=== PATIENT | male | born 1940 | race African-American/Black ===

== ENCOUNTER 2016-04-09 05:09 | Inpatient (IN) | payer MEDICARE ==
[2016-04-09] MEDS ORDERED: NS 0.9% 1000 ML* 1,000 ML IV ONE (05:26)
[2016-04-09 05:55] LABS: Albumin 3.3 g/dL (3.2-5.2); BUN/Creatinine Ratio 11.1 (8-20); Calcium 8.2 mg/dL (8.6-10.3); EGFR African American 95.3 (>60); EGFR Non-African American 74.1 (>60); Globulin 3.1 g/dL (2-4); Potassium 3.7 mmol/L (3.5-5.0); Total Bilirubin 1.3 mg/dL (0.2-1.0); Total Protein 6.4 g/dL (6.4-8.9)
[2016-04-09 05:56] LABS: Troponin I 0.01 ng/mL (<0.04)
[2016-04-09 06:10] LABS: Hematocrit 35 % (42-52); Hemoglobin 11.5 g/dl (14.0-18.0); Mean Corpuscular HGB Conc 33 g/dl (31-36); Mean Corpuscular Hemoglobin 27 pg (27-31); Mean Corpuscular Volume 81 fL (80-94); Mean Platelet Volume 7 um3 (7.4-10.4); Red Cell Distribution Width 20 % (10.5-15); White Blood Count 8.4 10^3/ul (3.5-10.8)
[2016-04-09 06:12] LABS: Add Diff/Slide Review? Slide Review Added; Comments Flag Yes
[2016-04-09] MEDS ORDERED: Iohexol 350* (CONTRAST) 500 ML MDV IV ONE ×2 (06:14→08:01)
--- NOTE | 2016-04-09 06:43 | ED ---
Ac Glynn Erika, scribed for Ari Roblero MD on 04/09/16 at 0532 . Shortness of Breath - HPI Summary HPI Summary: Patient is a 75-year-old male BIBA to the ED with c/o SOB. Per EMS, pt has a Hx COPD, lung cancer. They state he has been increasingly SOB for a month, worse today. Pt has had a productive cough with yellow sputum the past few days. Around 04:00 today, pt got up to walk to the bathroom, and had a syncopal episode due to being SOB. EMS treated pt with a duoneb, and he significantly improved. Pt lives alone. - History of Current Complaint Time Seen by Provider: 04/09/16 05:20 Hx Obtained From: Patient, EMS Onset/Duration: Gradual Onset, Lasting Weeks, Worse Since - today Timing: Constant Current Severity: Moderate Dyspnea At: Rest Aggrevating Factors: Deep Breaths Alleviating Factors: EMS Tx Associated Signs & Symptoms: Cough (Productive) - Allergy/Home Medications Allergies/Adverse Reactions: Allergies Allergy/AdvReac Type Severity Reaction Status Date / Time Penicillins Allergy Intermediate Hives Verified 02/09/16 11:29 Home Medications: Home Medications Albuterol Sulfate [Proair Respiclick] 1 - 2 puff INH Q4HR PRN 04/09/16 [History Confirmed 04/09/16] Escitalopram (NF) [Lexapro (NF)] 10 mg PO DAILY 04/09/16 [History Confirmed 06/21] Ipratropium 0.5MG/2.5ML NEB* [Atrovent 0.5 MG NEB.ROZINA*] 0.5 mg INH Q4H PRN 04/09 [History Confirmed 04/09/16] Tamsulosin CAP* [Flomax CAP*] 0.4 mg PO DAILY 04/09/16 [History Confirmed ] PMH/Surg Hx/FS Hx/Imm Hx Endocrine/Hematology History: Denies: Hx Diabetes, Hx Thyroid Disease, Hx Anemia, Hx Unexplained Bleeding Cardiovascular History: Reports: Hx Hypertension - meds used Denies: Hx Aneurysm, Hx Angina, Hx Angioplasty, Hx Auto Implanted Cardiovert Defib, Hx Cardiac Arrest, Hx Cardiomegaly, Hx Congenital Heart Disease, Hx Congestive Heart Failure, Hx Coronary Artery Disease, Hx Deep Vein Thrombosis, Hx Embolism, Hx Hypercholesterolemia, Hx Hypotension, Hx Pacemaker/ICD, Hx Peripheral Vascular Disease, Hx Rheumatic Fever, Hx Syncope, Hx Valvular Heart Disease, Other Cardiovascular Problems/Disorders Respiratory History: Reports: Hx Asthma, Hx Chronic Obstructive Pulmonary Disease (COPD) Denies: Hx Chronic Bronchitis, Hx Cystic Fibrosis, Hx Lung Cancer, Hx Pleural Effusion, Hx Pneumonia, Hx Pulmonary Edema, Hx Pulmonary Embolism, Hx Seasonal Allergies, Hx Sleep Apnea, Other Respiratory Problems/Disorders GI History: Denies: Hx Cirrhosis, Hx Gall Bladder Disease, Hx Obstructive Bowel, Hx Ileostomy, Hx Ulcer History: Denies: Hx Dialysis, Hx Kidney Stones, Hx Renal Disease Musculoskeletal History: Denies: Hx Arthritis, Hx Osteoporosis Sensory History: Reports: Hx Cataracts - surgery 2012, Hx Contacts or Glasses, Hx Vision Problem Denies: Hx Hearing Aid, Hx Hearing Problem Opthamlomology History: Reports: Hx Cataracts - surgery 2012, Hx Contacts or Glasses, Hx Vision Problem Neurological History: Denies: Hx Dementia, Hx Developmental Delay, Hx Headaches, Hx Migraine, Hx Nerve Disease, Hx Seizures, Hx Transient Ischemic Attacks (TIA) Psychiatric History: Reports: Hx Anxiety, Hx Depression, Hx Panic Disorder - ANXIETY, Hx Substance Abuse - PREVIOUS DRINKER - Cancer History Cancer Type, Location and Year: lung CA Hx Chemotherapy: No - Surgical History Surgery Procedure, Year, and Place: hernia x3, lung bx 2014 Hx Anesthesia Reactions: No Infectious Disease History: Reports: Hx Hepatitis Denies: Hx Human Immunodeficiency Virus (HIV), Hx of Known/Suspected MRSA, Hx Tuberculosis, History Other Infectious Disease, Traveled Outside the [place] in Last 30 Days - Family History Known Family History: Positive: Other - Cancer - Social History Lives: Alone Alcohol Use: None Alcohol Amount: 2 beers, used to be an alcoholic Substance Use Type: Reports: None Substance Use Comment - Amount & Last Used: Pt unable to recall last use, but stated it was a few months ago. Hx Tobacco Use: Yes Smoking Status (MU): Former Smoker Type: Cigarettes Have You Smoked in the Last Year: Yes - quit almost a year ago as of 07/03/15 Review of Systems Positive: Shortness Of Breath, Cough Positive: Syncope All Other Systems Reviewed And Are Negative: Yes Physical Exam Triage Information Reviewed: Yes Vital Signs On Initial Exam: Temp Pulse Resp BP Pulse Ox 98.5 F 142 22 125/73 97 04/09/16 05:15 04/09/16 05:15 04/09/16 05:15 04/09/16 05:15 04/09/16 05:15 Vital Signs Reviewed: Yes Appearance: Positive: No Pain Distress, Ill-Appearing Skin: Positive: Warm Head/Face: Positive: Normal Head/Face Inspection Eyes: Positive: MIRTHA ENT: Positive: Hearing grossly normal Neck: Positive: Supple Respiratory/Lung Sounds: Positive: Decreased Breath Sounds, Rhonchi - rt side Cardiovascular: Positive: Tachycardia Abdomen Description: Positive: Nontender, Soft Bowel Sounds: Positive: Present Musculoskeletal: Positive: Strength/ROM Intact Neurological: Positive: Sensory/Motor Intact Diagnostics - Vital Signs Vital Signs Temp Pulse Resp BP Pulse Ox 04/09/16 05:17 24 125/73 04/09/16 05:15 98.5 F 142 22 125/73 97 - Laboratory Lab Results: Lab Results 04/09/16 04/09/16 04/09/16 Range/Units 05:20 05:20 05:20 WBC (3.5-10.8) 10^3/ul RBC (4.0-5.4) 10^6/ul Hgb (14.0-18.0) g/dl Hct (42-52) % MCV (80-94) fL MCH (27-31) pg MCHC (31-36) g/dl RDW (10.5-15) % Plt Count (150-450) 10^3/ul MPV (7.4-10.4) um3 Neut % (Auto) (38-83) % Lymph % (Auto) (25-47) % [place] % (Auto) (1-9) % Eos % (Auto) (0-6) % Baso % (Auto) (0-2) % Absolute Neuts (auto) (1.5-7.7) 10^3/ul Absolute Lymphs (auto) (1.0-4.8) 10^3/ul Absolute Monos (auto) (0-0.8) 10^3/ul Absolute Eos (auto) (0-0.6) 10^3/ul Absolute Basos (auto) (0-0.2) 10^3/ul Absolute Nucleated RBC 10^3/ul Nucleated RBC % D-Dimer, Quantitative 508 H (Less Than 230) ng/mL Sodium 123 L (133-145) mmol/L Potassium 3.7 (3.5-5.0) mmol/L Chloride 91 L (101-111) mmol/L Carbon Dioxide 23 (22-32) mmol/L Anion Gap 9 (2-11) mmol/L BUN 11 (6-24) mg/dL Creatinine 0.99 (0.67-1.17) mg/dL Est GFR ( Amer) 95.3 (>60) Est GFR (Non-Af Amer) 74.1 (>60) BUN/Creatinine Ratio 11.1 (8-20) Glucose 136 H (70-100) mg/dL Lactic Acid 2.2 H* (0.5-2.0) mmol/L Calcium 8.2 L (8.6-10.3) mg/dL Total Bilirubin 1.30 H (0.2-1.0) mg/dL AST 27 (13-39) U/L ALT 29 (7-52) U/L Alkaline Phosphatase 45 (34-104) U/L Troponin I 0.01 (<0.04) ng/mL B-Natriuretic Peptide ( - 100) pg/mL Total Protein 6.4 (6.4-8.9) g/dL Albumin 3.3 (3.2-5.2) g/dL Globulin 3.1 (2-4) g/dL Albumin/Globulin Ratio 1.1 (1-3) 04/09/16 04/09/16 Range/Units 05:20 05:20 WBC 8.4 (3.5-10.8) 10^3/ul RBC 4.30 (4.0-5.4) 10^6/ul Hgb 11.5 L (14.0-18.0) g/dl Hct 35 L (42-52) % MCV 81 (80-94) fL MCH 27 (27-31) pg MCHC 33 (31-36) g/dl RDW 20 H (10.5-15) % Plt Count 242 (150-450) 10^3/ul MPV 7 L (7.4-10.4) um3 Neut % (Auto) 74.1 (38-83) % Lymph % (Auto) 9.5 L (25-47) % [place] % (Auto) 12.5 H (1-9) % Eos % (Auto) 2.6 (0-6) % Baso % (Auto) 1.3 (0-2) % Absolute Neuts (auto) 6.2 (1.5-7.7) 10^3/ul Absolute Lymphs (auto) 0.8 L (1.0-4.8) 10^3/ul Absolute Monos (auto) 1.0 H (0-0.8) 10^3/ul Absolute Eos (auto) 0.2 (0-0.6) 10^3/ul Absolute Basos (auto) 0.1 (0-0.2) 10^3/ul Absolute Nucleated RBC 0 10^3/ul Nucleated RBC % 0 D-Dimer, Quantitative (Less Than 230) ng/mL Sodium (133-145) mmol/L Potassium (3.5-5.0) mmol/L Chloride (101-111) mmol/L Carbon Dioxide (22-32) mmol/L Anion Gap (2-11) mmol/L BUN (6-24) mg/dL Creatinine (0.67-1.17) mg/dL Est GFR ( Amer) (>60) Est GFR (Non-Af Amer) (>60) BUN/Creatinine Ratio (8-20) Glucose (70-100) mg/dL Lactic Acid (0.5-2.0) mmol/L Calcium (8.6-10.3) mg/dL Total Bilirubin (0.2-1.0) mg/dL AST (13-39) U/L ALT (7-52) U/L Alkaline Phosphatase (34-104) U/L Troponin I (<0.04) ng/mL B-Natriuretic Peptide 11 ( - 100) pg/mL Total Protein (6.4-8.9) g/dL Albumin (3.2-5.2) g/dL Globulin (2-4) g/dL Albumin/Globulin Ratio (1-3) Result Diagrams: 04/09/16 05:20 04/09/16 05:20 Lab Statement: Any lab studies that have been ordered have been reviewed, and results considered in the medical decision making process. - Radiology CXR Xray Interpretation: Positive (See Comments) - Right upper lobe infiltrate/mass Radiology Interpretation Completed By: ED Physician - EKG 05:15 Cardiac Rate: Tachycardia - at 134 bpm EKG Interpretation: Atrial tachycardia Course/Dx - Diagnoses Provider Diagnoses: Syncope, Community acquired pneumonia, Lung cancer, Pleural effusion - Physician Notifications Instructed by Provider To: Admit As Inpatient - Critical Care Time Critical Care Time: 30-74 min Discharge - Discharge Plan Condition: Fair Disposition: ADMITTED TO [facility] The documentation as recorded by the Ac parikh Erika accurately reflects the service I personally performed and the decisions made by , Ari Roblero MD.
--- NOTE | 2016-04-09 08:12 | RAD ---
INDICATION: History of lung carcinoma at the RIGHT upper lobe. Shortness of breath. Recent pneumothorax. History of COPD. COMPARISON: February 22, 2016 CT. August 24, 2015 chest radiograph. TECHNIQUE: Dual energy PA and routine lateral views of the chest were obtained. REPORT: Alveolar consolidation involving the RIGHT upper lobe grossly new compared with the February 22, 2016 exam is most suspicious for pneumonia. Region of residual tumor/scarring at the RIGHT upper lobe superior laterally is partially obscured by the superimposed alveolar consolidation. Diffuse mild prominence of interstitial markings. Grossly clear pleural spaces. Negative for pneumothorax.. LEFT chest port tip at level of superior vena cava directed central. Negative for cardiomegaly. Unremarkable central pulmonary vasculature and mediastinal contours. IMPRESSION: The constellation of findings is most consistent with RIGHT upper with obscuration of the known residual RIGHT upper lobe tumor/scarring.
--- NOTE | 2016-04-09 08:24 | RAD ---
INDICATION: Lung carcinoma. COPD. History of pneumothorax. New consolidation in the RIGHT upper lobe on chest radiograph of the same date. COMPARISON: April 09, 2016 chest radiograph and February 22, 2016 CT. TECHNIQUE: Multidetector CT images were obtained from the lung apices to the upper abdomen with 77 mL Omnipaque 350 IV contrast. Pulmonary angiogram protocol. Multiplanar reformation including with maximum intensity projection. REPORT: Diffuse RIGHT side airway wall thickening from the distal RIGHT mainstem bronchus extending peripheral. Severe narrowing of the RIGHT upper lobe airways with progression. RIGHT upper lobe suprahilar mass measures up to 4.1 x 4.3 cm significantly increased from 1.7 x 2.2 cm previously. Patchy alveolar and interstitial opacities in the RIGHT upper lobe corresponding with the radiographic finding. Diffuse mild prominence of interstitial markings as well as patchy rarefaction consistent with emphysema. 1.6 x 6.3 cm posterior RIGHT apical bulla. Small dependent RIGHT pleural effusion. The LEFT lung is remarkable for minimal basilar atelectasis. Negative for LEFT pleural effusion. Negative for pneumothorax. Mediastinal and RIGHT hilar lymphadenopathy. 1.3 cm short axis precarinal lymph node decreased from 1.6 cm previously. 1.5 cm short axis subcarinal node increased from 0.9 cm previously. 1.9 cm short axis RIGHT suprahilar lymph node increased from 1.2 cm previously. 1.5 cm short axis anterior RIGHT hilar lymph node increased from 1.2 cm previously. Negative for cardiomegaly. Physiologic small volume of pericardial fluid without significant interval change. Prominent central pulmonary arteries with peripheral attenuation most consistent with pulmonary arterial hypertension. Mildly limited CT pulmonary angiogram at the LEFT lower lung zone due to motion artifact. No compelling filling defects evident from the main to the segmental and subsegmental pulmonary arteries to indicate pulmonary embolism. Limited images through the upper abdomen are remarkable for a dominant 6.2 cm sharply circumscribed simple appearing cyst at the dome of the LEFT hepatic lobe. Negative for suspicious thoracic osseous lesions. IMPRESSION: 1. No evidence for pulmonary embolism. 2. The constellation of findings is consistent with significant interval progression of RIGHT upper lobe lung carcinoma with associated worsening of mediastinal and RIGHT hilar lymphadenopathy. Alveolar interstitial opacity within the RIGHT upper lobe peripheral to the tumor may represent postobstructive pneumonitis/pneumonia or less likely lymphangitic spread of carcinoma. 3. Small RIGHT pleural effusion. 4. Negative for pneumothorax.
[2016-04-09] MEDS ORDERED: Cefepime(*) 2 GM in NS 0.9% 50 ML* 50 ML IVPB ONE (08:45)
[2016-04-09] MEDS ORDERED: Ciprofloxacin 400MG IVPREMIX(* 400 MG/200 ML BAG IVPB ONE (08:45)
[2016-04-09] MEDS ORDERED: Albuterol/Ipratropium NEB.SOL* Albuterol 2.5 MG/Ipratropium 0.5 MG 3 ML INH PRN (12:06)
[2016-04-09] MEDS ORDERED: Mometasone/Formoter 100/5 MDI INH PRN (12:06)
--- NOTE | 2016-04-09 14:00 | ED ---
Juan Glynn Soohyun, scribed for Villa Loco MD on 04/09/16 at 0934 . Progress - Progress Note Progress Note: Signed out from Dr. Roblero at the shift change. Course/Dx - Diagnoses Provider Diagnoses: Syncope, Community acquired pneumonia, Lung cancer, Pleural effusion - Provider Notifications Discussed Care Of Patient With: Both Oncologist and Hospitalist paged at [address] Mckinnon (Oncologist) at 0930 AM Time Discussed With Above Provider: 09:30 Instructed by Provider To: Admit As Inpatient The documentation as recorded by the scribeJuan Soohyun accurately reflects the service I personally performed and the decisions made by Claudy ramsey Jerry, MD.
[2016-04-09] MEDS: Acetaminophen TAB* 325 MG PO PRN (19:54)
[2016-04-09] MEDS ORDERED: Levalbuterol 1.25MG/0.5ML NEB INH ONE (20:00)
[2016-04-09] MEDS ORDERED: Cefepime(*) 2 GM in NS 0.9% 50 ML* 50 ML IVPB SCH (20:00)
[2016-04-09] MEDS: Ipratropium 0.5MG/2.5ML NEB* 0.5 MG/2.5 ML NEB.SOLN INH PRN (20:02)
[2016-04-09] MEDS: Levalbuterol 1.25MG/0.5ML NEB INH SCH (20:03)
[2016-04-09] MEDS: Ipratropium 0.5MG/2.5ML NEB* 0.5 MG/2.5 ML NEB.SOLN INH SCH (20:04)
--- NOTE | 2016-04-09 20:07 | PN ---
Hospitalist Progress Note CTSP for SOB/wheezing. On arrival patient appeared to be lying comfortably in bed but was audibly wheezing and SOB while speaking, stated he was SOB even at rest. Denies chest pain. On exam, he has diffuse wheezing throughout all lung armas, tachycardic, irregular at times, no LE edema On tele patient has been persistently tachycardic since admission with HR ranging from low 100s to 130s-140s. Appears to be sinus with APCs. Dr. Escobedo ordered one time Xopenex. Will continue q4h scheduled Xopenex and Ipratropium. Will order IV Solumedrol 40 mg q8h, patient will receive 2 doses overnight and primary team can decide on further therapy in the morning. Continue to monitor on tele, hopefully discontinuation of albuterol will aid in resolution of tachycardia. Would opt to hold on any BZDs at this point as patient does not appear acutely anxious.
[2016-04-09] MEDS: Ciprofloxacin 400MG IVPREMIX(* 400 MG/200 ML BAG IVPB SCH (21:25)
[2016-04-09] MEDS: methylPREDNISolone SOD 40 MG* 1 ML VIAL IV SCH (21:25)
[2016-04-09] MEDS: Montelukast Sodium TAB* 10 MG PO SCH (21:25)
[2016-04-09] MEDS: Heparin VIAL(*) 5000 UNITS/ML VIAL (FIVE THOUSAND) SUBCUT SCH (22:52)
[2016-04-09] MEDS: Cefepime(*) 2 GM in NS 0.9% 50 ML* 50 ML IVPB SCH (22:52)
--- NOTE | 2016-04-09 23:17 | CONS ---
PULMONARY CONSULTATION REPORT: DATE OF CONSULTATION: 04/09/16 CONSULTATION REQUESTED BY: MATT Brown. REASON FOR CONSULTATION: Evaluation of shortness of breath and cough. HISTORY OF PRESENT ILLNESS: The patient is a 75-year-old male known to me from outpatient evaluation with history of emphysema, T3N2 [id number] lung cancer involving right upper lobe status post chemotherapy and radiation. The patient was brought into the emergency room for evaluation of worsening shortness of breath. The patient was last seen by me in February 2016, at which time he presented with acute COPD exacerbation. The patient improved with prednisone and outpatient antibiotics. The patient started having worsening shortness of breath over the [place] time. The patient reports subjective fevers. The patient also reports worsening shortness of breath and productive cough. The patient denies hemoptysis, loss of weight. He has gained significant weight recently. The patient lives in [place] [facility] and reports sick contacts recently. The patient denies recent travel. Further evaluation in the emergency room, the patient was noted to be in significant respiratory distress with wheezing. The patient was started on broad- spectrum antibiotics and was admitted for further evaluation. The patient had CT of chest performed in the ED. I have personally reviewed CT scan of the chest - no evidence of pulmonary embolism. The patient was noted to have significant interval progression of right upper lobe lesion along with worsening mediastinal and hilar lymphadenopathy. The patient also noted to have airspace opacities involving the right upper lobe. There was evidence of small right pleural effusion. The patient did not have white counts on CBC. His lactic acid was slightly elevated at 2.2. His troponins were within normal limits. PAST MEDICAL HISTORY: 1. COPD. 2. T3N2 [id number] lung cancer involving right upper lobe status post chemo and radiation. 3. Depression. 4. Hypertension. 5. Right-sided inguinal hernia. 6. Accelerated junctional rhythm. 7. Diverticulitis. PAST SURGICAL HISTORY: 1. Hernia repair. 2. Tonsillectomy and adenoidectomy. 3. Right eye surgery. 4. Cataract. 5. Colonoscopy. ALLERGIES: PENICILLIN. FAMILY HISTORY: Reviewed and noncontributory to current complaint. 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 Smoked 1 pack per day, quit recently, occasional alcohol intake. No drug abuse. REVIEW OF SYSTEMS: All 14 systems were reviewed and as per HPI, review of systems negative other than stated in HPI. PHYSICAL EXAMINATION: General: The patient is in bed, in no significant distress. Vital Signs: Temperature 100.1, pulse 112 beats per minute, respiratory rate 18 per minute, O2 sat 98% on 2 L, blood pressure 129/71. HEENT : Pupils are equal and reactive to light. Mucous membranes moist. Neck: Supple. No accessory muscles of respiration. Respiratory: Good air entry bilaterally, scattered wheeze present bilaterally, prolonged expiratory phase. Cardiovascular: S1, S2 present. Tachycardic. Abdomen: Soft, nontender, nondistended. Bowel sounds present. Extremities: Normal range of motion. No fractures. Skin: No rashes or bruises. Neurological: No focal deficits. LABORATORY DATA: WBC count 8.4, hemoglobin 11.5, hematocrit 35, platelet count 242. D-dimer elevated at 508. Sodium 123, potassium 3.7, chloride 91, bicarb 23, BUN 9, creatinine 0.99, lactate 2.2, troponins within normal limits. CT of the chest as described above in HPI. IMPRESSION AND RECOMMENDATION: 75-year-old old male with [id number] lung cancer of right upper lobe status post chemotherapy and radiation with worsening shortness of breath, with recent chronic obstructive pulmonary disease exacerbation. Acute chronic obstructive pulmonary disease exacerbation. Postobstructive pneumonia versus Recurrence of lung cancer. Continue with broad-spectrum antibiotics for management of postobstructive pneumonia. Continue with bronchodilators. Given evidence of acute chronic obstructive pulmonary disease exacerbation, would also recommend IV Solu-Medrol. Continue with O2 supplementation. Lactic acid is elevated with no white count or acute signs of sepsis. The patient might need bronchoscopy with transbronchial biopsy once respiratory status improves slightly to evaluate for postobstructive pneumonia versus recurrence of malignancy. Thank you for allowing me to participate in the care of your patient. Will follow up with you. [id number]/[facility] #: [id number] ELEUTERIO
[2016-04-10] MEDS: Levalbuterol 1.25MG/0.5ML NEB INH SCH ×7 (00:03→23:39)
[2016-04-10] MEDS: Ipratropium 0.5MG/2.5ML NEB* 0.5 MG/2.5 ML NEB.SOLN INH SCH ×7 (00:03→23:40)
[2016-04-10] MEDS: methylPREDNISolone SOD 40 MG* 1 ML VIAL IV SCH ×3 (05:44→21:03)
[2016-04-10] MEDS: Heparin VIAL(*) 5000 UNITS/ML VIAL (FIVE THOUSAND) SUBCUT SCH ×3 (05:44→21:02)
[2016-04-10] MEDS: CMC:Escitalopram (NF) 10 MG TAB PO SCH (09:14)
[2016-04-10] MEDS: Ciprofloxacin 400MG IVPREMIX(* 400 MG/200 ML BAG IVPB SCH (09:14)
[2016-04-10] MEDS: Tamsulosin CAP* 0.4 MG PO SCH (09:14)
[2016-04-10] MEDS: Cefepime(*) 2 GM in NS 0.9% 50 ML* 50 ML IVPB SCH ×2 (10:31→21:49)
--- NOTE | 2016-04-10 10:37 | PN ---
Progress Note - Progress Note SOAP: Subjective: significant SOB over night, treated with nebs and increased steroids. currently feels better this am. still coughing up thick sputum. Objective: Vital Signs Temp Pulse Resp BP Pulse Ox 98.7 F 89 16 123/68 92 04/10/16 07:28 04/10/16 07:48 04/10/16 08:00 04/10/16 07:28 04/10/16 07:48 sitting flat in bed in NAD perr eomi op dry adentulous diffuse exp wheeze and rhonchi s1 s2 nl soft obese NT + bs no LE edema A+O x 3, nonfocal neurological exam Laboratory Results - last 24 hr 04/09/16 04/09/16 15:09 21:25 Lactic Acid 1.4 Troponin I 0.01 Acetaminophen (Tylenol Tab*) 650 mg PO Q4H PRN PRN Reason: FEVER Last Admin: 04/09/16 19:54 Dose: 650 mg Escitalopram Oxalate (Lexapro (Nf)) 10 mg PO DAILY [facility] Last Admin: 04/10/16 09:14 Dose: 10 mg Heparin Sodium (Porcine) (Heparin Vial(*)) 5,000 units SUBCUT Q8HR [facility] Last Admin: 04/10/16 05:44 Dose: 5,000 units Ciprofloxacin/Dextrose (Cipro 400 Mg Ivpremix(*)) 400 mg in 200 mls @ 200 mls/ hr IVPB Q12HR [facility] Last Admin: 04/10/16 09:14 Dose: 200 mls/hr Cefepime HCl 2 gm/ Sodium (Chloride) 50 mls @ 100 mls/hr IVPB 1000,2200 [facility] Last Admin: 04/09/16 22:52 Dose: 100 mls/hr Ipratropium Sheldon (Atrovent 0.5 Mg Neb.Sameera*) 0.5 mg INH Q4H PRN PRN Reason: SOB/WHEEZING Last Admin: 04/09/16 20:02 Dose: 0.5 mg Ipratropium Sheldon (Atrovent 0.5 Mg Neb.Sameera*) 0.5 mg INH [id number] AWAKE [facility] Last Admin: 04/10/16 07:46 Dose: 0.5 mg Levalbuterol HCl (Xopenex 1.25 Mg/0.5 Ml Neb.Sameera*) 1.25 mg INH [id number] AWAKE [facility] Last Admin: 04/10/16 07:47 Dose: 1.25 mg Methylprednisolone Sodium Succinate (Solu-Medrol*) 40 mg IV Q8H [facility] Last Admin: 04/10/16 05:44 Dose: 40 mg Mometasone Furoate/Formoterol Fumar (Dulera 100/5 Mdi*) 2 puff INH BID PRN PRN Reason: SHORTNESS OF BREATH Montelukast Sodium (Singulair Tab*) 10 mg PO BEDTIME [facility] Last Admin: 04/09/16 21:25 Dose: 10 mg Tamsulosin HCl (Flomax Cap*) 0.4 mg PO DAILY [facility] Last Admin: 04/10/16 09:14 Dose: 0.4 mg Assessment: 75 yo M w T3N2 lung CA sp chemoRT currently in surveillance presenting with fevers, cough and worsening SOB. His CT shows evidence of a 4 cm right upper lobe mass that is either PNA (there are air bronchograms) or recurrent/ progressive disease. I completely agree with Dr. Bahena that we will likely need bronchoscopy to sort this out. For now we will continue with steroids, antibiotics and nebulizers. He seems better than last night, though his lungs still sound rhonchorous and wheezy. Plan: -fu sputum culture -labs today pending -influenza swab, though less likely -cont solumedrol 40 mg IV q8 hrs -cont nebs -stop cipro, change to clinda -heparin sc DVT prophylaxis DNR
[2016-04-10 10:55] LABS: Hematocrit 32 % (42-52); Hemoglobin 10.6 g/dl (14.0-18.0); Mean Corpuscular HGB Conc 33 g/dl (31-36); Mean Corpuscular Hemoglobin 27 pg (27-31); Mean Corpuscular Volume 80 fL (80-94); Mean Platelet Volume 7 um3 (7.4-10.4); Red Blood Count 3.95 10^6/ul (4.0-5.4); Red Cell Distribution Width 20 % (10.5-15); White Blood Count 6.4 10^3/ul (3.5-10.8)
[2016-04-10 11:15] LABS: BUN/Creatinine Ratio 12.6 (8-20); Calcium 8.2 mg/dL (8.6-10.3); EGFR African American 110.6 (>60); Potassium 4.2 mmol/L (3.5-5.0); Total Bilirubin 0.8 mg/dL (0.2-1.0)
[2016-04-10] MEDS: Clindamycin 600 MG IVPREMIX(* 600 MG/50 ML SDV IV SCH ×2 (11:41→18:56)
--- NOTE | 2016-04-10 18:42 | PN ---
Progress Note - Progress Note Note: Pulm consult f/u note 04/10/16. Pt seen and examined at bedside. Pt reported improvement in breathing. Had significant SOB yesterday that responded to bronchodilators and solumedrol Active Medications Generic Name Dose Route Start Last Admin Trade Name Freq PRN Reason Stop Dose Admin Acetaminophen 650 mg 04/09/16 18:58 04/09/16 19:54 Tylenol Tab* PO 650 mg Q4H PRN Administration FEVER Escitalopram Oxalate 10 mg 04/10/16 09:00 04/10/16 09:14 Lexapro (Nf) PO 10 mg DAILY [facility] Administration Heparin Sodium (Porcine) 5,000 units 04/09/16 22:00 04/10/16 14:48 Heparin Vial(*) SUBCUT 5,000 units Q8HR [facility] Administration Cefepime HCl 2 gm/ Sodium 50 mls @ 100 mls/hr 04/09/16 22:00 04/10/16 10:31 Chloride IVPB 100 mls/hr 1000,2200 [facility] Administration Clindamycin HCl/Dextrose 600 mg in 50 mls @ 100 mls/hr 04/10/16 11:00 11:41 Cleocin 600 Mg Ivpremix(*) Sdv IV 100 mls/hr Q8H [facility] Administration Sodium Chloride 500 mls @ 0 mls/hr 04/10/16 19:00 04/10/16 18:25 Ns 0.9% 500 Ml Bag* IV 04/10/16 19:01 999 mls/hr ONCE ONE Administration As Directed Ipratropium [place] 0.5 mg 04/09/16 12:06 04/09/16 20:02 Atrovent 0.5 Mg Neb.Sameera* INH 0.5 mg Q4H PRN Administration SOB/WHEEZING Ipratropium [place] 0.5 mg 04/09/16 20:00 04/10/16 16:09 Atrovent 0.5 Mg Neb.Sameera* INH 0.5 mg [id number] AWAKE [facility] Administration Levalbuterol HCl 1.25 mg 04/09/16 20:00 04/10/16 16:09 Xopenex 1.25 Mg/0.5 Ml Neb.Sameera* INH 1.25 mg [id number] AWAKE [facility] Administration Methylprednisolone Sodium Succinate 40 mg 04/09/16 21:00 04/10/16 14:48 Solu-Medrol* IV 40 mg Q8H [facility] Administration Mometasone Furoate/Formoterol Fumar 2 puff 04/09/16 12:06 Dulera 100/5 Mdi* INH BID PRN SHORTNESS OF BREATH Montelukast Sodium 10 mg 04/09/16 21:00 04/09/16 21:25 Singulair Tab* PO 10 mg BEDTIME [facility] Administration Tamsulosin HCl 0.4 mg 04/10/16 09:00 04/10/16 09:14 Flomax Cap* PO 0.4 mg DAILY [facility] Administration Vital Signs Temp Pulse Resp BP Pulse Ox 98.0 F 122 14 142/82 92 04/10/16 15:23 04/10/16 16:11 04/10/16 16:11 04/10/16 15:23 04/10/16 16:11 Gen:sitting in chair, in NAD HEENT: PANCHO, no JVD, mucus membranes dry Resp: diffuse exp wheeze and rhonchi b/l CVS; s1 s2 nl Abd: soft obese NT + bs Ext: no LE edema Neuro: A+O x 3, nonfocal neurological exam Laboratory Results - last 24 hr 04/09/16 04/09/16 15:09 21:25 Lactic Acid 1.4 Troponin I 0.01 I/R: 75 yo M w T3N2 lung CA sp chemoRT currently in surveillance presenting with fevers, cough and worsening SOB. His CT shows progression and change in right upper lobe mass with increase in size and surrounding air space opacities that is either PNA (there are air bronchograms) or recurrent/progressive disease. Pt with acute COPD exacerbation currently improving with bronchodilators and solumedrol He will need bronchoscopy when resp status is improved for transbronchial bx to evaluate for recurrence of malignancy Radiation pneumonitis is also possibility which should respond to steroids -cont solumedrol 40 mg IV q8 hrs -cont nebs -cont clinda -heparin sc DVT prophylaxis DNR
[2016-04-10] MEDS ORDERED: NS 0.9% 500 ML* 500 ML IV ONE (19:00)
[2016-04-10] MEDS: Montelukast Sodium TAB* 10 MG PO SCH (21:02)
[2016-04-10] MEDS: Acetaminophen TAB* 325 MG PO PRN (23:47)
[2016-04-11] MEDS: Levalbuterol 1.25MG/0.5ML NEB INH SCH ×6 (03:36→23:36)
[2016-04-11] MEDS: Ipratropium 0.5MG/2.5ML NEB* 0.5 MG/2.5 ML NEB.SOLN INH SCH ×6 (03:36→23:36)
[2016-04-11] MEDS: Clindamycin 600 MG IVPREMIX(* 600 MG/50 ML SDV IV SCH ×3 (04:16→19:29)
[2016-04-11] MEDS: methylPREDNISolone SOD 40 MG* 1 ML VIAL IV SCH ×3 (05:17→21:49)
[2016-04-11] MEDS: Heparin VIAL(*) 5000 UNITS/ML VIAL (FIVE THOUSAND) SUBCUT SCH ×3 (05:17→21:50)
[2016-04-11 05:21] LABS: Hematocrit 32 % (42-52); Hemoglobin 10.4 g/dl (14.0-18.0); Mean Corpuscular HGB Conc 33 g/dl (31-36); Mean Corpuscular Hemoglobin 27 pg (27-31); Mean Corpuscular Volume 81 fL (80-94); Mean Platelet Volume 7 um3 (7.4-10.4); Red Cell Distribution Width 20 % (10.5-15)
[2016-04-11 05:31] LABS: BUN/Creatinine Ratio 17.2 (8-20); Calcium 8.7 mg/dL (8.6-10.3); EGFR African American 95.3 (>60); EGFR Non-African American 74.1 (>60); Potassium 4.2 mmol/L (3.5-5.0)
[2016-04-11] MEDS ORDERED: NS 0.9% 1000 ML* 1,000 ML IV SCH (08:00)
[2016-04-11] MEDS ORDERED: Morphine INJ* 2 MG/ML 1 ML CARPUJECT IV STA (08:12)
[2016-04-11] MEDS ORDERED: methylPREDNISolone 125 MG* 2 ML VIAL IV STA (08:13)
--- NOTE | 2016-04-11 08:13 | PN ---
Progress Note - Progress Note SOAP: Subjective: significant SOB this am. reports that he had trouble breathing all night (I was not informed). does not feel that the breathing treatments are helping. also very cold and shaking (though his room is quite cold right now). Objective: Vital Signs Temp Pulse Resp BP Pulse Ox 98.0 F 98 16 136/79 99 04/11/16 03:33 04/11/16 03:51 04/11/16 07:46 04/11/16 03:33 04/11/16 03:51 current RR 22, O2 sat 96% on 3 L in clear respiratory distress using excessory muscles perr eomi op dry tachycardic diffuse exp wheeze, rhonchi soft nt +bs no le edema A+O x 3 nonfocal neurological exam Laboratory Results - last 24 hr 04/10/16 04/10/16 04/10/16 10:45 10:45 11:50 WBC 6.4 RBC 3.95 L Hgb 10.6 L Hct 32 L MCV 80 MCH 27 MCHC 33 RDW 20 H Plt Count 241 MPV 7 L Neut % (Auto) 92.0 H Lymph % (Auto) 3.7 L [place] % (Auto) 3.9 Eos % (Auto) 0.1 Baso % (Auto) 0.3 Absolute Neuts (auto) 5.9 Absolute Lymphs (auto) 0.2 L Absolute Monos (auto) 0.2 Absolute Eos (auto) 0 Absolute Basos (auto) 0 Absolute Nucleated RBC 0 Nucleated RBC % 0 Sodium 126 L Potassium 4.2 Chloride 93 L Carbon Dioxide 23 Anion Gap 10 BUN 11 Creatinine 0.87 Est GFR ( Amer) 110.6 Est GFR (Non-Af Amer) 86.0 BUN/Creatinine Ratio 12.6 Glucose 227 H Calcium 8.2 L Magnesium Total Bilirubin 0.80 AST 22 ALT 24 Alkaline Phosphatase 42 Total Protein 6.0 L Albumin 3.0 L Globulin 3.0 Albumin/Globulin Ratio 1.0 Influenza A (Rapid) Negative Influenza B (Rapid) Negative 04/11/16 04/11/16 04:26 04:26 WBC 13.0 H RBC 3.90 L Hgb 10.4 L Hct 32 L MCV 81 MCH 27 MCHC 33 RDW 20 H Plt Count 275 MPV 7 L Neut % (Auto) 91.0 H Lymph % (Auto) 2.6 L [place] % (Auto) 6.1 Eos % (Auto) 0.1 Baso % (Auto) 0.2 Absolute Neuts (auto) 11.9 H Absolute Lymphs (auto) 0.3 L Absolute Monos (auto) 0.8 Absolute Eos (auto) 0 Absolute Basos (auto) 0 Absolute Nucleated RBC 0.01 Nucleated RBC % 0 Sodium 123 L Potassium 4.2 Chloride 92 L Carbon Dioxide 20 L Anion Gap 11 BUN 17 Creatinine 0.99 Est GFR ( Amer) 95.3 Est GFR (Non-Af Amer) 74.1 BUN/Creatinine Ratio 17.2 Glucose 212 H Calcium 8.7 Magnesium 2.0 Total Bilirubin AST ALT Alkaline Phosphatase Total Protein Albumin Globulin Albumin/Globulin Ratio Influenza A (Rapid) Influenza B (Rapid) Acetaminophen (Tylenol Tab*) 650 mg PO Q4H PRN PRN Reason: FEVER Last Admin: 04/10/16 23:47 Dose: 650 mg Escitalopram Oxalate (Lexapro (Nf)) 10 mg PO DAILY [facility] Last Admin: 04/10/16 09:14 Dose: 10 mg Heparin Sodium (Porcine) (Heparin Vial(*)) 5,000 units SUBCUT Q8HR [facility] Last Admin: 04/11/16 05:17 Dose: 5,000 units Cefepime HCl 2 gm/ Sodium (Chloride) 50 mls @ 100 mls/hr IVPB 1000,2200 [facility] Last Admin: 04/10/16 21:49 Dose: 100 mls/hr Clindamycin HCl/Dextrose (Cleocin 600 Mg Ivpremix(*) Sdv) 600 mg in 50 mls @ 100 mls/hr IV Q8H [facility] Last Admin: 04/11/16 04:16 Dose: 100 mls/hr Ipratropium [place] (Atrovent 0.5 Mg Neb.Sameera*) 0.5 mg INH Q4H PRN PRN Reason: SOB/WHEEZING Last Admin: 04/09/16 20:02 Dose: 0.5 mg Ipratropium [place] (Atrovent 0.5 Mg Neb.Sameera*) 0.5 mg INH [id number] AWAKE [facility] Last Admin: 04/11/16 08:14 Dose: 0.5 mg Levalbuterol HCl (Xopenex 1.25 Mg/0.5 Ml Neb.Sameera*) 1.25 mg INH [id number] AWAKE [facility] Last Admin: 04/11/16 08:14 Dose: 1.25 mg Methylprednisolone Sodium Succinate (Solu-Medrol*) 40 mg IV Q8H [facility] Last Admin: 04/11/16 05:17 Dose: 40 mg Methylprednisolone Sodium Succinate (Solu-Medrol*) 125 mg IV ONCE STA Stop: 04/11/16 08:14 Mometasone Furoate/Formoterol Fumar (Dulera 100/5 Mdi*) 2 puff INH BID PRN PRN Reason: SHORTNESS OF BREATH Montelukast Sodium (Singulair Tab*) 10 mg PO BEDTIME [facility] Last Admin: 04/10/16 21:02 Dose: 10 mg Morphine Sulfate (Morphine Inj (Syringe)*) 2 mg IV ED ONCE STA Stop: 04/11/16 08:13 Tamsulosin HCl (Flomax Cap*) 0.4 mg PO DAILY [facility] Last Admin: 04/10/16 09:14 Dose: 0.4 mg Assessment: 75 yo M w T3N2 lung CA sp chemoRT currently in surveillance presenting with fevers, cough and worsening SOB. His CT shows evidence of a 4 cm right upper lobe mass that is either PNA (there are air bronchograms) or recurrent/ progressive disease. Today he is clearly worse. I have discussed with Dr. Bahena and we will try giving a stat high dose steroid and morphine, along with another breathing treatment. I am concerned that if he does not open up he may need to move to the ICU for closer monitoring. 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
[2016-04-11] MEDS: CMC:Escitalopram (NF) 10 MG TAB PO SCH (09:34)
[2016-04-11] MEDS: Tamsulosin CAP* 0.4 MG PO SCH (09:34)
[2016-04-11] MEDS: Cefepime(*) 2 GM in NS 0.9% 50 ML* 50 ML IVPB SCH ×2 (09:36→21:51)
[2016-04-11] MEDS: Ipratropium 0.5MG/2.5ML NEB* 0.5 MG/2.5 ML NEB.SOLN INH PRN (13:09)
[2016-04-11] MEDS ORDERED: Levalbuterol HFA INHALER* 1 PUFF MDI INH PRN (13:23)
--- NOTE | 2016-04-11 15:28 | PN ---
Progress Note - Progress Note Note: Pulm consult f/u note 04/11/16. Pt was seen and examined at bedside. Pt had worsening SOB today, responded to dose of solumedrol. Active Medications Generic Name Dose Route Start Last Admin Trade Name Freq PRN Reason Stop Dose Admin Acetaminophen 650 mg 04/09/16 18:58 04/10/16 23:47 Tylenol Tab* PO 650 mg Q4H PRN Administration FEVER Escitalopram Oxalate 10 mg 04/10/16 09:00 04/11/16 09:34 Lexapro (Nf) PO 10 mg DAILY [facility] Administration Heparin Sodium (Porcine) 5,000 units 04/09/16 22:00 04/11/16 14:23 Heparin Vial(*) SUBCUT 5,000 units Q8HR [facility] Administration Cefepime HCl 2 gm/ Sodium 50 mls @ 100 mls/hr 04/09/16 22:00 04/11/16 09:36 Chloride IVPB 100 mls/hr 1000,2200 [facility] Administration Clindamycin HCl/Dextrose 600 mg in 50 mls @ 100 mls/hr 04/10/16 11:00 11:11 Cleocin 600 Mg Ivpremix(*) Sdv IV 100 mls/hr Q8H [facility] Administration Ipratropium [place] 0.5 mg 04/09/16 12:06 04/11/16 13:09 Atrovent 0.5 Mg Neb.Sameera* INH 0.5 mg Q4H PRN Administration SOB/WHEEZING Ipratropium [place] 0.5 mg 04/09/16 20:00 04/11/16 11:56 Atrovent 0.5 Mg Neb.Sameera* INH Not Given [id number] AWAKE [facility] Levalbuterol HCl 1.25 mg 04/09/16 20:00 04/11/16 11:56 Xopenex 1.25 Mg/0.5 Ml Neb.Sameera* INH Not Given [id number] AWAKE [facility] Levalbuterol HCl 2 puff 04/11/16 13:23 Xopenex Hfa Inhaler* INH Q4H PRN SHORTNESS OF BREATH Methylprednisolone Sodium Succinate 40 mg 04/09/16 21:00 04/11/16 14:23 Solu-Medrol* IV 40 mg Q8H [facility] Administration Mometasone Furoate/Formoterol Fumar 2 puff 04/09/16 12:06 Dulera 100/5 Mdi* INH BID PRN SHORTNESS OF BREATH Montelukast Sodium 10 mg 04/09/16 21:00 04/10/16 21:02 Singulair Tab* PO 10 mg BEDTIME [facility] Administration Tamsulosin HCl 0.4 mg 04/10/16 09:00 04/11/16 09:34 Flomax Cap* PO 0.4 mg DAILY [facility] Administration Vital Signs Temp Pulse Resp BP Pulse Ox 97.5 F 91 22 139/75 94 04/11/16 08:11 04/11/16 13:10 04/11/16 13:10 04/11/16 08:11 04/11/16 13:10 Gen:sitting in chair, in NAD HEENT: PANCHO, no JVD, mucus membranes dry Resp: diffuse exp wheeze and rhonchi b/l CVS; s1 s2 nl Abd: soft obese NT + bs Ext: no LE edema Neuro: A+O x 3, nonfocal neurological exam Laboratory Results - last 24 hr 04/11/16 04/11/16 04:26 04:26 WBC 13.0 H RBC 3.90 L Hgb 10.4 L Hct 32 L MCV 81 MCH 27 MCHC 33 RDW 20 H Plt Count 275 MPV 7 L Neut % (Auto) 91.0 H Lymph % (Auto) 2.6 L [place] % (Auto) 6.1 Eos % (Auto) 0.1 Baso % (Auto) 0.2 Absolute Neuts (auto) 11.9 H Absolute Lymphs (auto) 0.3 L Absolute Monos (auto) 0.8 Absolute Eos (auto) 0 Absolute Basos (auto) 0 Absolute Nucleated RBC 0.01 Nucleated RBC % 0 Sodium 123 L Potassium 4.2 Chloride 92 L Carbon Dioxide 20 L Anion Gap 11 BUN 17 Creatinine 0.99 Est GFR ( Amer) 95.3 Est GFR (Non-Af Amer) 74.1 BUN/Creatinine Ratio 17.2 Glucose 212 H Calcium 8.7 Magnesium 2.0 Laboratory Results - last 24 hr 04/09/16 04/09/16 15:09 21:25 Lactic Acid 1.4 Troponin I 0.01 I/R: 75 yo M w T3N2 lung CA sp chemoRT currently in surveillance presenting with fevers, cough and worsening SOB. His CT shows progression and change in right upper lobe mass with increase in size and surrounding air space opacities that is either PNA (there are air bronchograms) or recurrent/progressive disease. Pt with acute COPD exacerbation , had worsening SOB this am, still has significant broncho spasm 125mg Solumedrol ordered by Dr Whelan. Pt reproted improvement when I saw him c/w current dose of solumedrol Hyponatremia continues, has received fluids yesterday, clinically appears dry He will need bronchoscopy when resp status is improved for transbronchial bx to evaluate for recurrence of malignancy Radiation pneumonitis is also possibility which should respond to steroids -cont solumedrol 40 mg IV q8 hrs -cont nebs, has refused nebs this am, agreed to use them again as ordered -cont clinda -heparin sc DVT prophylaxis DNR D/w Dr Whelan
[2016-04-11] MEDS: Montelukast Sodium TAB* 10 MG PO SCH (21:47)
[2016-04-12] MEDS: Clindamycin 600 MG IVPREMIX(* 600 MG/50 ML SDV IV SCH ×3 (03:07→18:24)
[2016-04-12] MEDS: Ipratropium 0.5MG/2.5ML NEB* 0.5 MG/2.5 ML NEB.SOLN INH SCH ×5 (03:11→20:37)
[2016-04-12] MEDS: Levalbuterol 1.25MG/0.5ML NEB INH SCH ×5 (03:11→20:38)
[2016-04-12] MEDS: methylPREDNISolone SOD 40 MG* 1 ML VIAL IV SCH ×3 (04:51→20:58)
[2016-04-12] MEDS: Heparin VIAL(*) 5000 UNITS/ML VIAL (FIVE THOUSAND) SUBCUT SCH ×3 (04:55→20:58)
[2016-04-12] MEDS: Tamsulosin CAP* 0.4 MG PO SCH (08:14)
[2016-04-12] MEDS: CMC:Escitalopram (NF) 10 MG TAB PO SCH (08:14)
[2016-04-12] MEDS: Cefepime(*) 2 GM in NS 0.9% 50 ML* 50 ML IVPB SCH ×2 (09:23→22:08)
[2016-04-12 09:38] LABS: Hematocrit 31 % (42-52); Hemoglobin 10.2 g/dl (14.0-18.0); Mean Corpuscular HGB Conc 33 g/dl (31-36); Mean Corpuscular Hemoglobin 26 pg (27-31); Mean Corpuscular Volume 81 fL (80-94); Mean Platelet Volume 7 um3 (7.4-10.4); Red Blood Count 3.86 10^6/ul (4.0-5.4); Red Cell Distribution Width 20 % (10.5-15); White Blood Count 13.8 10^3/ul (3.5-10.8)
[2016-04-12 09:39] LABS: Comments Flag Yes
[2016-04-12 09:40] LABS: Add Diff/Slide Review? Slide Review Added
[2016-04-12 09:49] LABS: BUN/Creatinine Ratio 17.2 (8-20); Calcium 8.6 mg/dL (8.6-10.3); EGFR African American 110.6 (>60); Potassium 4.7 mmol/L (3.5-5.0)
--- NOTE | 2016-04-12 10:27 | PN ---
Progress Note - Progress Note SOAP: Subjective: []Breathing feels a little better but still not at baseline. Tried to walk to bathroom yesterday and very SOB. Nebs are helping. No fever or chills, eating. Acetaminophen (Tylenol Tab*) 650 mg PO Q4H PRN PRN Reason: FEVER Last Admin: 04/10/16 23:47 Dose: 650 mg Escitalopram Oxalate (Lexapro (Nf)) 10 mg PO DAILY [facility] Last Admin: 04/12/16 08:14 Dose: 10 mg Heparin Sodium (Porcine) (Heparin Vial(*)) 5,000 units SUBCUT Q8HR [facility] Last Admin: 04/12/16 04:55 Dose: 5,000 units Cefepime HCl 2 gm/ Sodium (Chloride) 50 mls @ 100 mls/hr IVPB 1000,2200 [facility] Last Admin: 04/12/16 09:23 Dose: 100 mls/hr Clindamycin HCl/Dextrose (Cleocin 600 Mg Ivpremix(*) Sdv) 600 mg in 50 mls @ 100 mls/hr IV Q8H [facility] Last Admin: 04/12/16 03:07 Dose: 100 mls/hr Ipratropium [place] (Atrovent 0.5 Mg Neb.Sameera*) 0.5 mg INH Q4H PRN PRN Reason: SOB/WHEEZING Last Admin: 04/11/16 13:09 Dose: 0.5 mg Ipratropium [place] (Atrovent 0.5 Mg Neb.Sameera*) 0.5 mg INH [id number] AWAKE [facility] Last Admin: 04/12/16 08:45 Dose: 0.5 mg Levalbuterol HCl (Xopenex 1.25 Mg/0.5 Ml Neb.Sameera*) 1.25 mg INH [id number] AWAKE [facility] Last Admin: 04/12/16 08:45 Dose: 1.25 mg Levalbuterol HCl (Xopenex Hfa Inhaler*) 2 puff INH Q4H PRN PRN Reason: SHORTNESS OF BREATH Methylprednisolone Sodium Succinate (Solu-Medrol*) 40 mg IV Q8H [facility] Last Admin: 04/12/16 04:51 Dose: 40 mg Mometasone Furoate/Formoterol Fumar (Dulera 100/5 Mdi*) 2 puff INH BID PRN PRN Reason: SHORTNESS OF BREATH Montelukast Sodium (Singulair Tab*) 10 mg PO BEDTIME [facility] Last Admin: 04/11/16 21:47 Dose: 10 mg Tamsulosin HCl (Flomax Cap*) 0.4 mg PO DAILY [facility] Last Admin: 04/12/16 08:14 Dose: 0.4 mg Objective: [] Vital Signs Temp Pulse Resp BP Pulse Ox 97.4 F 81 18 148/87 98 04/12/16 03:12 04/12/16 08:48 04/12/16 08:48 04/12/16 03:12 04/12/16 08:48 HEENT: mucosa moist, no thrush Wheezing BL, prolonged exp, good air movement. RRR s1S2 Obease, NT ND and good BS Ext w/o C,C,E Neuro AAOx3, gross non focal Assessment: []75 year old with acute respiratory decompensation. I agree with broad differential discussed previously. He seem to be improving on steroids, nebulizers and broad spectrum antibiotics. Plan: []1. No changes today to plan 2. Encourage ambulation each day 3. Follow labs 4. Will need bronchoscope as out patient.
--- NOTE | 2016-04-12 15:17 | PN ---
Progress Note - Progress Note Note: Pulm consult f/u note 04/12/16. Pt seen and examined at bedside. Pt reports improvmenet in breathing Active Medications Generic Name Dose Route Start Last Admin Trade Name Freq PRN Reason Stop Dose Admin Acetaminophen 650 mg 04/09/16 18:58 04/10/16 23:47 Tylenol Tab* PO 650 mg Q4H PRN Administration FEVER Escitalopram Oxalate 10 mg 04/10/16 09:00 04/12/16 08:14 Lexapro (Nf) PO 10 mg DAILY [facility] Administration Heparin Sodium (Porcine) 5,000 units 04/09/16 22:00 04/12/16 13:02 Heparin Vial(*) SUBCUT 5,000 units Q8HR [facility] Administration Cefepime HCl 2 gm/ Sodium 50 mls @ 100 mls/hr 04/09/16 22:00 04/12/16 09:23 Chloride IVPB 100 mls/hr 1000,2200 [facility] Administration Clindamycin HCl/Dextrose 600 mg in 50 mls @ 100 mls/hr 04/10/16 11:00 10:43 Cleocin 600 Mg Ivpremix(*) Sdv IV 100 mls/hr Q8H [facility] Administration Ipratropium [place] 0.5 mg 04/09/16 12:06 04/11/16 13:09 Atrovent 0.5 Mg Neb.Sameera* INH 0.5 mg Q4H PRN Administration SOB/WHEEZING Ipratropium [place] 0.5 mg 04/09/16 20:00 04/12/16 15:03 Atrovent 0.5 Mg Neb.Sameera* INH 0.5 mg [id number] AWAKE [facility] Administration Levalbuterol HCl 1.25 mg 04/09/16 20:00 04/12/16 15:03 Xopenex 1.25 Mg/0.5 Ml Neb.Sameera* INH 1.25 mg [id number] AWAKE [facility] Administration Levalbuterol HCl 2 puff 04/11/16 13:23 Xopenex Hfa Inhaler* INH Q4H PRN SHORTNESS OF BREATH Methylprednisolone Sodium Succinate 40 mg 04/09/16 21:00 04/12/16 12:54 Solu-Medrol* IV 40 mg Q8H [facility] Administration Mometasone Furoate/Formoterol Fumar 2 puff 04/09/16 12:06 Dulera 100/5 Mdi* INH BID PRN SHORTNESS OF BREATH Montelukast Sodium 10 mg 04/09/16 21:00 04/11/16 21:47 Singulair Tab* PO 10 mg BEDTIME [facility] Administration Tamsulosin HCl 0.4 mg 04/10/16 09:00 04/12/16 08:14 Flomax Cap* PO 0.4 mg DAILY [facility] Administration Vital Signs Temp Pulse Resp BP Pulse Ox 97.5 F 91 18 151/90 98 04/12/16 07:45 04/12/16 15:05 04/12/16 15:05 04/12/16 07:45 04/12/16 15:05 en:sitting in chair, in NAD HEENT: PANCHO, no JVD, mucus membranes dry Resp: diffuse exp wheeze and rhonchi b/l CVS; s1 s2 nl Abd: soft obese NT + bs Ext: no LE edema Neuro: A+O x 3, nonfocal neurological exam Laboratory Results - last 24 hr 04/11/16 04/12/16 04/12/16 19:32 09:15 09:15 WBC 13.8 H RBC 3.86 L Hgb 10.2 L Hct 31 L MCV 81 MCH 26 L MCHC 33 RDW 20 H Plt Count 294 MPV 7 L Neut % (Auto) 92.4 H Lymph % (Auto) 1.7 L [place] % (Auto) 5.8 Eos % (Auto) 0.1 Baso % (Auto) 0 Absolute Neuts (auto) 12.7 H Absolute Lymphs (auto) 0.2 L Absolute Monos (auto) 0.8 Absolute Eos (auto) 0 Absolute Basos (auto) 0 Absolute Nucleated RBC 0.03 Nucleated RBC % 0.2 Sodium 126 L Potassium 4.7 Chloride 95 L Carbon Dioxide 24 Anion Gap 7 BUN 15 Creatinine 0.87 Est GFR ( Amer) 110.6 Est GFR (Non-Af Amer) 86.0 BUN/Creatinine Ratio 17.2 Glucose 191 H Calcium 8.6 Ur Random Sodium < 18 Laboratory Results - last 24 hr 04/09/16 04/09/16 15:09 21:25 Lactic Acid 1.4 Troponin I 0.01 I/R: 75 yo M w T3N2 lung CA sp chemoRT currently in surveillance presenting with fevers, cough and worsening SOB. His CT shows progression and change in right upper lobe mass with increase in size and surrounding air space opacities that is either PNA (there are air bronchograms) or recurrent/progressive disease. Pt with acute COPD exacerbation , improving slowly c/w current dose of solumedrol Hyponatremia continues He will need bronchoscopy when resp status is improved for transbronchial bx to evaluate for recurrence of malignancy Radiation pneumonitis is also possibility which should respond to steroids -cont solumedrol 40 mg IV q8 hrs -cont nebs -cont clinda -heparin sc DVT prophylaxis DNR
[2016-04-12] MEDS: Montelukast Sodium TAB* 10 MG PO SCH (20:58)
[2016-04-13] MEDS: Ipratropium 0.5MG/2.5ML NEB* 0.5 MG/2.5 ML NEB.SOLN INH SCH ×4 (00:39→17:47)
[2016-04-13] MEDS: Levalbuterol 1.25MG/0.5ML NEB INH SCH ×4 (00:39→20:10)
[2016-04-13] MEDS: Clindamycin 600 MG IVPREMIX(* 600 MG/50 ML SDV IV SCH ×3 (03:21→19:50)
[2016-04-13] MEDS: methylPREDNISolone SOD 40 MG* 1 ML VIAL IV SCH ×3 (05:28→20:58)
[2016-04-13] MEDS: Heparin VIAL(*) 5000 UNITS/ML VIAL (FIVE THOUSAND) SUBCUT SCH ×3 (05:28→21:32)
[2016-04-13] MEDS: Tamsulosin CAP* 0.4 MG PO SCH (09:22)
[2016-04-13] MEDS: Hydrochlorothiazide TAB* 25 MG PO SCH (09:22)
[2016-04-13] MEDS: Lisinopril TAB* 10 MG PO SCH (09:23)
[2016-04-13] MEDS: Cefepime(*) 2 GM in NS 0.9% 50 ML* 50 ML IVPB SCH ×2 (09:23→21:32)
[2016-04-13] MEDS: CMC:Escitalopram (NF) 10 MG TAB PO SCH (09:23)
[2016-04-13 09:36] LABS: Add Diff/Slide Review? Slide Review Added; Comments Flag Yes; Hematocrit 32 % (42-52); Hemoglobin 10.5 g/dl (14.0-18.0); Mean Corpuscular HGB Conc 33 g/dl (31-36); Mean Corpuscular Hemoglobin 27 pg (27-31); Mean Corpuscular Volume 81 fL (80-94); Mean Platelet Volume 6 um3 (7.4-10.4); Red Blood Count 3.95 10^6/ul (4.0-5.4); Red Cell Distribution Width 21 % (10.5-15); White Blood Count 12.2 10^3/ul (3.5-10.8)
[2016-04-13 09:52] LABS: Albumin 3.2 g/dL (3.2-5.2); BUN/Creatinine Ratio 19.5 (8-20); Calcium 9.2 mg/dL (8.6-10.3); EGFR African American 110.6 (>60); Globulin 2.9 g/dL (2-4); Potassium 4.7 mmol/L (3.5-5.0); Total Bilirubin 0.5 mg/dL (0.2-1.0); Total Protein 6.1 g/dL (6.4-8.9)
--- NOTE | 2016-04-13 16:40 | PN ---
Progress Note - Progress Note SOAP: Subjective: []Did a little better yesterday. Still very SOB, RR and HR increased with walking. No fevers. He feels he is improving. Acetaminophen (Tylenol Tab*) 650 mg PO Q4H PRN PRN Reason: FEVER Last Admin: 04/10/16 23:47 Dose: 650 mg Escitalopram Oxalate (Lexapro (Nf)) 10 mg PO DAILY [facility] Last Admin: 04/13/16 09:23 Dose: 10 mg Heparin Sodium (Porcine) (Heparin Vial(*)) 5,000 units SUBCUT Q8HR [facility] Last Admin: 04/13/16 14:07 Dose: 5,000 units Hydrochlorothiazide (Hydrodiuril Tab*) 12.5 mg PO DAILY [facility] Last Admin: 04/13/16 09:22 Dose: 12.5 mg Cefepime HCl 2 gm/ Sodium (Chloride) 50 mls @ 100 mls/hr IVPB 1000,2200 [facility] Last Admin: 04/13/16 09:23 Dose: 100 mls/hr Clindamycin HCl/Dextrose (Cleocin 600 Mg Ivpremix(*) Sdv) 600 mg in 50 mls @ 100 mls/hr IV Q8H [facility] Last Admin: 04/13/16 10:15 Dose: 100 mls/hr Ipratropium [place] (Atrovent 0.5 Mg Neb.Sameera*) 0.5 mg INH Q4H PRN PRN Reason: SOB/WHEEZING Last Admin: 04/11/16 13:09 Dose: 0.5 mg Ipratropium [place] (Atrovent 0.5 Mg Neb.Sameera*) 0.5 mg INH [id number] AWAKE [facility] Last Admin: 04/13/16 13:35 Dose: 0.5 mg Levalbuterol HCl (Xopenex Hfa Inhaler*) 2 puff INH Q4H PRN PRN Reason: SHORTNESS OF BREATH Levalbuterol HCl (Xopenex 1.25 Mg/0.5 Ml Neb.Sameera*) 1.25 mg INH [id number] AWAKE [facility] Last Admin: 04/13/16 13:35 Dose: 1.25 mg Lisinopril (Prinivil Tab*) 10 mg PO DAILY [facility] Last Admin: 04/13/16 09:23 Dose: 10 mg Methylprednisolone Sodium Succinate (Solu-Medrol*) 40 mg IV Q8H [facility] Last Admin: 04/13/16 12:44 Dose: 40 mg Mometasone Furoate/Formoterol Fumar (Dulera 100/5 Mdi*) 2 puff INH BID PRN PRN Reason: SHORTNESS OF BREATH Montelukast Sodium (Singulair Tab*) 10 mg PO BEDTIME [facility] Last Admin: 04/12/16 20:58 Dose: 10 mg Tamsulosin HCl (Flomax Cap*) 0.4 mg PO DAILY [facility] Last Admin: 04/13/16 09:22 Dose: 0.4 mg Objective: [] Vital Signs Temp Pulse Resp BP Pulse Ox 98.1 F 71 18 137/81 98 04/13/16 11:08 04/13/16 13:38 04/13/16 13:38 04/13/16 11:08 04/13/16 13:38 HEENT: mucosa moist, no thrush Wheezing BL, prolonged exp, good air movement. Less wheezing then yesterday RRR s1S2 Obease, NT ND and good BS Ext w/o C,C,E Neuro AAOx3, gross non focal Labs reviewed. Assessment: []75 year old with acute respiratory decompensation. I agree with broad differential discussed previously. He seem to be improving on steroids, nebulizers and broad spectrum antibiotics. Plan: []1. No changes today to plan 2. Encourage ambulation each day 3. Follow labs 4. Will need bronchoscope as out patient.
[2016-04-13] MEDS ORDERED: Metoprolol Tartrate IV* 1 MG/ML 5 ML VIAL IV ONE (21:00)
[2016-04-13] MEDS: Montelukast Sodium TAB* 10 MG PO SCH (22:00)
[2016-04-14] MEDS: Ipratropium 0.5MG/2.5ML NEB* 0.5 MG/2.5 ML NEB.SOLN INH SCH ×5 (01:00→20:25)
[2016-04-14] MEDS: Levalbuterol 1.25MG/0.5ML NEB INH SCH ×5 (01:00→20:25)
[2016-04-14] MEDS: Clindamycin 600 MG IVPREMIX(* 600 MG/50 ML SDV IV SCH ×3 (02:46→20:21)
[2016-04-14] MEDS: methylPREDNISolone SOD 40 MG* 1 ML VIAL IV SCH ×3 (05:16→20:25)
[2016-04-14] MEDS: Heparin VIAL(*) 5000 UNITS/ML VIAL (FIVE THOUSAND) SUBCUT SCH ×3 (05:16→20:25)
[2016-04-14 05:30] LABS: Hematocrit 32 % (42-52); Hemoglobin 10.4 g/dl (14.0-18.0); Mean Corpuscular HGB Conc 33 g/dl (31-36); Mean Corpuscular Hemoglobin 27 pg (27-31); Mean Corpuscular Volume 82 fL (80-94); Mean Platelet Volume 6 um3 (7.4-10.4); Red Blood Count 3.91 10^6/ul (4.0-5.4); Red Cell Distribution Width 21 % (10.5-15); White Blood Count 11.6 10^3/ul (3.5-10.8)
[2016-04-14 05:33] LABS: Comments Flag Yes
[2016-04-14 05:34] LABS: Add Diff/Slide Review? Slide Review Added
[2016-04-14 05:48] LABS: BUN/Creatinine Ratio 22.9 (8-20); Calcium 9.1 mg/dL (8.6-10.3); EGFR African American 116.8 (>60); EGFR Non-African American 90.8 (>60); Globulin 2.7 g/dL (2-4); Potassium 4.7 mmol/L (3.5-5.0); Total Bilirubin 0.5 mg/dL (0.2-1.0); Total Protein 5.7 g/dL (6.4-8.9)
[2016-04-14 06:20] LABS: Basophilic Stippling 1+; Immature Granulocytes 7 % (0-9); Metamyelocytes % 2 % (0-2); Myelocytes % 2 % (0-1); Neutrophil % 80 % (38-83); Polychromasia 1+
--- NOTE | 2016-04-14 10:04 | PN ---
Subjective Date of Service: 04/14/16 Interval History: Pt had problems with sleeping at night and slept most of the morning, no feels better, but requests a sleeping aid. Breathing feels" better" Objective Active Medications: Acetaminophen (Tylenol Tab*) 650 mg PO Q4H PRN PRN Reason: FEVER Last Admin: 04/10/16 23:47 Dose: 650 mg Escitalopram Oxalate (Lexapro (Nf)) 10 mg PO DAILY [facility] Last Admin: 04/13/16 09:23 Dose: 10 mg Heparin Sodium (Porcine) (Heparin Vial(*)) 5,000 units SUBCUT Q8HR [facility] Last Admin: 04/14/16 05:16 Dose: 5,000 units Hydrochlorothiazide (Hydrodiuril Tab*) 12.5 mg PO DAILY [facility] Last Admin: 04/13/16 09:22 Dose: 12.5 mg Cefepime HCl 2 gm/ Sodium (Chloride) 50 mls @ 100 mls/hr IVPB 1000,2200 [facility] Last Admin: 04/13/16 21:32 Dose: 100 mls/hr Clindamycin HCl/Dextrose (Cleocin 600 Mg Ivpremix(*) Sdv) 600 mg in 50 mls @ 100 mls/hr IV Q8H [facility] Last Admin: 04/14/16 02:46 Dose: 100 mls/hr Ipratropium [place] (Atrovent 0.5 Mg Neb.Sameera*) 0.5 mg INH Q4H PRN PRN Reason: SOB/WHEEZING Last Admin: 04/11/16 13:09 Dose: 0.5 mg Ipratropium [place] (Atrovent 0.5 Mg Neb.Sameera*) 0.5 mg INH [id number] AWAKE [facility] Last Admin: 04/14/16 07:39 Dose: 0.5 mg Levalbuterol HCl (Xopenex Hfa Inhaler*) 2 puff INH Q4H PRN PRN Reason: SHORTNESS OF BREATH Levalbuterol HCl (Xopenex 1.25 Mg/0.5 Ml Neb.Sameera*) 1.25 mg INH [id number] AWAKE [facility] Last Admin: 04/14/16 07:39 Dose: 1.25 mg Lisinopril (Prinivil Tab*) 10 mg PO DAILY [facility] Last Admin: 04/13/16 09:23 Dose: 10 mg Methylprednisolone Sodium Succinate (Solu-Medrol*) 40 mg IV Q8H [facility] Last Admin: 04/14/16 05:16 Dose: 40 mg Mometasone Furoate/Formoterol Fumar (Dulera 100/5 Mdi*) 2 puff INH BID PRN PRN Reason: SHORTNESS OF BREATH Montelukast Sodium (Singulair Tab*) 10 mg PO BEDTIME [facility] Last Admin: 04/13/16 22:00 Dose: 10 mg Tamsulosin HCl (Flomax Cap*) 0.4 mg PO DAILY [facility] Last Admin: 04/13/16 09:22 Dose: 0.4 mg Vital Signs 04/13/16 04/13/16 04/13/16 11:08 13:38 15:11 Temperature 98.1 F 97.6 F Pulse Rate 93 71 94 Respiratory 18 18 18 Rate Blood Pressure 137/81 149/87 (mmHg) O2 Sat by Pulse 99 98 99 Oximetry 04/13/16 04/13/16 04/13/16 19:34 20:00 20:22 Temperature 98.3 F Pulse Rate 96 91 Respiratory 19 20 22 Rate Blood Pressure 143/82 (mmHg) O2 Sat by Pulse 100 92 Oximetry 04/13/16 04/13/16 04/14/16 20:40 23:59 03:03 Temperature 98.4 F 98.0 F 97.7 F Pulse Rate 121 93 61 Respiratory 18 20 20 Rate Blood Pressure 139/108 142/82 147/87 (mmHg) O2 Sat by Pulse 99 97 100 Oximetry 04/14/16 04/14/16 03:08 07:40 Temperature Pulse Rate 75 70 Respiratory 16 16 Rate Blood Pressure (mmHg) O2 Sat by Pulse 100 99 Oximetry Oxygen Devices in Use Now: Nasal Cannula - at 3 l Appearance: 75 yo M in nAd, aAOx3 Eyes: No Scleral Icterus, PERRLA Ears/Nose/Mouth/Throat: NL Teeth, Lips, Gums, Mucous Membranes Moist Neck: NL Appearance and Movements; NL JVP, Trachea Midline Respiratory: Symmetrical Chest Expansion and Respiratory Effort, - - b/l mid lung whezes R>L Cardiovascular: NL Sounds; No Murmurs; No JVD, RRR Abdominal: NL Sounds; No Tenderness; No Distention Lymphatic: No Cervical Adenopathy Extremities: No Edema, No Clubbing, Cyanosis Skin: No Rash or Ulcers, No Nodules or Sclerosis Neurological: Alert and Oriented x 3, NL Muscle Strength and Tone Result Diagrams: 04/14/16 05:15 04/14/16 05:15 Additional Lab and Data: Lab Results 04/09/16 04/09/16 04/09/16 Range/Units 05:20 05:20 05:20 WBC (3.5-10.8) 10^3/ul RBC (4.0-5.4) 10^6/ul Hgb (14.0-18.0) g/dl Hct (42-52) % MCV (80-94) fL MCH (27-31) pg MCHC (31-36) g/dl RDW (10.5-15) % Plt Count (150-450) 10^3/ul MPV (7.4-10.4) um3 Neut % (Auto) (38-83) % Lymph % (Auto) (25-47) % [place] % (Auto) (1-9) % Eos % (Auto) (0-6) % Baso % (Auto) (0-2) % Absolute Neuts (auto) (1.5-7.7) 10^3/ul Absolute Lymphs (auto) (1.0-4.8) 10^3/ul Absolute Monos (auto) (0-0.8) 10^3/ul Absolute Eos (auto) (0-0.6) 10^3/ul Absolute Basos (auto) (0-0.2) 10^3/ul Absolute Nucleated RBC 10^3/ul Nucleated RBC % D-Dimer, Quantitative 508 H (Less Than 230) ng/mL Sodium 123 L (133-145) mmol/L Potassium 3.7 (3.5-5.0) mmol/L Chloride 91 L (101-111) mmol/L Carbon Dioxide 23 (22-32) mmol/L Anion Gap 9 (2-11) mmol/L BUN 11 (6-24) mg/dL Creatinine 0.99 (0.67-1.17) mg/dL Est GFR ( Amer) 95.3 (>60) Est GFR (Non-Af Amer) 74.1 (>60) BUN/Creatinine Ratio 11.1 (8-20) Glucose 136 H (70-100) mg/dL Lactic Acid 2.2 H* (0.5-2.0) mmol/L Calcium 8.2 L (8.6-10.3) mg/dL Total Bilirubin 1.30 H (0.2-1.0) mg/dL AST 27 (13-39) U/L ALT 29 (7-52) U/L Alkaline Phosphatase 45 (34-104) U/L Troponin I 0.01 (<0.04) ng/mL B-Natriuretic Peptide ( - 100) pg/mL Total Protein 6.4 (6.4-8.9) g/dL Albumin 3.3 (3.2-5.2) g/dL Globulin 3.1 (2-4) g/dL Albumin/Globulin Ratio 1.1 (1-3) 04/09/16 04/09/16 Range/Units 05:20 05:20 WBC 8.4 (3.5-10.8) 10^3/ul RBC 4.30 (4.0-5.4) 10^6/ul Hgb 11.5 L (14.0-18.0) g/dl Hct 35 L (42-52) % MCV 81 (80-94) fL MCH 27 (27-31) pg MCHC 33 (31-36) g/dl RDW 20 H (10.5-15) % Plt Count 242 (150-450) 10^3/ul MPV 7 L (7.4-10.4) um3 Neut % (Auto) 74.1 (38-83) % Lymph % (Auto) 9.5 L (25-47) % [place] % (Auto) 12.5 H (1-9) % Eos % (Auto) 2.6 (0-6) % Baso % (Auto) 1.3 (0-2) % Absolute Neuts (auto) 6.2 (1.5-7.7) 10^3/ul Absolute Lymphs (auto) 0.8 L (1.0-4.8) 10^3/ul Absolute Monos (auto) 1.0 H (0-0.8) 10^3/ul Absolute Eos (auto) 0.2 (0-0.6) 10^3/ul Absolute Basos (auto) 0.1 (0-0.2) 10^3/ul Absolute Nucleated RBC 0 10^3/ul Nucleated RBC % 0 D-Dimer, Quantitative (Less Than 230) ng/mL Sodium (133-145) mmol/L Potassium (3.5-5.0) mmol/L Chloride (101-111) mmol/L Carbon Dioxide (22-32) mmol/L Anion Gap (2-11) mmol/L BUN (6-24) mg/dL Creatinine (0.67-1.17) mg/dL Est GFR ( Amer) (>60) Est GFR (Non-Af Amer) (>60) BUN/Creatinine Ratio (8-20) Glucose (70-100) mg/dL Lactic Acid (0.5-2.0) mmol/L Calcium (8.6-10.3) mg/dL Total Bilirubin (0.2-1.0) mg/dL AST (13-39) U/L ALT (7-52) U/L Alkaline Phosphatase (34-104) U/L Troponin I (<0.04) ng/mL B-Natriuretic Peptide 11 ( - 100) pg/mL Total Protein (6.4-8.9) g/dL Albumin (3.2-5.2) g/dL Globulin (2-4) g/dL Albumin/Globulin Ratio (1-3) Microbiology and Other Data: Microbiology 04/13/16 22:00 Gram Stain - Final Sputum Expectorated 04/10/16 11:45 Influenza Types A,B Antigen (DENNISE) - Final Nasal Specimen received for Influenza A/B Molecular testing Assess/Plan/Problems-Billing Assessment: 75 yo M with postobstructive pneumonia, lung cancer and COPD exacerbation - Patient Problems (1) Postobstructive pneumonia Comment: cont clindamycin and Cefepime. Cx NTD (2) Adenocarcinoma of lung Comment: s/p chemo, plan for outpatient bronchoscopy (3) COPD exacerbation Comment: Continue bronchodilators ans solu medrol. (4) Hyponatremia Comment: HCTZ discontinued 04/14/16 (5) DVT prophylaxis Comment: - SQ heparin.
[2016-04-14] MEDS: CMC:Escitalopram (NF) 10 MG TAB PO SCH (13:40)
[2016-04-14] MEDS: Lisinopril TAB* 10 MG PO SCH (13:40)
[2016-04-14] MEDS: Tamsulosin CAP* 0.4 MG PO SCH (13:40)
[2016-04-14] MEDS: Cefepime(*) 2 GM in NS 0.9% 50 ML* 50 ML IVPB SCH ×2 (13:41→22:00)
[2016-04-14] MEDS: Hydrochlorothiazide TAB* 25 MG PO SCH (13:58)
[2016-04-14] MEDS: Montelukast Sodium TAB* 10 MG PO SCH (20:24)
[2016-04-14] MEDS: CMC:Melatonin (NF) 3 MG TAB PO PRN (22:36)
[2016-04-15] MEDS: Levalbuterol 1.25MG/0.5ML NEB INH SCH ×5 (01:00→19:27)
[2016-04-15] MEDS: Ipratropium 0.5MG/2.5ML NEB* 0.5 MG/2.5 ML NEB.SOLN INH SCH ×5 (01:00→19:27)
[2016-04-15] MEDS: Clindamycin 600 MG IVPREMIX(* 600 MG/50 ML SDV IV SCH ×3 (03:09→19:38)
[2016-04-15] MEDS: methylPREDNISolone SOD 40 MG* 1 ML VIAL IV SCH ×3 (05:01→21:14)
[2016-04-15] MEDS: Heparin VIAL(*) 5000 UNITS/ML VIAL (FIVE THOUSAND) SUBCUT SCH ×3 (05:02→21:14)
[2016-04-15] MEDS ORDERED: Lisinopril TAB* 10 MG PO SCH (09:00)
--- NOTE | 2016-04-15 11:17 | PN ---
Progress Note - Progress Note SOAP: Subjective: []No change. Breathing not better or worse. Eating fine, no fever or chills. SOB and tachycardia with any movement. Saturations have been fine. HR increased only with distress. Acetaminophen (Tylenol Tab*) 650 mg PO Q4H PRN PRN Reason: FEVER Last Admin: 04/10/16 23:47 Dose: 650 mg Heparin Sodium (Porcine) (Heparin Vial(*)) 5,000 units SUBCUT Q8HR [facility] Last Admin: 04/15/16 05:02 Dose: 5,000 units Heparin Sodium (Porcine) (Heparin Flush Port (Ivad)*) 5 ml FLUSH DAILY [facility] PRN Reason: Protocol Cefepime HCl 2 gm/ Sodium (Chloride) 50 mls @ 100 mls/hr IVPB 1000,2200 [facility] Last Admin: 04/14/16 22:00 Dose: 100 mls/hr Clindamycin HCl/Dextrose (Cleocin 600 Mg Ivpremix(*) Sdv) 600 mg in 50 mls @ 100 mls/hr IV Q8H [facility] Last Admin: 04/15/16 03:09 Dose: 100 mls/hr Ipratropium [place] (Atrovent 0.5 Mg Neb.Sameera*) 0.5 mg INH Q4H PRN PRN Reason: SOB/WHEEZING Last Admin: 04/11/16 13:09 Dose: 0.5 mg Ipratropium [place] (Atrovent 0.5 Mg Neb.Sameera*) 0.5 mg INH [id number] AWAKE [facility] Last Admin: 04/15/16 08:39 Dose: 0.5 mg Levalbuterol HCl (Xopenex Hfa Inhaler*) 2 puff INH Q4H PRN PRN Reason: SHORTNESS OF BREATH Levalbuterol HCl (Xopenex 1.25 Mg/0.5 Ml Neb.Sameera*) 1.25 mg INH [id number] AWAKE [facility] Last Admin: 04/15/16 08:39 Dose: 1.25 mg Lisinopril (Prinivil Tab*) 20 mg PO DAILY [facility] Melatonin (Melatonin (Nf)) 3 mg PO BEDTIME PRN; Protocol PRN Reason: Sleep Last Admin: 04/14/16 22:36 Dose: 3 mg Methylprednisolone Sodium Succinate (Solu-Medrol*) 40 mg IV Q8H [facility] Last Admin: 04/15/16 05:01 Dose: 40 mg Mometasone Furoate/Formoterol Fumar (Dulera 100/5 Mdi*) 2 puff INH BID PRN PRN Reason: SHORTNESS OF BREATH Montelukast Sodium (Singulair Tab*) 10 mg PO BEDTIME [facility] Last Admin: 04/14/16 20:24 Dose: 10 mg Tamsulosin HCl (Flomax Cap*) 0.4 mg PO DAILY [facility] Last Admin: 04/14/16 13:40 Dose: 0.4 mg Objective: [] Vital Signs Temp Pulse Resp BP Pulse Ox 97.7 F 63 16 126/75 97 04/15/16 00:28 04/15/16 08:39 04/15/16 08:39 04/15/16 00:28 04/15/16 08:39 HEENT: mucosa moist, no thrush Wheezing BL, prolonged exp, good air movement. No change RRR s1S2 Obease, NT ND and good BS Ext w/o C,C,E Neuro AAOx3, gross non focal Labs reviewed. Assessment: []75 year old with acute respiratory decompensation. I agree with broad differential discussed previously. He seem to be improving on steroids, nebulizers and broad spectrum antibiotics. Plan: []1. Stable but not improving respiratory status, will discuss again with pulmonary. 2. Encourage ambulation each day 3. Hyponatremia. Will hold SSRI. 4. Will need bronchoscope as out patient.
[2016-04-15] MEDS: Tamsulosin CAP* 0.4 MG PO SCH (11:48)
[2016-04-15] MEDS: Cefepime(*) 2 GM in NS 0.9% 50 ML* 50 ML IVPB SCH ×2 (11:49→21:13)
--- NOTE | 2016-04-15 17:07 | PN ---
Progress Note - Progress Note Note: Pulm consult f/u note 04/15/16. Pt seen and examined at bedside. Reprots feeling slightly better, however dyspneic and tachycardic with minimal exertion Active Medications Generic Name Dose Route Start Last Admin Trade Name Freq PRN Reason Stop Dose Admin Acetaminophen 650 mg 04/09/16 18:58 04/10/16 23:47 Tylenol Tab* PO 650 mg Q4H PRN Administration FEVER Heparin Sodium (Porcine) 5,000 units 04/09/16 22:00 04/15/16 13:41 Heparin Vial(*) SUBCUT 5,000 units Q8HR [facility] Administration Heparin Sodium (Porcine) 5 ml 04/15/16 10:00 04/15/16 13:42 Heparin Flush Port (Ivad)* FLUSH 5 ml DAILY [facility] Administration Protocol Cefepime HCl 2 gm/ Sodium 50 mls @ 100 mls/hr 04/09/16 22:00 04/15/16 11:49 Chloride IVPB 100 mls/hr 1000,2200 [facility] Administration Clindamycin HCl/Dextrose 600 mg in 50 mls @ 100 mls/hr 04/10/16 11:00 12:30 Cleocin 600 Mg Ivpremix(*) Sdv IV 100 mls/hr Q8H [facility] Administration Ipratropium [place] 0.5 mg 04/09/16 12:06 04/11/16 13:09 Atrovent 0.5 Mg Neb.Sameera* INH 0.5 mg Q4H PRN Administration SOB/WHEEZING Ipratropium [place] 0.5 mg 04/12/16 19:00 04/15/16 12:57 Atrovent 0.5 Mg Neb.Sameera* INH 0.5 mg [id number] AWAKE [facility] Administration Levalbuterol HCl 2 puff 04/11/16 13:23 Xopenex Hfa Inhaler* INH Q4H PRN SHORTNESS OF BREATH Levalbuterol HCl 1.25 mg 04/13/16 01:00 04/15/16 12:58 Xopenex 1.25 Mg/0.5 Ml Neb.Sameera* INH 1.25 mg [id number] AWAKE [facility] Administration Lisinopril 20 mg 04/15/16 09:00 04/15/16 11:48 Prinivil Tab* PO 20 mg DAILY [facility] Administration Melatonin 3 mg 04/14/16 22:18 04/14/16 22:36 Melatonin (Nf) PO 3 mg BEDTIME PRN Administration Sleep Protocol Methylprednisolone Sodium Succinate 40 mg 04/09/16 21:00 04/15/16 13:41 Solu-Medrol* IV 40 mg Q8H [facility] Administration Mometasone Furoate/Formoterol Fumar 2 puff 04/09/16 12:06 Dulera 100/5 Mdi* INH BID PRN SHORTNESS OF BREATH Montelukast Sodium 10 mg 04/09/16 21:00 04/14/16 20:24 Singulair Tab* PO 10 mg BEDTIME [facility] Administration Tamsulosin HCl 0.4 mg 04/10/16 09:00 04/15/16 11:48 Flomax Cap* PO 0.4 mg DAILY [facility] Administration Zolpidem Tartrate 5 mg 04/15/16 17:01 Ambien Tab* PO 04/15/16 17:02 ONCE ONE Vital Signs Temp Pulse Resp BP Pulse Ox 98.4 F 109 16 135/88 98 04/15/16 11:35 04/15/16 13:01 04/15/16 13:01 04/15/16 11:35 04/15/16 13:01 en:sitting in chair, in NAD HEENT: PANCHO, no JVD, mucus membranes dry Resp: diffuse exp wheeze and rhonchi b/l CVS; s1 s2 nl Abd: soft obese NT + bs Ext: no LE edema Neuro: A+O x 3, nonfocal neurological exam Laboratory Results - last 24 hr 04/09/16 04/09/16 15:09 21:25 Lactic Acid 1.4 Troponin I 0.01 I/R: 75 yo M w T3N2 lung CA sp chemoRT currently in surveillance presenting with fevers, cough and worsening SOB. His CT shows progression and change in right upper lobe mass with increase in size and surrounding air space opacities that is either PNA (there are air bronchograms) or recurrent/progressive disease. Pt with acute COPD exacerbation , improving slowly, still has wheeze b/l c/w current dose of solumedrol, no taper yet c/w bronchodilators, O2 supplementation Will rpt CXR EKG reviewed- shows sinus tacycardia Hyponatremia continues He will need bronchoscopy when resp status is improved for transbronchial bx to evaluate for recurrence of malignancy Radiation pneumonitis is also possibility which should respond to steroids -cont solumedrol 40 mg IV q8 hrs -cont nebs -On cefepime, clinda - Will hold Lisinopril-? drug induced bronchospasm -heparin sc DVT prophylaxis DNR D/w Dr Escobedo
--- NOTE | 2016-04-15 17:26 | RAD ---
Indication: Shortness of breath. Single frontal portable view of the chest is reviewed and compared to previous exam dated April 09, 2016. Persistent right upper lobe mass with atelectasis and infiltrate is noted. Lung armas appear hyperinflated. Left lung field is clear. IMPRESSION: Persistent infiltrate in the right upper lobe consistent with atelectasis or infiltrate from a mass. Hyperinflated lung armas are noted.
[2016-04-15] MEDS ORDERED: Diltiazem TAB* 30 MG PO SCH (18:00)
[2016-04-15] MEDS ORDERED: Zolpidem TAB* 5 MG PO ONE (21:00)
[2016-04-15] MEDS: Montelukast Sodium TAB* 10 MG PO SCH (21:14)
[2016-04-15] MEDS: CMC:Melatonin (NF) 3 MG TAB PO PRN (21:26)
[2016-04-16] MEDS: Ipratropium 0.5MG/2.5ML NEB* 0.5 MG/2.5 ML NEB.SOLN INH SCH ×4 (01:13→19:05)
[2016-04-16] MEDS: Levalbuterol 1.25MG/0.5ML NEB INH SCH ×4 (01:52→19:06)
[2016-04-16] MEDS: Heparin VIAL(*) 5000 UNITS/ML VIAL (FIVE THOUSAND) SUBCUT SCH ×3 (05:18→21:09)
[2016-04-16] MEDS: Clindamycin 600 MG IVPREMIX(* 600 MG/50 ML SDV IV SCH ×3 (05:18→20:00)
[2016-04-16] MEDS: methylPREDNISolone SOD 40 MG* 1 ML VIAL IV SCH ×3 (05:18→19:58)
--- NOTE | 2016-04-16 07:46 | PN ---
Progress Note - Progress Note Note: Pulm consult f/u note 04/16/16. Pt seen and examined at bedside. Pt reports feeling much improved today. Was able to sleep well last night. Hoping to go home today Active Medications Generic Name Dose Route Start Last Admin Trade Name Nirq PRN Reason Stop Dose Admin Acetaminophen 650 mg 04/09/16 18:58 04/10/16 23:47 Tylenol Tab* PO 650 mg Q4H PRN Administration FEVER Heparin Sodium (Porcine) 5,000 units 04/09/16 22:00 04/16/16 05:18 Heparin Vial(*) SUBCUT 5,000 units Q8HR [facility] Administration Heparin Sodium (Porcine) 5 ml 04/15/16 10:00 04/16/16 06:10 Heparin Flush Port (Ivad)* FLUSH 5 ml DAILY [facility] Administration Protocol Cefepime HCl 2 gm/ Sodium 50 mls @ 100 mls/hr 04/09/16 22:00 04/15/16 21:13 Chloride IVPB 100 mls/hr 1000,2200 [facility] Administration Clindamycin HCl/Dextrose 600 mg in 50 mls @ 100 mls/hr 04/16/16 05:00 05:18 Cleocin 600 Mg Ivpremix(*) Sdv IV 100 mls/hr 0500,1300,2100 [facility] Administration Ipratropium [place] 0.5 mg 04/09/16 12:06 04/11/16 13:09 Atrovent 0.5 Mg Neb.Sameera* INH 0.5 mg Q4H PRN Administration SOB/WHEEZING Ipratropium [place] 0.5 mg 04/12/16 19:00 04/16/16 06:21 Atrovent 0.5 Mg Neb.Sameera* INH 0.5 mg [id number] AWAKE [facility] Administration Levalbuterol HCl 2 puff 04/11/16 13:23 Xopenex Hfa Inhaler* INH Q4H PRN SHORTNESS OF BREATH Levalbuterol HCl 1.25 mg 04/13/16 01:00 04/16/16 06:22 Xopenex 1.25 Mg/0.5 Ml Neb.Sameera* INH 1.25 mg [id number] AWAKE [facility] Administration Melatonin 3 mg 04/14/16 22:18 04/15/16 21:26 Melatonin (Nf) PO 3 mg BEDTIME PRN Administration Sleep Protocol Methylprednisolone Sodium Succinate 40 mg 04/09/16 21:00 04/16/16 05:18 Solu-Medrol* IV 40 mg Q8H [facility] Administration Mometasone Furoate/Formoterol Fumar 2 puff 04/09/16 12:06 Dulera 100/5 Mdi* INH BID PRN SHORTNESS OF BREATH Montelukast Sodium 10 mg 04/09/16 21:00 04/15/16 21:14 Singulair Tab* PO 10 mg BEDTIME [facility] Administration Tamsulosin HCl 0.4 mg 04/10/16 09:00 04/15/16 11:48 Flomax Cap* PO 0.4 mg DAILY [facility] Administration Vital Signs Temp Pulse Resp BP Pulse Ox 98.1 F 60 16 158/86 98 04/16/16 05:22 04/16/16 06:22 04/16/16 06:22 04/16/16 05:22 04/16/16 06:22 en:sitting in chair, in NAD HEENT: PANCHO, no JVD, mucus membranes dry Resp: diffuse exp wheeze and rhonchi b/l, improved aeration CVS; s1 s2 nl Abd: soft obese NT + bs Ext: no LE edema Neuro: A+O x 3, nonfocal neurological exam Laboratory Results - last 24 hr 04/09/16 04/09/16 15:09 21:25 Lactic Acid 1.4 Troponin I 0.01 I/R: 75 yo M w T3N2 lung CA sp chemoRT currently in surveillance presenting with fevers, cough and worsening SOB. His CT shows progression and change in right upper lobe mass with increase in size and surrounding air space opacities that is either PNA (there are air bronchograms) or recurrent/progressive disease. Pt with acute COPD exacerbation , improving slowly, still has wheeze b/l, much improved today c/w current dose of solumedrol, no taper yet c/w bronchodilators, O2 supplementation Rpt CXR reviewed, mass lesion in RUL and hyperinflation, unchanged from prior CXR EKG reviewed- shows sinus tacycardia Pt was tachycardic last night, normal sinus this morning Pt to ambulate today He will need bronchoscopy when resp status is improved for transbronchial bx to evaluate for recurrence of malignancy, will schedule for next week Radiation pneumonitis is also possibility which should respond to steroids -cont solumedrol 40 mg IV q8 hrs, will change to 40mg q 12hrs today and prednisone 60mg at d/c and slow taper over 2 weeks -cont nebs -On cefepime, clinda, received atleast 1 week of broad spectrum abx for post obstructive PNA - Will hold Lisinopril-? drug induced bronchospasm -heparin sc DVT prophylaxis Anticipate d/c tomorrow if continues to improve today DNR
[2016-04-16] MEDS: Cefepime(*) 2 GM in NS 0.9% 50 ML* 50 ML IVPB SCH ×2 (08:55→21:09)
[2016-04-16] MEDS: Tamsulosin CAP* 0.4 MG PO SCH (08:55)
[2016-04-16] MEDS ORDERED: Zolpidem TAB* 5 MG PO PRN (21:07)
[2016-04-16] MEDS: Montelukast Sodium TAB* 10 MG PO SCH (21:09)
[2016-04-16] MEDS: CMC:Melatonin (NF) 3 MG TAB PO PRN (21:58)
[2016-04-17] MEDS: Levalbuterol 1.25MG/0.5ML NEB INH SCH ×2 (01:12→09:31)
[2016-04-17] MEDS: Ipratropium 0.5MG/2.5ML NEB* 0.5 MG/2.5 ML NEB.SOLN INH SCH ×2 (01:12→09:31)
[2016-04-17] MEDS: Clindamycin 600 MG IVPREMIX(* 600 MG/50 ML SDV IV SCH (05:11)
[2016-04-17] MEDS: Heparin VIAL(*) 5000 UNITS/ML VIAL (FIVE THOUSAND) SUBCUT SCH (05:11)
[2016-04-17 08:12] VITALS: BP 153/86
[2016-04-17] MEDS: Cefepime(*) 2 GM in NS 0.9% 50 ML* 50 ML IVPB SCH (09:31)
[2016-04-17] MEDS: methylPREDNISolone SOD 40 MG* 1 ML VIAL IV SCH (09:32)
[2016-04-17] MEDS: Tamsulosin CAP* 0.4 MG PO SCH (09:32)
--- NOTE | 2016-04-17 13:44 | PN ---
Progress Note - Progress Note Note: Pulm consult f/u note 04/17/16. Pt seen and examined at bedside. Pt reported improvement in breathing. Vital Signs Temp Pulse Resp BP Pulse Ox 97.4 F 69 16 153/86 94 04/17/16 08:06 04/17/16 08:06 04/17/16 08:06 04/17/16 08:06 04/17/16 08:06 en:sitting in chair, in NAD HEENT: PANCHO, no JVD, mucus membranes dry Resp: diffuse exp wheeze and rhonchi b/l, improved aeration CVS; s1 s2 nl Abd: soft obese NT + bs Ext: no LE edema Neuro: A+O x 3, nonfocal neurological exam Laboratory Results - last 24 hr 04/09/16 04/09/16 15:09 21:25 Lactic Acid 1.4 Troponin I 0.01 I/R: 75 yo M w T3N2 lung CA sp chemoRT currently in surveillance presenting with fevers, cough and worsening SOB. His CT shows progression and change in right upper lobe mass with increase in size and surrounding air space opacities that is either PNA (there are air bronchograms) or recurrent/progressive disease. Pt with acute COPD exacerbation , improving slowly, still has wheeze b/l, much improved today c/w bronchodilators, O2 supplementation Rpt CXR reviewed, mass lesion in RUL and hyperinflation, unchanged from prior CXR EKG reviewed- showed sinus tacycardia Pt to ambulate today He will need bronchoscopy when resp status is improved for transbronchial bx to evaluate for recurrence of malignancy, will schedule for next week Radiation pneumonitis is also possibility which should respond to steroids - prednisone 60mg at d/c and slow taper over 2 weeks -cont nebs -Received broad spectrum abx for post obstructive PNA - Lisinopril held-? drug induced bronchospasm -heparin sc DVT prophylaxis d/c today Will f/u in office in 1 week DNR
--- NOTE | 2016-04-17 21:41 | DS ---
DISCHARGE SUMMARY: DATE OF ADMISSION: 04/09/16 DATE OF DISCHARGE: 04/17/16 PRINCIPAL DIAGNOSES: Include: 1. Chronic obstructive pulmonary disease exacerbation. 2. 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 3. Postobstructive pneumonia. 4. History of depression. 5. History of hypertension. 6. History of an accelerated junctional rhythm. 7. History of diverticulitis. HISTORY OF PRESENT ILLNESS: Briefly, the patient was admitted through the emergency room for increa sed shortness of breath and was muñoz cultured and placed on 2 antibiotic therapies IV and seen by Dr. Bahena for his history of COPD and her input for his management as an inpatient. He slowly improve d over the course of the 9 days and had remained stable on his telemetry. Blood pressures have mariposa ined relatively stable and his glucose ranged somewhere in between 159 and 227 despite the added laith roids. He was placed on high dose steroids, Solu-Medrol and will be transitioned over to prednisone 60 mg daily for 14 additional days over a slow taper. He will need to see Dr. Bahena approximately next week for followup. In addition, we will continue him on clindamycin 600 mg 4 times a day time s 6 additional days to complete a 14-day course and he will also as previously scheduled follow up w melany Whelan and Dr. Camara next week as well. He will also need to go home on home oxygen as parvin gonzalez has required 4 L nasal cannula during his hospital stay. His cultures remained negative with norm al ann marie in sputum. He was negative for influenza A and B and negative blood cultures during his [place] [facility] stay. The chest x-ray on 04/15/16 as a followup to his postobstructive pneumonia said persis tent infiltrate in the right upper lobe consistent with atelectasis/infiltrate from a mass, hyperinf lated armas noted bilateral. On the day of his discharge, he remained afebrile and blood pressure was 153/86, pulse 68, respiratory rate 16, 02 sat 94% on 4 L nasal cannula. Clindamycin and prednis one was sent to his pharmacy by e-scribe to [facility]. [place] [id number]/[facility] #: [id number]
--- NOTE | 2016-04-30 11:21 | DS ---
DISCHARGE SUMMARY:* ADDENDUM: DISCHARGE MEDICATIONS: 1. DuoNeb nebulizer inhaled every 6 hours. 2. Singulair 10 mg p.o. at bedtime daily. 3. Symbicort 2 puffs inhaled twice daily as needed. 4. Atrovent 0.5 mg inhaled every 4 hours as needed. 5. Flomax 0.4 mg p.o. daily. 6. Lexapro 10 mg p.o. daily. 7. Tylenol 650 mg every 4 hours as needed for pain or fever. 8. Clindamycin 600 mg p.o. four times a day until complete. 9. Xopenex 1 puff metered dose inhaler inhaled every 4 hours as needed. 10. Melatonin 3 mg p.o. at bedtime as needed. 11. Prednisone 20 mg tablets, 60 mg p.o. every 24 hours on a 14-day taper. MATT [place] [id number]/[facility] #: [id number] [facility]
== END 2016-04-17 11:12 | disposition home health service (06) | DRG 190 ==
LOC: ED 05:09 → MEDTELE 11:56
PROVIDERS: ADMIT Internal Medicine Hematology & Oncology; ATTEND Internal Medicine Hematology & Oncology
DX: J44.0 Chronic obstructive pulmonary disease with (acute) lower respiratory infection (principal); J18.8 Other pneumonia, unspecified organism; J70.0 Acute pulmonary manifestations due to radiation; E22.2 Syndrome of inappropriate secretion of antidiuretic hormone; J90 Pleural effusion, not elsewhere classified; C34.11 Malignant neoplasm of upper lobe, right bronchus or lung; Z99.81 Dependence on supplemental oxygen; E87.1 Hypo-osmolality and hyponatremia; J44.1 Chronic obstructive pulmonary disease with (acute) exacerbation; R55 Syncope and collapse; I10 Essential (primary) hypertension; J45.909 Unspecified asthma, uncomplicated; F41.0 Panic disorder [episodic paroxysmal anxiety]; F32.9 Major depressive disorder, single episode, unspecified; F10.21 Alcohol dependence, in remission; B19.20 Unspecified viral hepatitis C without hepatic coma; R00.0 Tachycardia, unspecified; Z66 Do not resuscitate; E86.1 Hypovolemia; J98.8 Other specified respiratory disorders; Z88.0 Allergy status to penicillin; Z98.49 Cataract extraction status, unspecified eye; Z87.891 Personal history of nicotine dependence; Z92.21 Personal history of antineoplastic chemotherapy; Z82.49 Family history of ischemic heart disease and other diseases of the circulatory system; Z80.0 Family history of malignant neoplasm of digestive organs; Z80.3 Family history of malignant neoplasm of breast; Z80.8 Family history of malignant neoplasm of other organs or systems; Z92.3 Personal history of irradiation
CPT/HCPCS: 36415; 71010; 71020; 71275; 80048; 80053; 83605; 83735; 83880; 83930; 83935; 84300; 84484; 85025; 85379; 87040; 87070; 87205; 87502; 93005; 94640; 94760; 99222; 99232; 99233; 99239; 99284; A9270-GY; J0692; J0744; J1642; J1644; J2270; J2920; J2930; J3490; J7644; Q9967

== ENCOUNTER 2016-04-29 08:22 | Inpatient (IN) | payer MEDICARE, MEDICAID ==
[2016-04-29] MEDS ORDERED: methylPREDNISolone 125 MG* 2 ML VIAL IV ONE (08:44)
[2016-04-29] MEDS ORDERED: Albuterol/Ipratropium NEB.SOL* Albuterol 2.5 MG/Ipratropium 0.5 MG 3 ML INH ONE (08:44)
[2016-04-29] MEDS: NS 0.9% 1000 ML* 3,000 ML IV ONE ×2 (09:25→10:42)
[2016-04-29 09:31] LABS: FIO2 100
[2016-04-29 09:36] LABS: PCO2 Arterial 44 mmHg (35-45)
--- NOTE | 2016-04-29 09:37 | RAD ---
HISTORY: Shortness of breath COMPARISONS: April 15, 2016 VIEWS: 2: Frontal and lateral views of the chest. FINDINGS: CARDIOMEDIASTINAL SILHOUETTE: The cardiomediastinal silhouette is normal. ANGIE: The angie are normal. PLEURA: The costophrenic angles are sharp. No pleural abnormalities are noted. LUNG PARENCHYMA: There is progressive confluent alveolar opacification of the right upper lobe, with developing alveolar opacification of the right middle lobe. ABDOMEN: The upper abdomen is clear. There is no subphrenic gas. BONES AND SOFT TISSUES: No bone or soft tissue abnormalities are noted. OTHER: A left-sided chest port is noted IMPRESSION: PROGRESSIVE RIGHT UPPER AND LOWER LUNG CONSOLIDATION. RECOMMEND FOLLOW-UP UNTIL RESOLUTION TO EXCLUDE UNDERLYING PULMONARY PARENCHYMAL PATHOLOGY
[2016-04-29 09:38] LABS: Hematocrit 35 % (42-52); Hemoglobin 11.2 g/dl (14.0-18.0); Mean Corpuscular HGB Conc 33 g/dl (31-36); Mean Corpuscular Hemoglobin 27 pg (27-31); Mean Corpuscular Volume 83 fL (80-94); Mean Platelet Volume 7 um3 (7.4-10.4); Red Blood Count 4.14 10^6/ul (4.0-5.4); Red Cell Distribution Width 23 % (10.5-15); White Blood Count 11.2 10^3/ul (3.5-10.8)
[2016-04-29 09:39] LABS: Add Diff/Slide Review? Slide Review Added; Comments Flag Yes
[2016-04-29 09:58] LABS: BUN/Creatinine Ratio 13.4 (8-20); C Reactive Protein 70.23 mg/L (< 5.00); Calcium 8.5 mg/dL (8.6-10.3); EGFR African American 118.4 (>60); EGFR Non-African American 92.1 (>60); Globulin 2.9 g/dL (2-4); Potassium 3.9 mmol/L (3.5-5.0); Total Bilirubin 1.4 mg/dL (0.2-1.0); Total Protein 5.9 g/dL (6.4-8.9)
[2016-04-29 09:59] LABS: Troponin I 0.01 ng/mL (<0.04)
[2016-04-29] MEDS ORDERED: Cefepime(*) 2 GM in NS 0.9% 50 ML* 50 ML IVPB ONE (10:03)
[2016-04-29] MEDS ORDERED: Levofloxacin 750 MG IVPREMIX(* 750 MG/150 ML BAG IVPB ONE (10:04)
[2016-04-29 10:57] LABS: Urine Bilirubin Negative (Negative); Urine Glucose Negative (Negative); Urine Nitrite Negative (Negative)
[2016-04-29] MEDS ORDERED: Iohexol 350* (CONTRAST) 500 ML MDV IV ONE (11:16)
--- NOTE | 2016-04-29 12:15 | RAD ---
HISTORY: Shortness of breath COMPARISONS: April 09, 2016 TECHNIQUE: Multiple contiguous axial CT scans of the chest were obtained after the administration of nonionic intravenous contrast, timed to the pulmonary arterial phase of contrast enhancement.. Coronal and sagittal multiplanar reformations are also submitted for review. FINDINGS: NECK AND THYROID: The lower neck and thyroid are unremarkable. CHEST WALL: There is no lower cervical, axillary, or supraclavicular lymphadenopathy by size criteria. A left-sided chest port is noted HEART AND PERICARDIUM: The heart is unremarkable. AORTA AND PULMONARY VASCULATURE: There is no pulmonary arterial filling defect to suggest pulmonary embolism. There is no linear filling defect within the aorta to suggest aortic dissection. MEDIASTINUM: There is persistent mediastinal lymphadenopathy. ANGIE: There is persistent right hilar lymphadenopathy. AIRWAY AND ESOPHAGUS: The airway is unremarkable, without endobronchial filling defect. The esophagus is grossly normal. LUNG PARENCHYMA: There is progressive consolidation of the right upper lobe with persistent masslike opacification of the right upper lobe in the suprahilar region. PLEURA: There is a moderate right pleural effusion, progressed from the previous examination. UPPER ABDOMEN: There is a stable cystic lesion of the liver. BONES AND SOFT TISSUES: Degenerative changes are noted of the spine OTHER: None. IMPRESSION: 1. NO PULMONARY ARTERIAL FILLING DEFECT TO SUGGEST PULMONARY EMBOLISM. 2. STABLE RIGHT UPPER LOBE MASS WITH ASSOCIATED LYMPHADENOPATHY, CONSISTENT WITH THE HISTORY OF LUNG CARCINOMA. 3. PROGRESSIVE CONSOLIDATION OF THE RIGHT UPPER LOBE. 4. MODERATE RIGHT PLEURAL EFFUSION, PROGRESSED FROM THE PREVIOUS EXAMINATION
--- NOTE | 2016-04-29 13:38 | RAD ---
INDICATION: Lung carcinoma. Pneumonia. COMPARISON: Chest x-ray April 29, 2016 TECHNIQUE: An AP portable view obtained at 1310 hours is submitted. FINDINGS: Bones/Soft Tissues: There are no acute bony findings. There is a left-sided PowerPort catheter Cardiomediastinal: This correct silhouette is unchanged. There is a right hilar mass. LUNGS: The left lung is grossly clear. Extensive infiltrative change is present in the right upper lobe with volume loss. Milder changes are present the right lower lobe. Pleura: Small right-sided effusion. Other: None IMPRESSION: EXTENSIVE RIGHT-SIDED INFILTRATIVE CHANGE WITH MILD VOLUME LOSS RIGHT UPPER LOBE AND RIGHT HILAR MASS. NO APPRECIABLE INTERVAL CHANGE.
[2016-04-29] MEDS: Albuterol/Ipratropium NEB.SOL* Albuterol 2.5 MG/Ipratropium 0.5 MG 3 ML INH SCH ×2 (14:29→19:16)
[2016-04-29] MEDS: Meropenem 1 GM PREMIX(*) 1 GM/50 ML BAG IV SCH ×2 (14:42→21:39)
[2016-04-29] MEDS: Enoxaparin(*) 40 MG/0.4 ML SYR SUBCUT SCH (14:42)
--- NOTE | 2016-04-29 17:09 | ED ---
Bhavana Glynn Matthew, scribed for Joshua Cody MD on 04/29/16 at 0903 . Shortness of Breath - HPI Summary HPI Summary: A 75 y/o male presents to the ED with constant, gradually worsening SOB since . The patient states that he was recently hospitalized for pneumonia and released on 04/17. Associated symptoms include wheezing, pedal edema, right foot pain, and right flank pain. The patient denies chest pain, fever, and chills. He uses a nebulizer 4-5 times a day w/o relief. Laying down makes the SOB worse. He is not on home oxygen. No Hx of diabetes, CHF, CVA, or VA. He has a Hx of lung CA and COPD. He has finished both of his chemo and radiation therapy. - History of Current Complaint Chief Complaint: EDRespiratoryDistress Hx Obtained From: Patient Onset/Duration: Gradual Onset, Lasting Days, Still Present Timing: Constant Current Severity: Moderate Dyspnea At: Rest Aggrevating Factors: Recumbent Position Associated Signs & Symptoms: Wheezing, Edema - Pedal - Allergy/Home Medications Allergies/Adverse Reactions: Allergies Allergy/AdvReac Type Severity Reaction Status Date / Time Penicillins Allergy Intermediate Hives Verified 02/09/16 11:29 PMH/Surg Hx/FS Hx/Imm Hx Endocrine/Hematology History: Denies: Hx Diabetes, Hx Thyroid Disease, Hx Anemia, Hx Unexplained Bleeding Cardiovascular History: Reports: Hx Hypertension - meds used Denies: Hx Aneurysm, Hx Angina, Hx Angioplasty, Hx Auto Implanted Cardiovert Defib, Hx Cardiac Arrest, Hx Cardiomegaly, Hx Congenital Heart Disease, Hx Congestive Heart Failure, Hx Coronary Artery Disease, Hx Deep Vein Thrombosis, Hx Embolism, Hx Hypercholesterolemia, Hx Hypotension, Hx Pacemaker/ICD, Hx Peripheral Vascular Disease, Hx Rheumatic Fever, Hx Syncope, Hx Valvular Heart Disease, Other Cardiovascular Problems/Disorders Respiratory History: Reports: Hx Asthma, Hx Chronic Obstructive Pulmonary Disease (COPD) Denies: Hx Chronic Bronchitis, Hx Cystic Fibrosis, Hx Lung Cancer, Hx Pleural Effusion, Hx Pneumonia, Hx Pulmonary Edema, Hx Pulmonary Embolism, Hx Seasonal Allergies, Hx Sleep Apnea, Other Respiratory Problems/Disorders GI History: Reports: Hx Hiatal Hernia Denies: Hx Cirrhosis, Hx Gall Bladder Disease, Hx Obstructive Bowel, Hx Ileostomy, Hx Ulcer History: Denies: Hx Dialysis, Hx Kidney Stones, Hx Renal Disease Musculoskeletal History: Denies: Hx Arthritis, Hx Osteoporosis Sensory History: Reports: Hx Cataracts - surgery 2013, Hx Contacts or Glasses, Hx Vision Problem Denies: Hx Hearing Aid, Hx Hearing Problem Opthamlomology History: Reports: Hx Cataracts - surgery 2013, Hx Contacts or Glasses, Hx Vision Problem Neurological History: Denies: Hx Dementia, Hx Developmental Delay, Hx Headaches, Hx Migraine, Hx Nerve Disease, Hx Seizures, Hx Transient Ischemic Attacks (TIA) Psychiatric History: Reports: Hx Anxiety, Hx Depression, Hx Panic Disorder - ANXIETY, Hx Substance Abuse - PREVIOUS DRINKER - Cancer History Cancer Type, Location and Year: lung CA Hx Chemotherapy: No - Surgical History Surgery Procedure, Year, and Place: hernia x3, lung bx 2014 Hx Anesthesia Reactions: No Infectious Disease History: No Infectious Disease History: Reports: Hx Hepatitis Denies: Hx Human Immunodeficiency Virus (HIV), Hx of Known/Suspected MRSA, Hx Tuberculosis, History Other Infectious Disease, Traveled Outside the [place] in Last 30 Days - Family History Known Family History: Positive: Other - Cancer - Social History Alcohol Use: None Alcohol Amount: 2 beers, used to be an alcoholic Substance Use Type: Reports: None Substance Use Comment - Amount & Last Used: Pt unable to recall last use, but stated it was a few months ago. Hx Tobacco Use: Yes Smoking Status (MU): Former Smoker Type: Cigarettes Have You Smoked in the Last Year: Yes - quit almost a year ago as of 07/03/15 Review of Systems Constitutional: Negative Negative: Fever, Chills Eyes: Negative ENT: Negative Cardiovascular: Negative Negative: Chest Pain Positive: Shortness Of Breath, Other - Wheezing Gastrointestinal: Negative Genitourinary: Negative Positive: Myalgia - Right flank pain, right foot pain Skin: Negative Neurological: Negative Psychological: Normal All Other Systems Reviewed And Are Negative: Yes Physical Exam - Summary Physical Exam Summary: The patient is well-nourished in no acute distress and in no acute pain. The skin is warm and dry and skin color reflects adequate perfusion. HEENT: The head is normocephalic and atraumatic. The pupils are equal and reactive. The conjunctivae are clear and without drainage. Nares are patent and without drainage. Mouth reveals moist mucous membranes and the throat is without erythema and exudate. The external ears are intact. The ear canals are patent and without drainage. The tympanic membranes are intact. Neck is supple with full range of motion and non-tender. There are no carotid bruits. There is no neck vein distension. Respiratory: Chest is non-tender. The patient has diffuse rales and wheezing throughout the lungs. Cardiovascular: Hear is regular rate and rhythm. There is no murmur or rub auscultated. There is no peripheral edema and pulses are symmetrical and equal. He has good distal pulses. Abdomen: The abdomen is soft and non-tender. There are normal bowel sounds heard in all four quadrants and there is no organomegaly palpated. Musculoskeletal: There is no back pain noted. Extremities are non-tender with full range of motion. Capillary refill is 2 seconds. There is no calf tenderness elicited. He has ankle edema. Neurological: Patient is alert and oriented to person, place and time. The patient has symmetrical motor strength in all four extremities. Cranial nerves are grossly intact. Deep tendon reflexes are symmetrical and equal in all four extremities. Psychiatric: The patient has an appropriate affect and does not exhibit any anxiety or depression. Triage Information Reviewed: Yes Vital Signs On Initial Exam: Initial Vitals Temp Pulse Resp BP Pulse Ox 98.6 F 157 26 134/77 100 04/29/16 08:24 04/29/16 08:24 04/29/16 08:24 04/29/16 08:24 04/29/16 08:24 Vital Signs Reviewed: Yes Diagnostics - Vital Signs Vital Signs Temp Pulse Resp BP Pulse Ox 04/29/16 08:24 98.6 F 157 26 134/77 100 - Laboratory Lab Results: Lab Results 04/29/16 04/29/16 04/29/16 Range/Units 09:16 09:16 09:16 WBC 11.2 H (3.5-10.8) 10^3/ul RBC 4.14 (4.0-5.4) 10^6/ul Hgb 11.2 L (14.0-18.0) g/dl Hct 35 L (42-52) % MCV 83 (80-94) fL MCH 27 (27-31) pg MCHC 33 (31-36) g/dl RDW 23 H (10.5-15) % Plt Count 136 L (150-450) 10^3/ul MPV 7 L (7.4-10.4) um3 Neut % (Auto) 82.7 (38-83) % Lymph % (Auto) 7.7 L (25-47) % [place] % (Auto) 7.1 (1-9) % Eos % (Auto) 1.4 (0-6) % Baso % (Auto) 1.1 (0-2) % Absolute Neuts (auto) 9.3 H (1.5-7.7) 10^3/ul Absolute Lymphs (auto) 0.9 L (1.0-4.8) 10^3/ul Absolute Monos (auto) 0.8 (0-0.8) 10^3/ul Absolute Eos (auto) 0.2 (0-0.6) 10^3/ul Absolute Basos (auto) 0.1 (0-0.2) 10^3/ul Absolute Nucleated RBC 0 10^3/ul Nucleated RBC % 0 INR (Anticoag Therapy) (0.89-1.11) D-Dimer, Quantitative (Less Than 230) ng/mL Patient Temperature ABG pH (7.35-7.45) ABG pCO2 (35-45) mmHg ABG pO2 (80-100) mmHg ABG HCO3 (19-31) mmol/L ABG O2 Saturation (95-98) % ABG Base Excess (-2.0-2.0) Respiration Rate O2 Delivery Device Ventilator Type Vent Mode FiO2 Inspiratory Time PEEP Pressure Support Pressure Control EPAP IPAP BiPAP Sodium 133 (133-145) mmol/L Potassium 3.9 (3.5-5.0) mmol/L Chloride 97 L (101-111) mmol/L Carbon Dioxide 30 (22-32) mmol/L Anion Gap 6 (2-11) mmol/L BUN 11 (6-24) mg/dL Creatinine 0.82 (0.67-1.17) mg/dL Est GFR ( Amer) 118.4 (>60) Est GFR (Non-Af Amer) 92.1 (>60) BUN/Creatinine Ratio 13.4 (8-20) Glucose 141 H (70-100) mg/dL Lactic Acid 1.4 (0.5-2.0) mmol/L Calcium 8.5 L (8.6-10.3) mg/dL Total Bilirubin 1.40 H (0.2-1.0) mg/dL AST 25 (13-39) U/L ALT 38 (7-52) U/L Alkaline Phosphatase 41 (34-104) U/L Total Creatine Kinase 95 (10-223) U/L Troponin I 0.01 (<0.04) ng/mL C-Reactive Protein 70.23 H (< 5.00) mg/L B-Natriuretic Peptide ( - 100) pg/mL Total Protein 5.9 L (6.4-8.9) g/dL Albumin 3.0 L (3.2-5.2) g/dL Globulin 2.9 (2-4) g/dL Albumin/Globulin Ratio 1.0 (1-3) Urine Color Urine Appearance Urine pH (5-9) Ur Specific [place] (1.010-1.030) Urine Protein (Negative) Urine Ketones (Negative) Urine Blood (Negative) Urine Nitrate (Negative) Urine Bilirubin (Negative) Urine Urobilinogen (Negative) Ur Leukocyte Esterase (Negative) Urine Glucose (Negative) Urine Ascorbic Acid (Negative) 04/29/16 04/29/16 04/29/16 Range/Units 09:16 09:16 09:20 WBC (3.5-10.8) 10^3/ul RBC (4.0-5.4) 10^6/ul Hgb (14.0-18.0) g/dl Hct (42-52) % MCV (80-94) fL MCH (27-31) pg MCHC (31-36) g/dl RDW (10.5-15) % Plt Count (150-450) 10^3/ul MPV (7.4-10.4) um3 Neut % (Auto) (38-83) % Lymph % (Auto) (25-47) % [place] % (Auto) (1-9) % Eos % (Auto) (0-6) % Baso % (Auto) (0-2) % Absolute Neuts (auto) (1.5-7.7) 10^3/ul Absolute Lymphs (auto) (1.0-4.8) 10^3/ul Absolute Monos (auto) (0-0.8) 10^3/ul Absolute Eos (auto) (0-0.6) 10^3/ul Absolute Basos (auto) (0-0.2) 10^3/ul Absolute Nucleated RBC 10^3/ul Nucleated RBC % INR (Anticoag Therapy) 1.27 H (0.89-1.11) D-Dimer, Quantitative > 1050 H (Less Than 230) ng/mL Patient Temperature Not Reportable ABG pH 7.45 (7.35-7.45) ABG pCO2 44 (35-45) mmHg ABG pO2 178 H (80-100) mmHg ABG HCO3 29.5 (19-31) mmol/L ABG O2 Saturation 99.8 H (95-98) % ABG Base Excess 5.9 H (-2.0-2.0) Respiration Rate Not Reportable O2 Delivery Device non-rebreather Ventilator Type Not Reportable Vent Mode Not Reportable FiO2 100 Inspiratory Time Not Reportable PEEP Not Reportable Pressure Support Not Reportable Pressure Control Not Reportable EPAP Not Reportable IPAP Not Reportable BiPAP Not Reportable Sodium (133-145) mmol/L Potassium (3.5-5.0) mmol/L Chloride (101-111) mmol/L Carbon Dioxide (22-32) mmol/L Anion Gap (2-11) mmol/L BUN (6-24) mg/dL Creatinine (0.67-1.17) mg/dL Est GFR ( Amer) (>60) Est GFR (Non-Af Amer) (>60) BUN/Creatinine Ratio (8-20) Glucose (70-100) mg/dL Lactic Acid (0.5-2.0) mmol/L Calcium (8.6-10.3) mg/dL Total Bilirubin (0.2-1.0) mg/dL AST (13-39) U/L ALT (7-52) U/L Alkaline Phosphatase (34-104) U/L Total Creatine Kinase (10-223) U/L Troponin I (<0.04) ng/mL C-Reactive Protein (< 5.00) mg/L B-Natriuretic Peptide 18 ( - 100) pg/mL Total Protein (6.4-8.9) g/dL Albumin (3.2-5.2) g/dL Globulin (2-4) g/dL Albumin/Globulin Ratio (1-3) Urine Color Urine Appearance Urine pH (5-9) Ur Specific [place] (1.010-1.030) Urine Protein (Negative) Urine Ketones (Negative) Urine Blood (Negative) Urine Nitrate (Negative) Urine Bilirubin (Negative) Urine Urobilinogen (Negative) Ur Leukocyte Esterase (Negative) Urine Glucose (Negative) Urine Ascorbic Acid (Negative) 04/29/16 Range/Units 10:45 WBC (3.5-10.8) 10^3/ul RBC (4.0-5.4) 10^6/ul Hgb (14.0-18.0) g/dl Hct (42-52) % MCV (80-94) fL MCH (27-31) pg MCHC (31-36) g/dl RDW (10.5-15) % Plt Count (150-450) 10^3/ul MPV (7.4-10.4) um3 Neut % (Auto) (38-83) % Lymph % (Auto) (25-47) % [place] % (Auto) (1-9) % Eos % (Auto) (0-6) % Baso % (Auto) (0-2) % Absolute Neuts (auto) (1.5-7.7) 10^3/ul Absolute Lymphs (auto) (1.0-4.8) 10^3/ul Absolute Monos (auto) (0-0.8) 10^3/ul Absolute Eos (auto) (0-0.6) 10^3/ul Absolute Basos (auto) (0-0.2) 10^3/ul Absolute Nucleated RBC 10^3/ul Nucleated RBC % INR (Anticoag Therapy) (0.89-1.11) D-Dimer, Quantitative (Less Than 230) ng/mL Patient Temperature ABG pH (7.35-7.45) ABG pCO2 (35-45) mmHg ABG pO2 (80-100) mmHg ABG HCO3 (19-31) mmol/L ABG O2 Saturation (95-98) % ABG Base Excess (-2.0-2.0) Respiration Rate O2 Delivery Device Ventilator Type Vent Mode FiO2 Inspiratory Time PEEP Pressure Support Pressure Control EPAP IPAP BiPAP Sodium (133-145) mmol/L Potassium (3.5-5.0) mmol/L Chloride (101-111) mmol/L Carbon Dioxide (22-32) mmol/L Anion Gap (2-11) mmol/L BUN (6-24) mg/dL Creatinine (0.67-1.17) mg/dL Est GFR ( Amer) (>60) Est GFR (Non-Af Amer) (>60) BUN/Creatinine Ratio (8-20) Glucose (70-100) mg/dL Lactic Acid (0.5-2.0) mmol/L Calcium (8.6-10.3) mg/dL Total Bilirubin (0.2-1.0) mg/dL AST (13-39) U/L ALT (7-52) U/L Alkaline Phosphatase (34-104) U/L Total Creatine Kinase (10-223) U/L Troponin I (<0.04) ng/mL C-Reactive Protein (< 5.00) mg/L B-Natriuretic Peptide ( - 100) pg/mL Total Protein (6.4-8.9) g/dL Albumin (3.2-5.2) g/dL Globulin (2-4) g/dL Albumin/Globulin Ratio (1-3) Urine Color Yellow Urine Appearance Clear Urine pH 7.0 (5-9) Ur Specific [place] 1.013 (1.010-1.030) Urine Protein Negative (Negative) Urine Ketones Negative (Negative) Urine Blood Negative (Negative) Urine Nitrate Negative (Negative) Urine Bilirubin Negative (Negative) Urine Urobilinogen Negative (Negative) Ur Leukocyte Esterase Negative (Negative) Urine Glucose Negative (Negative) Urine Ascorbic Acid * H (Negative) Result Diagrams: 04/29/16 09:16 04/29/16 09:16 Lab Statement: Any lab studies that have been ordered have been reviewed, and results considered in the medical decision making process. - Radiology CXR Xray Interpretation: Positive (See Comments) - IMPRESSION: PROGRESSIVE RIGHT UPPER AND LOWER LUNG CONSOLIDATION. RECOMMEND FOLLOW-UP UNTIL RESOLUTION TO EXCLUDE UNDERLYING PULMONARY PARENCHYMAL PATHOLOGY Radiology Interpretation Completed By: Radiologist - EKG 08:18 Cardiac Rate: Tachycardia - 122 bpm EKG Rhythm: Sinus Tachycardia EKG Interpretation: Normal [place] Course/Dx - Course Assessment/Plan: A 75 y/o male presents to the ED with constant, gradually worsening SOB since 04/17. Associated symptoms include wheezing, pedal edema, right foot pain, and right flank pain. The patient denies chest pain, fever, and chills. Labs were reviewed. CXR shows progressive right upper and lower lung consolidation. EKG shows sinus tachycardia at 122bpm. Discussed the case with Dr. Garcia group and one of their providers will see the patient. Dr. Mijares will admit the patient into his services. - Diagnoses Differential Diagnosis/HQI/PQRI: Positive: Airway Obstruction, Bronchitis, CHF, COPD Exacerbation, Pneumonia, Other - lung mass, Provider Diagnoses: Acute dyspnea, Lung mass, Pneumonia, COPD exacerbation - Physician Notifications Discussed Care of Patient With: Dr. Escobedo (Oncology) at 10:19 -- Notified of patient's history and someone will form the group will see the patient. Dr. Mijares (ICU) at 10:45 -- Notified of patient's history and will admit the patient into his services. Discharge - Discharge Plan Condition: Stable Disposition: ADMITTED TO [facility] documentation as recorded by the Bhavana parikh Matthew accurately reflects the service I personally performed and the decisions made by , Joshua Cody MD.
[2016-04-29] MEDS: Citalopram TAB* 20 MG PO SCH (20:18)
[2016-04-29] MEDS: Famotidine TAB* 20 MG PO SCH (20:18)
--- NOTE | 2016-04-29 20:24 | HP ---
ADMISSION HISTORY AND PHYSICAL: DATE OF ADMISSION: 04/29/16 REASON FOR ADMISSION: Increasing shortness of breath. HISTORY OF PRESENT ILLNESS: This patient is a 75-year-old black male with a history of lung cancer (adeno CA) first diagnosed in June of 2015, who received 6 weeks of chemotherapy and radiation therapy. He was admitted to [facility] in early April of this year for a pneumonia and was discharged, 04/17/16. Since discharge, the patient claims he has continued to feel poorly with a chronic nonproductive cough and shortness of breath. He came to the emergency department today with those complaints and a chest x-ray showed a right upper lobe infiltrate - the patient required high-flow, humidified nasal O2 (Vapotherm ), and was admitted to the ICU with the diagnosis of community-acquired pneumonia and acute, hypoxic respiratory failure. The patient denies fever, chills, chest pain, or purulent sputum production. PAST MEDICAL HISTORY: Significant for COPD, BPH, and anxiety disorder. OUTPATIENT MEDICATIONS: 1. Prednisone 60 mg p.o. daily. 2. Lexapro 10 mg p.o. daily. 3. Flomax 0.4 mg p.o. daily. 4. Singulair 10 mg p.o. daily. 5. Atrovent 0.5 mg by inhaler q.4 hours p.r.n. 6. Levalbuterol inhaler 2 puffs q.4 hours p.r.n. 7. Clindamycin 600 mg p.o. 4 times a day. 8. Symbicort 80/4.5 two puffs b.i.d. p.r.n. ALLERGIES: The patient is allergic to PENICILLIN, which produces urticaria. SOCIAL HISTORY: The patient is and lives with his . Has a long history of smoking, but quit 1 year ago. Denies alcohol or illicit drug abuse. PHYSICAL EXAMINATION GENERAL: The patient appeared to be breathing comfortably on high-flow humidified nasal O2 (Vapotherm). VITAL SIGNS: Temperature 98.6, blood pressure 130/78, pulse 114 and regular, respirations 24 and nonlabored, O2 sat 100% on stated O2 delivery system. HEENT: No apparent abnormalities. LUNGS: Breath sounds distant, but occasional crackles at the right apex posteriorly. CARDIAC: There are no murmurs, rubs, or gallops. ABDOMEN: Soft and nontender. EXTREMITIES: Warm, not cyanotic, and not edematous. ADMISSION LABORATORY DATA: White count was 11.2, hemoglobin 11.2, hematocrit 35, platelets 136,000. Electrolytes were normal. Albumin was slightly reduced at 3. Total bilirubin was slightly elevated at 1.4. Liver enzymes were normal. Glucose was 141. BUN was 11 and creatinine 0.82. DIAGNOSTIC STUDIES: Chest x-ray shows a consolidation in the right upper lobe with volume loss. CT scan shows a mass in the right upper lobe with a moderate pleural effusion. There is no evidence of pulmonary emboli on CTA. Electrocardiogram shows sinus tachycardia with right atrial enlargement. IMPRESSION: The patient has a probable postobstructive pneumonia in the right upper lobe, associated with hypoxic respiratory failure. The prognosis is poor for resolution of this process, since patient has already had chemoRx and RadioRx. MANAGEMENT PLAN: We will start antibiotic coverage with meropenem (given the PENICILLIN allergy, meropenem provides the best single agent broad-spectrum coverage). Will also taper nasal O2 delivery as tolerated. TIME SPENT: Total critical care time spent with this patient 60 minutes. [id number]/[facility] #: [id number] [facility] HOSPITALMignon
[2016-04-30] MEDS: Albuterol/Ipratropium NEB.SOL* Albuterol 2.5 MG/Ipratropium 0.5 MG 3 ML INH SCH ×4 (01:52→19:48)
[2016-04-30 05:29] LABS: Hematocrit 31 % (42-52); Hemoglobin 9.9 g/dl (14.0-18.0); Mean Corpuscular HGB Conc 32 g/dl (31-36); Mean Corpuscular Hemoglobin 27 pg (27-31); Mean Corpuscular Volume 84 fL (80-94); Mean Platelet Volume 7 um3 (7.4-10.4); Red Blood Count 3.65 10^6/ul (4.0-5.4); Red Cell Distribution Width 23 % (10.5-15); White Blood Count 12.5 10^3/ul (3.5-10.8)
[2016-04-30 05:30] LABS: Comments Flag Yes
[2016-04-30 05:44] LABS: Albumin 2.7 g/dL (3.2-5.2); BUN/Creatinine Ratio 20.5 (8-20); Calcium 8.2 mg/dL (8.6-10.3); EGFR African American 125.5 (>60); EGFR Non-African American 97.6 (>60); Globulin 2.8 g/dL (2-4); Potassium 4.2 mmol/L (3.5-5.0); Total Bilirubin 0.8 mg/dL (0.2-1.0); Total Protein 5.5 g/dL (6.4-8.9)
[2016-04-30] MEDS: Meropenem 1 GM PREMIX(*) 1 GM/50 ML BAG IV SCH ×3 (05:58→22:04)
[2016-04-30] MEDS ORDERED: predniSONE TAB* 20 MG PO SCH (09:00)
[2016-04-30] MEDS: Famotidine TAB* 20 MG PO SCH ×2 (09:21→22:02)
[2016-04-30] MEDS: Citalopram TAB* 20 MG PO SCH (09:21)
--- NOTE | 2016-04-30 10:08 | PN ---
Critical Care Services: Had a restful evening. Cough persists this AM, but patient has no new complaints. Vital Signs: Temp Pulse Resp BP SpO2 FiO2 97.7 F 81 18 118/86 98 35 Physical Exam: Gen:Up in bed and breathing comfortably Lungs: wheezing (insp and exp) at right apex anteriorly. Extremities:Warm. No cyanosis or edema. Fluid Balance (Past 24 Hours): 04/30/16 06:59 Intake Total 2108 Output Total 1900 Balance 208 Weight 205 lb Intake: IV Fluids 158 NS KVO 158 IVPB 110 NS KVO 110 Oral 1840 Output: Urine 1900 Labs: Laboratory Results - last 24 hr 04/30/16 04/30/16 05:20 05:21 WBC 12.5 RBC 3.65 L Hgb 9.9 L Hct 31 L MCV 84 MCH 27 MCHC 32 RDW 23 H Plt Count 123 MPV 7 L Sodium 132 Potassium 4.2 Chloride 99 L Carbon Dioxide 26 Anion Gap 7 BUN 16 Creatinine 0.78 Glucose 207 Calcium 8.2 L Total Bilirubin 0.80 AST 20 ALT 35 Alkaline Phosphatase 37 Total Protein 5.5 L Albumin 2.7 Globulin 2.8 Albumin/Globulin Ratio 1.0 NOTE: Leukocytosis may be from steroids. Studies: Sputum gram stain - Nondiagnostic. Sputum culture pending. Nutrition: Regular diet Impression: Patient may not have an active pneumonia, but may have chronic inflammatory changes in RUL due to airway obstruction. Also has hyperglycemia, which could be partly due to steroid dose Plan: Continue IV antibiotic for now, but de-escalate if sputum and blood cultures negative. Will reduce prednisone dose and change diet to mitigate the hyperglycemia.
[2016-04-30] MEDS: Enoxaparin(*) 40 MG/0.4 ML SYR SUBCUT SCH (14:28)
[2016-05-01] MEDS: Albuterol/Ipratropium NEB.SOL* Albuterol 2.5 MG/Ipratropium 0.5 MG 3 ML INH SCH ×3 (01:40→20:13)
[2016-05-01] MEDS: Meropenem 1 GM PREMIX(*) 1 GM/50 ML BAG IV SCH (05:44)
[2016-05-01 05:49] LABS: Hematocrit 30 % (42-52); Hemoglobin 9.8 g/dl (14.0-18.0); Mean Corpuscular HGB Conc 33 g/dl (31-36); Mean Corpuscular Hemoglobin 28 pg (27-31); Mean Corpuscular Volume 83 fL (80-94); Mean Platelet Volume 7 um3 (7.4-10.4); Red Blood Count 3.57 10^6/ul (4.0-5.4); White Blood Count 12.6 10^3/ul (3.5-10.8)
[2016-05-01 05:55] LABS: Comments Flag Yes; Red Cell Distribution Width 23 % (10.5-15)
[2016-05-01] MEDS: predniSONE TAB* 20 MG PO SCH (07:57)
[2016-05-01] MEDS: Citalopram TAB* 20 MG PO SCH (07:57)
[2016-05-01] MEDS: Famotidine TAB* 20 MG PO SCH ×2 (07:57→22:27)
[2016-05-01] MEDS ORDERED: Cefepime(*) 2 GM in NS 0.9% 50 ML* 50 ML IVPB SCH (10:00)
[2016-05-01] MEDS: Albuterol/Ipratropium NEB.SOL* Albuterol 2.5 MG/Ipratropium 0.5 MG 3 ML INH PRN ×2 (10:21→15:20)
--- NOTE | 2016-05-01 10:54 | PN ---
Progress Note - Progress Note SOAP: Subjective: reports that he feels much better today than admission, though is clearly still having difficulty breathing. Objective: [] Vital Signs Temp Pulse Resp BP Pulse Ox 98.1 F 100 20 132/65 96 05/01/16 07:46 05/01/16 10:22 05/01/16 10:22 05/01/16 07:46 05/01/16 10:22 tachypneic, breathing at 26 bpm insp and exp wheezing tachycardic soft nt +bs no le edema A+O x 3, nonfocal neurological exam Laboratory Results - last 24 hr 05/01/16 05:28 WBC 12.6 H RBC 3.57 L Hgb 9.8 L Hct 30 L MCV 83 MCH 28 MCHC 33 RDW 23 H Plt Count 157 MPV 7 L Neut % (Auto) 87.3 H Lymph % (Auto) 5.6 L [place] % (Auto) 6.7 Eos % (Auto) 0.3 Baso % (Auto) 0.1 Absolute Neuts (auto) 11.0 H Absolute Lymphs (auto) 0.7 L Absolute Monos (auto) 0.8 Absolute Eos (auto) 0 Absolute Basos (auto) 0 Absolute Nucleated RBC 0 Nucleated RBC % 0 Assessment: 75 yo M w stage III adenocarcinoma of the lung sp cis/etoposide/RT readmitted with respiratory failure after recent hospitalization for postobstructive PNA. In discussing with Dr. Bahena, she feels that this likely represents an endobronchial lesion with resultant obstruction. He is clearly progressing. I have discussed this with Baldomero at length. He has a marginal performance status mainly limited by his respiratory distress. We discussed trying further palliative chemotherapy. Given that he has been on significant doses of steroids of late I am hesitant to try immunotherapy. I would like to start him on Pemetrexed after discharge. I do think he will need a few more days of IV antibiotic and steroids with close respiratory observation for now. Dr. Bahena is to see him later today. Ideally he would have a bronchoscopy to prove recurrence, however his respiratory status may in fact be too tenuous for this. -switch to ceftazidime -cont prednisone 40 mg daily for now -scheduled nebs -pulm consult -will give dose of B12 in anticipation of pemetrexed and start on folic acid DNR/DNI
[2016-05-01] MEDS ORDERED: Cyanocobalamin INJ * 1,000 MCG/ML VIAL 1 ML VIAL IM ONE (10:58)
[2016-05-01] MEDS: CEFTAZIDIME 2 GM IVPB SCH ×4 (11:17→22:27)
[2016-05-01] MEDS: Folic Acid TAB* 1 MG PO SCH (11:17)
[2016-05-01] MEDS ORDERED: Spiriva Inhaler DEVICE* 1 EACH DEVICE INH ONE (12:00)
[2016-05-01] MEDS: Enoxaparin(*) 40 MG/0.4 ML SYR SUBCUT SCH (12:47)
--- NOTE | 2016-05-01 16:50 | PN ---
Progress Note - Progress Note Note: Pulm consult f/u note 05/01/16. Pt seen and examined at bedside. Pt is 75 y o m who was recently d/sachin after being treated for post obstructive PNA, acute COPD exacerbation/reactive airways disease. He was brought in for evaluation of worsening SOB, required NIPPV. Active Medications Generic Name Dose Route Start Last Admin Trade Name Freq PRN Reason Stop Dose Admin Albuterol/Ipratropium 1 neb 05/01/16 09:59 05/01/16 15:20 Duoneb Neb.Sameera* INH 1 neb Q4H PRN Administration WHEEZING Albuterol/Ipratropium 1 neb 05/01/16 19:00 Duoneb Neb.Sameera* INH [id number] AWAKE MODESTA Citalopram Hydrobromide 20 mg 04/29/16 17:00 05/01/16 07:57 Celexa Tab* PO 20 mg DAILY [facility] Administration Enoxaparin Sodium 40 mg 04/29/16 14:00 05/01/16 12:47 Lovenox(*) SUBCUT 40 mg Q24H MODESTA Administration Famotidine 20 mg 04/29/16 21:00 05/01/16 07:57 Pepcid Tab* PO 20 mg BID MODE[facility] Administration Folic Acid 1 mg 05/01/16 11:00 05/01/16 11:17 Folvite Tab* PO 1 mg DAILY [facility] Administration Heparin Sodium (Porcine) 5 ml 05/02/16 09:00 Heparin Flush Port (Ivad)* FLUSH DAILY [facility] Protocol Ceftazidime 2 gm/ Sodium 100 mls @ 200 mls/hr 05/01/16 11:00 05/01/16 11:17 Chloride IVPB 200 mls/hr Q12H MODE[facility] Administration Mometasone Furoate/Formoterol Fumar 2 puff 05/01/16 21:00 Dulera 200/5 Mdi* INH BID MODE[facility] Prednisone 40 mg 05/01/16 09:00 05/01/16 07:57 Deltasone Tab* PO 40 mg DAILY MO[facility] Administration Tiotropium [place] 1 cap 05/02/16 09:00 Spiriva Cap.Inh* INH DAILY [facility] Vital Signs Temp Pulse Resp BP Pulse Ox 97.6 F 103 18 136/90 98 05/01/16 11:21 05/01/16 15:24 05/01/16 15:24 05/01/16 11:21 05/01/16 15:24 Gen: Pt in mild distress HEENT: PERRLA Resp: insp and exp wheezing CVS: tachycardic, S1, S2+ Abd: soft nt +bs Ext: no le edema, had edema on admission Gen: A+O x 3, nonfocal neurological exam Laboratory Results - last 24 hr 05/01/16 05:28 WBC 12.6 H RBC 3.57 L Hgb 9.8 L Hct 30 L MCV 83 MCH 28 MCHC 33 RDW 23 H Plt Count 157 MPV 7 L Neut % (Auto) 87.3 H Lymph % (Auto) 5.6 L [place] % (Auto) 6.7 Eos % (Auto) 0.3 Baso % (Auto) 0.1 Absolute Neuts (auto) 11.0 H Absolute Lymphs (auto) 0.7 L Absolute Monos (auto) 0.8 Absolute Eos (auto) 0 Absolute Basos (auto) 0 Absolute Nucleated RBC 0 Nucleated RBC % 0 Impression/Recommendations: 75 yo M w stage III adenocarcinoma of the lung sp cis/etoposide/RT readmitted with respiratory failure after recent hospitalization for postobstructive PNA. He feels slightly better today though not whole lot better. Still continues to get winded with minimal exertion. He was d/c ed on tapering dose of prednisone and is still continued on prednisone. Rpt CTA was negative for PE. Rt sided lung mass and volume loss is slightly progressed. Lymphadenopathy is also significant. He also has moderate Rt effusion secondary to trapped lung. No overt signs of infection at this time. SOB is likely secondary to endobronchial lesion with resultant obstruction in setting of decreased lung capacity from atelectasis as result of obstruction, pleural effusion. He does have signfiicant wheeze on auscultation that doesnot improve with steroids making it less likely to be reactive airways disease or hypersensitivity pneumonitis( he has reproted concern with dust and possible mold at place he is currently residing) He appears to be having increased wt gain from steroids Would try to taper steroids and maintain low dose even though we donot have any other way to treat his wheezing It is likely that his wheezing is related to endobronchial spread and might not improve Bronchoscopy would be helpful to confirm recurrence of malignancy and also to r/ o mucus plugs however I`m concerned about his resp status and wheezing and possibility of making reactive airways disease worse with bronchoscopy However if have no other better option I would go ahead with the procedure and will schedule it for Friday Discussed trying further palliative chemotherapy with Dr Whelan. -c/w ceftazidime -cont prednisone 40 mg daily for now and taper over the next few days -scheduled nebs DNR/DNI
[2016-05-01] MEDS: Mometasone/Formoter 200/5 MDI INH SCH (20:15)
[2016-05-02] MEDS: Albuterol/Ipratropium NEB.SOL* Albuterol 2.5 MG/Ipratropium 0.5 MG 3 ML INH SCH ×4 (00:41→19:30)
[2016-05-02] MEDS: Albuterol/Ipratropium NEB.SOL* Albuterol 2.5 MG/Ipratropium 0.5 MG 3 ML INH PRN (04:00)
[2016-05-02 05:54] LABS: BUN/Creatinine Ratio 14.7 (8-20); Calcium 8.6 mg/dL (8.6-10.3); EGFR African American 131.3 (>60); EGFR Non-African American 102.1 (>60); Potassium 3.9 mmol/L (3.5-5.0)
[2016-05-02 06:10] LABS: Hematocrit 30 % (42-52); Hemoglobin 9.9 g/dl (14.0-18.0); Mean Corpuscular HGB Conc 33 g/dl (31-36); Mean Corpuscular Hemoglobin 28 pg (27-31); Mean Corpuscular Volume 84 fL (80-94); Mean Platelet Volume 7 um3 (7.4-10.4); White Blood Count 8.8 10^3/ul (3.5-10.8)
[2016-05-02 06:26] LABS: Comments Flag Yes; Red Cell Distribution Width 23 % (10.5-15)
[2016-05-02] MEDS: Citalopram TAB* 20 MG PO SCH (08:02)
[2016-05-02] MEDS: Folic Acid TAB* 1 MG PO SCH (08:02)
[2016-05-02] MEDS: Famotidine TAB* 20 MG PO SCH ×2 (08:02→21:23)
[2016-05-02] MEDS: predniSONE TAB* 20 MG PO SCH (08:03)
[2016-05-02] MEDS: Mometasone/Formoter 200/5 MDI INH SCH ×2 (08:18→21:20)
[2016-05-02] MEDS: Tiotropium CAP.INH* CAP.INH/18 MCG (USE ORDER SET !) INH SCH (08:19)
--- NOTE | 2016-05-02 09:34 | PN ---
Progress Note - Progress Note SOAP: Subjective: still very wheezy this am. feels like he can not get enough air at times. Objective: Vital Signs Temp Pulse Resp BP Pulse Ox 98.0 F 103 16 145/77 99 05/02/16 07:31 05/02/16 08:19 05/02/16 08:19 05/02/16 07:31 05/02/16 08:19 sitting up in a chair, less tachypneic then yesterday perr eomi op moist diffuse insp and exp wheezes and rhonchi tachy soft nt +bs no le edema A+Ox 3 nonfocal neurological exam Laboratory Results - last 24 hr 05/02/16 05/02/16 05:23 06:00 WBC 8.8 RBC 3.60 L Hgb 9.9 L Hct 30 L MCV 84 MCH 28 MCHC 33 RDW 23 H Plt Count 168 MPV 7 L Neut % (Auto) 78.8 Lymph % (Auto) 8.8 L [place] % (Auto) 10.4 H Eos % (Auto) 1.2 Baso % (Auto) 0.8 Absolute Neuts (auto) 7.0 Absolute Lymphs (auto) 0.8 L Absolute Monos (auto) 0.9 H Absolute Eos (auto) 0.1 Absolute Basos (auto) 0.1 Absolute Nucleated RBC 0.02 Nucleated RBC % 0.2 Sodium 135 Potassium 3.9 Chloride 100 L Carbon Dioxide 29 Anion Gap 6 BUN 11 Creatinine 0.75 Est GFR ( Amer) 131.3 Est GFR (Non-Af Amer) 102.1 BUN/Creatinine Ratio 14.7 Glucose 107 H Calcium 8.6 Albuterol/Ipratropium (Duoneb Neb.Sameera*) 1 neb INH Q4H PRN PRN Reason: WHEEZING Last Admin: 05/02/16 04:00 Dose: 1 neb Albuterol/Ipratropium (Duoneb Neb.Sameera*) 1 neb INH [id number] AWAKE MODESTA Last Admin: 05/02/16 08:17 Dose: 1 neb Citalopram Hydrobromide (Celexa Tab*) 20 mg PO DAILY [facility] Last Admin: 05/02/16 08:02 Dose: 20 mg Enoxaparin Sodium (Lovenox(*)) 40 mg SUBCUT Q24H [facility] Last Admin: 05/01/16 12:47 Dose: 40 mg Famotidine (Pepcid Tab*) 20 mg PO BID [facility] Last Admin: 05/02/16 08:02 Dose: 20 mg Folic Acid (Folvite Tab*) 1 mg PO DAILY [facility] Last Admin: 05/02/16 08:02 Dose: 1 mg Heparin Sodium (Porcine) (Heparin Flush Port (Ivad)*) 5 ml FLUSH DAILY [facility] PRN Reason: Protocol Last Admin: 05/02/16 08:03 Dose: 5 ml Ceftazidime 2 gm/ Sodium (Chloride) 100 mls @ 200 mls/hr IVPB Q12H [facility] Last Admin: 05/01/16 22:27 Dose: 200 mls/hr Mometasone Furoate/Formoterol Fumar (Dulera 200/5 Mdi*) 2 puff INH BID [facility] Last Admin: 05/02/16 08:18 Dose: 2 puff Prednisone (Deltasone Tab*) 40 mg PO DAILY [facility] Last Admin: 05/02/16 08:03 Dose: 40 mg Tiotropium [place] (Spiriva Cap.Inh*) 1 cap INH DAILY [facility] Last Admin: 05/02/16 08:19 Dose: 1 cap.inh Assessment: 75 yo M w stage III adenocarcinoma of the lung sp cis/etoposide/RT readmitted with respiratory failure after recent hospitalization for postobstructive PNA. In discussing with Dr. Bahena, she feels that this likely represents an endobronchial lesion with resultant obstruction. He is clearly progressing and I agree with Dr. Bahena that bronch is likely too risky. I have discussed this again with Baldomero at length. He has a marginal performance status mainly limited by his respiratory distress. We discussed trying further palliative chemotherapy. Given that he has been on significant doses of steroids of late I am hesitant to try immunotherapy. I would like to start him on Pemetrexed after discharge, and will give him an appointment for friday We discussed that if his respiratory status declines or this therapy does not work I would recommend hospice care. He understands the rationale for this. I did offer to call his to discuss (she called my office yesterday), but he deferred this stating that he would explain himself. -cont ceftazidime, would give levaquin on discharge -cont prednisone 40 mg daily for now -scheduled nebs -cont folic acid DNR/DNI
[2016-05-02] MEDS: CEFTAZIDIME 2 GM IVPB SCH ×4 (10:30→23:06)
[2016-05-02] MEDS ORDERED: Enoxaparin(*) 40 MG/0.4 ML SYR ONE (14:30)
[2016-05-02] MEDS: Enoxaparin(*) 40 MG/0.4 ML SYR SUBCUT SCH (14:48)
--- NOTE | 2016-05-02 16:41 | PN ---
Progress Note - Progress Note Note: Pulm consult f/u note 05/02/16. Pt seen and examined at bedside. No change in breathing. Active Medications Generic Name Dose Route Start Last Admin Trade Name Freq PRN Reason Stop Dose Admin Albuterol/Ipratropium 1 neb 05/01/16 09:59 05/02/16 04:00 Duoneb Neb.Sameera* INH 1 neb Q4H PRN Administration WHEEZING Albuterol/Ipratropium 1 neb 05/01/16 19:00 05/02/16 13:58 Duoneb Neb.Sameera* INH 1 neb [id number] AWAKE MODESTA Administration Citalopram Hydrobromide 20 mg 04/29/16 17:00 05/02/16 08:02 Celexa Tab* PO 20 mg DAILY [facility] Administration Enoxaparin Sodium 40 mg 04/29/16 14:00 05/02/16 14:48 Lovenox(*) SUBCUT 40 mg Q24H [facility] Administration Famotidine 20 mg 04/29/16 21:00 05/02/16 08:02 Pepcid Tab* PO 20 mg BID [facility] Administration Folic Acid 1 mg 05/01/16 11:00 05/02/16 08:02 Folvite Tab* PO 1 mg DAILY [facility] Administration Heparin Sodium (Porcine) 5 ml 05/03/16 09:00 Heparin Flush Port (Ivad) FLUSH DAILY [facility] Protocol Ceftazidime 2 gm/ Sodium 100 mls @ 200 mls/hr 05/01/16 11:00 05/02/16 10:30 Chloride IVPB 200 mls/hr Q12H [facility] Administration Mometasone Furoate/Formoterol Fumar 2 puff 05/01/16 21:00 05/02/16 08:18 Dulera 200/5 Mdi* INH 2 puff BID [facility] Administration Prednisone 40 mg 05/01/16 09:00 05/02/16 08:03 Deltasone Tab* PO 40 mg DAILY [facility] Administration Tiotropium [place] 1 cap 05/02/16 09:00 05/02/16 08:19 Spiriva Cap.Inh* INH 1 cap.inh DAILY [facility] Administration Vital Signs Temp Pulse Resp BP Pulse Ox 98.0 F 116 22 142/87 97 05/02/16 15:22 05/02/16 15:22 05/02/16 15:22 05/02/16 15:22 05/02/16 15:22 Gen: Pt in mild distress HEENT: PERRLA Resp: insp and exp wheezing CVS: tachycardic, S1, S2+ Abd: soft nt +bs Ext: no le edema, had edema on admission Gen: A+O x 3, nonfocal neurological exam Laboratory Results - last 24 hr 05/02/16 05/02/16 05:23 06:00 WBC 8.8 RBC 3.60 L Hgb 9.9 L Hct 30 L MCV 84 MCH 28 MCHC 33 RDW 23 H Plt Count 168 MPV 7 L Neut % (Auto) 78.8 Lymph % (Auto) 8.8 L [place] % (Auto) 10.4 H Eos % (Auto) 1.2 Baso % (Auto) 0.8 Absolute Neuts (auto) 7.0 Absolute Lymphs (auto) 0.8 L Absolute Monos (auto) 0.9 H Absolute Eos (auto) 0.1 Absolute Basos (auto) 0.1 Absolute Nucleated RBC 0.02 Nucleated RBC % 0.2 Sodium 135 Potassium 3.9 Chloride 100 L Carbon Dioxide 29 Anion Gap 6 BUN 11 Creatinine 0.75 Est GFR ( Amer) 131.3 Est GFR (Non-Af Amer) 102.1 BUN/Creatinine Ratio 14.7 Glucose 107 H Calcium 8.6 Impression/Recommendations: 75 yo M w stage III adenocarcinoma of the lung sp cis/etoposide/RT readmitted with respiratory failure after recent hospitalization for postobstructive PNA. No significant improvement of breathing Still continues to get winded with minimal exertion. He was d/c ed on tapering dose of prednisone and is still continued on prednisone. Rpt CTA was negative for PE. Rt sided lung mass and volume loss is slightly progressed. Lymphadenopathy is also significant. He also has moderate Rt effusion secondary to trapped lung. No overt signs of infection at this time. SOB is likely secondary to endobronchial lesion with resultant obstruction in setting of decreased lung capacity from atelectasis as result of obstruction, pleural effusion. He does have signfiicant wheeze on auscultation that doesnot improve with steroids making it less likely to be reactive airways disease or hypersensitivity pneumonitis( he has reproted concern with dust and possible mold at place he is currently residing) He appears to be having increased wt gain from steroids Would try to taper steroids and maintain low dose even though we donot have any other way to treat his wheezing It is likely that his wheezing is related to endobronchial spread and might not improve Bronchoscopy would be helpful to confirm recurrence of malignancy and also to r/ o mucus plugs however I`m concerned about his resp status and wheezing and possibility of making reactive airways disease worse with bronchoscopy After discussing with Dr Whelan, bronchoscopy was deferred and pt to be started on chemo -c/w ceftazidime -cont prednisone 40 mg daily for now and taper over the next few days -scheduled nebs DNR/DNI
[2016-05-02] MEDS ORDERED: Albuterol/Ipratropium NEB.SOL* Albuterol 2.5 MG/Ipratropium 0.5 MG 3 ML ONE (19:28)
[2016-05-02] MEDS ORDERED: Famotidine TAB* 20 MG ONE (21:16)
[2016-05-03] MEDS: Albuterol/Ipratropium NEB.SOL* Albuterol 2.5 MG/Ipratropium 0.5 MG 3 ML INH SCH ×4 (01:00→19:41)
[2016-05-03] MEDS ORDERED: Albuterol/Ipratropium NEB.SOL* Albuterol 2.5 MG/Ipratropium 0.5 MG 3 ML ONE ×3 (01:27→08:38)
[2016-05-03] MEDS ORDERED: Tiotropium CAP.INH* CAP.INH/18 MCG (USE ORDER SET !) ONE (08:38)
[2016-05-03] MEDS: Tiotropium CAP.INH* CAP.INH/18 MCG (USE ORDER SET !) INH SCH (08:40)
[2016-05-03] MEDS: Mometasone/Formoter 200/5 MDI INH SCH ×2 (08:40→19:43)
[2016-05-03] MEDS: Folic Acid TAB* 1 MG PO SCH (09:55)
[2016-05-03] MEDS: predniSONE TAB* 20 MG PO SCH (09:55)
[2016-05-03] MEDS: Famotidine TAB* 20 MG PO SCH ×2 (09:55→20:54)
[2016-05-03] MEDS: Citalopram TAB* 20 MG PO SCH (09:56)
[2016-05-03] MEDS: CEFTAZIDIME 2 GM IVPB SCH ×2 (09:56)
--- NOTE | 2016-05-03 11:44 | DS ---
DATE OF ADMISSION: 04/29/2016. DATE OF DISCHARGE: 05/03/2016. DISCHARGE DIAGNOSES: 1. Postobstructive pneumonia: DC home on Levaquin. 2. Non-small cell lung cancer: Progressive, plans for Pemetrexed treatment starting next week. 3. Chronic obstructive pulmonary disease: Followed by Pulmonology. 4. Benign prostatic hypertrophy: Stable on Flomax. 5. Anxiety disorder: Continue Lexapro. DISCHARGE MEDICATIONS: 1. Dexamethasone 4 mg p.o. b.i.d. day before treatment, day of treatment, and day after treatment q .cycle. 2. Folic acid 1 mg p.o. daily. 3. Prednisone 20 mg tapered over next week. 4. Levaquin 750 mg p.o. daily times 10 days. 5. Singular 10 mg p.o. at bedtime. 6. Symbicort 2 puffs inhaled b.i.d. 7. Flomax 0.4 mg p.o. daily. 8. Escitalopram 10 mg p.o. daily. 9. Xopenex two puffs inhaled q.4 hours prn shortness of breath. 10. Melatonin 3 mg p.o. at bedtime prn sleep. 11. Albuterol/Ipratropium DuoNeb one inhaled q.4 hours prn SOB. HOSPITAL COURSE: Please see admission note for full history and physical. However, briefly, Mr. Ghulam washington is well-known to our service due to his unfortunately diagnosis of stage 3 adenocarcinoma of the lung, status post Cisplatin and Etoposide concurrent with RT, with course complicated by recurrent pneumonias and pneumonitis. Mr. Norton was admitted on 04/29/2016 following an ER visit due to taniya rtness of breath. He was admitted earlier this year as well, discharged on 04/17/2016. On admissio n, Mr. Norton was admitted to the ICU due to his respiratory distress. He was started on Meropenem on admission. He was seen by Dr. Bahena of Pulmonary on 05/01/2016; she has previously followed him as an outpatient. Unfortunately, it was felt that a component of Mr. Norton's symptoms were relate d to an endotracheal lesion with resultant obstruction. With his respiratory distress, he has been deemed a poor candidate for bronchoscopy. With limited improvement on steroids, it was felt this do es not represent a pneumonitis at this time. He was switched to Ceftazidime on 05/01/2016 and trans itioned out of the ICU on the afternoon of 04/30/2016 prior to this. Mr. Norton has been stable ove r the last 48 hours, still he remains wheezy, likely related to his lesion. Plan of care has been re viewed at length with Dr. Norton, whereby he will be discharged with plan for treatment. Goal is pa lliative to shrink the lesion and improve respiratory status. However, with his borderline performa nce status, if he does not tolerate treatment, he will be referred for hospice. On discharge, Mr. Kiah corona will go home with p.o. Levaquin, steroid taper, and instructions for his chemotherapy to start on May 07. Plan of care was reviewed at length with both Mr. Norton and his via telepho ne. All questions have been answered and Mr. Norton denies questions. Greater than 40 minutes were spent, with greater than 50 percent in [id number] counseling. MARIE JANE, TIO [id number]/CPS #: [id number]
--- NOTE | 2016-05-03 14:07 | PN ---
Progress Note - Progress Note Note: Pulm consult f/u note 05/03/16. Pt seen and examined at bedside. Slight improvement in breathing. Active Medications Generic Name Dose Route Start Last Admin Trade Name Freq PRN Reason Stop Dose Admin Albuterol/Ipratropium 1 neb 05/01/16 09:59 05/02/16 04:00 Duoneb Neb.Sameera* INH 1 neb Q4H PRN Administration WHEEZING Albuterol/Ipratropium 1 neb 05/01/16 19:00 05/03/16 08:41 Duoneb Neb.Sameera* INH 1 neb [id number] AWAKE MODESTA Administration Citalopram Hydrobromide 20 mg 04/29/16 17:00 05/03/16 09:56 Celexa Tab* PO 20 mg DAILY [facility] Administration Enoxaparin Sodium 40 mg 04/29/16 14:00 05/02/16 14:48 Lovenox(*) SUBCUT 40 mg Q24H [facility] Administration Famotidine 20 mg 04/29/16 21:00 05/03/16 09:55 Pepcid Tab* PO 20 mg BID [facility] Administration Folic Acid 1 mg 05/01/16 11:00 05/03/16 09:55 Folvite Tab* PO 1 mg DAILY [facility] Administration Heparin Sodium (Porcine) 5 ml 05/03/16 09:00 05/03/16 11:14 Heparin Flush Port (Ivad) FLUSH 5 ml DAILY [facility] Administration Protocol Ceftazidime 2 gm/ Sodium 100 mls @ 200 mls/hr 05/01/16 11:00 05/03/16 09:56 Chloride IVPB 200 mls/hr Q12H [facility] Administration Mometasone Furoate/Formoterol Fumar 2 puff 05/01/16 21:00 05/03/16 08:40 Dulera 200/5 Mdi* INH 2 puff BID [facility] Administration Prednisone 40 mg 05/01/16 09:00 05/03/16 09:55 Deltasone Tab* PO 40 mg DAILY [facility] Administration Tiotropium [place] 1 cap 05/02/16 09:00 05/03/16 08:40 Spiriva Cap.Inh* INH 1 cap.inh DAILY [facility] Administration Vital Signs Temp Pulse Resp BP Pulse Ox 98.3 F 113 22 138/73 93 05/03/16 08:18 05/03/16 08:30 05/03/16 08:30 05/03/16 07:37 05/03/16 08:30 Gen: Pt in mild distress HEENT: PERRLA Resp: insp and exp wheezing CVS: tachycardic, S1, S2+ Abd: soft nt +bs Ext: no le edema, had edema on admission Gen: A+O x 3, nonfocal neurological exam Laboratory Results - last 24 hr 05/02/16 05/02/16 05:23 06:00 WBC 8.8 RBC 3.60 L Hgb 9.9 L Hct 30 L MCV 84 MCH 28 MCHC 33 RDW 23 H Plt Count 168 MPV 7 L Neut % (Auto) 78.8 Lymph % (Auto) 8.[address] [place] % (Auto) 10.4 H Eos % (Auto) 1.2 Baso % (Auto) 0.8 Absolute Neuts (auto) 7.0 Absolute Lymphs (auto) 0.8 L Absolute Monos (auto) 0.9 H Absolute Eos (auto) 0.1 Absolute Basos (auto) 0.1 Absolute Nucleated RBC 0.02 Nucleated RBC % 0.2 Sodium 135 Potassium 3.9 Chloride 100 L Carbon Dioxide 29 Anion Gap 6 BUN 11 Creatinine 0.75 Est GFR ( Amer) 131.3 Est GFR (Non-Af Amer) 102.1 BUN/Creatinine Ratio 14.7 Glucose 107 H Calcium 8.6 Impression/Recommendations: 75 yo M w stage III adenocarcinoma of the lung sp cis/etoposide/RT readmitted with respiratory failure after recent hospitalization for postobstructive PNA. Slight improvement of breathing Still continues to get winded with minimal exertion. Taper prednisone over next 2 weeks Rpt CTA was negative for PE. Rt sided lung mass and volume loss is slightly progressed. Lymphadenopathy is also significant. He also has moderate Rt effusion secondary to trapped lung. No overt signs of infection at this time. SOB is likely secondary to endobronchial lesion with resultant obstruction in setting of decreased lung capacity from atelectasis as result of obstruction, pleural effusion. He does have signfiicant wheeze on auscultation that doesnot improve with steroids making it less likely to be reactive airways disease or hypersensitivity pneumonitis( he has reproted concern with dust and possible mold at place he is currently residing) Bronchoscopy would be helpful to confirm recurrence of malignancy and also to r/ o mucus plugs however I`m concerned about his resp status and wheezing and possibility of making reactive airways disease worse with bronchoscopy After discussing with Dr Whelan, bronchoscopy was deferred and pt to be started on chemo For d/c home today, will start chemo Friday DNR/DNI
[2016-05-03] MEDS: Enoxaparin(*) 40 MG/0.4 ML SYR SUBCUT SCH (15:50)
[2016-05-03] MEDS ORDERED: Morphine ORAL CONCENTRATE* 5 MG/0.25 ML ORAL.SYRIN PO PRN (16:37)
[2016-05-03] MEDS ORDERED: LORazepam TAB(*) 0.5 MG PO PRN (16:37)
--- NOTE | 2016-05-03 16:45 | PN ---
Progress Note - Progress Note SOAP: Subjective: []Feeling anxious about d/t home d/t SOB. Feels like it will become cyclical and get worse and he'll end up back in ER. Ex-partner remains his primary contact and advocate, however lives in [facility] while he live in [place]. Medications: Albuterol/Ipratropium (Duoneb Neb.Sameera*) 1 neb INH Q4H PRN PRN Reason: WHEEZING Last Admin: 05/02/16 04:00 Dose: 1 neb Albuterol/Ipratropium (Duoneb Neb.Sameera*) 1 neb INH [id number] AWAKE [facility] Last Admin: 05/03/16 14:11 Dose: 1 neb Citalopram Hydrobromide (Celexa Tab*) 20 mg PO DAILY [facility] Last Admin: 05/03/16 09:56 Dose: 20 mg Enoxaparin Sodium (Lovenox(*)) 40 mg SUBCUT Q24H [facility] Last Admin: 05/03/16 15:50 Dose: 40 mg Famotidine (Pepcid Tab*) 20 mg PO BID [facility] Last Admin: 05/03/16 09:55 Dose: 20 mg Folic Acid (Folvite Tab*) 1 mg PO DAILY [facility] Last Admin: 05/03/16 09:55 Dose: 1 mg Heparin Sodium (Porcine) (Heparin Flush Port (Ivad)) 5 ml FLUSH DAILY [facility] PRN Reason: Protocol Last Admin: 05/03/16 11:14 Dose: 5 ml Mometasone Furoate/Formoterol Fumar (Dulera 200/5 Mdi*) 2 puff INH BID [facility] Last Admin: 05/03/16 08:40 Dose: 2 puff Prednisone (Deltasone Tab*) 40 mg PO DAILY [facility] Last Admin: 05/03/16 09:55 Dose: 40 mg Tiotropium [place] (Spiriva Cap.Inh*) 1 cap INH DAILY [facility] Last Admin: 05/03/16 08:40 Dose: 1 cap.inh Objective: [] Vital Signs Temp Pulse Resp BP Pulse Ox 98.3 F 113 22 138/73 93 05/03/16 08:18 05/03/16 08:30 05/03/16 08:30 05/03/16 07:37 05/03/16 08:30 A&Ox3, EOMI, PERRLA LS with scatter wheezes, accessory muscle use, O2 via NC DAVALOS, +PP=bilat, no edema Assessment: []75 yo male with progressive adenocarcinoma of the lung, admitted with post obstructive pneumonia felt to be r/t obstruction lesion. Plan for d/c home, however significant SOB and anxiety r/t this appropriate for monitoring overnight with adjustment in PO meds. Plan: []1. SOB: Add morphine oral concentrate 5 mg PO q4hrs PRN SOB, trial lorazepam 0.5 mg PO q4hrs PRN anxiety/SOB 2. Pneumonia: stop IV abx. and change to PO Levaquin 750 mg daily starting tomorrow AM, taper prednisone 3. NSCLC: start palliative Pemetrexed 500 mg/m2 q21 days 05/07, cont. B12 injections (given during admission) [id number], cont. PO folic acid, start Dex. 4 mg PO BID Day before tx. and thru day 2. D/C in AM
[2016-05-04] MEDS: Albuterol/Ipratropium NEB.SOL* Albuterol 2.5 MG/Ipratropium 0.5 MG 3 ML INH SCH ×2 (00:47→07:52)
[2016-05-04] MEDS: Albuterol/Ipratropium NEB.SOL* Albuterol 2.5 MG/Ipratropium 0.5 MG 3 ML INH PRN (05:23)
--- NOTE | 2016-05-04 06:41 | PN ---
Progress Note - Progress Note SOAP: DISCHARGE NOTE Subjective: [Did fine overnight, better. Wants to go home today. Did not use Morphine or Lorazepam. On oxygen Objective: [] Vital Signs Temp Pulse Resp BP Pulse Ox 97.4 F 104 22 124/72 98 05/03/16 23:35 05/04/16 05:24 05/04/16 05:24 05/03/16 23:35 05/04/16 05:24 HEENT -Cushniod A&Ox3, EOMI, PERRLA LS with scatter wheezes, accessory muscle use, O2 via NC DAVALOS, +PP=bilat, no edema Assessment: []75 yo male with progressive adenocarcinoma of the lung, admitted with post obstructive pneumonia felt to be r/t obstruction lesion. Plan for d/c home, however significant SOB and anxiety r/t this appropriate for monitoring overnight with adjustment in PO meds. Plan: []1. SOB: Home on oral concentrate 5 mg PO q4hrs PRN SOB, trial lorazepam 0.5 mg PO q4hrs PRN anxiety/SOB. Call me for any difficulty on discharge, [phone] 2. Pneumonia: PO Levaquin 750 mg daily start today, taper prednisone 3. NSCLC: start palliative Pemetrexed 500 mg/m2 q21 days 05/07, cont. B12 injections (given during admission) u5wbpams, cont. PO folic acid, start Dex. 4 mg PO BID Day before tx. and thru day 2. 4. Follow up next week in office, appointment made.
[2016-05-04 07:44] VITALS: BP 173/103
[2016-05-04] MEDS: Mometasone/Formoter 200/5 MDI INH SCH (07:55)
[2016-05-04] MEDS: Tiotropium CAP.INH* CAP.INH/18 MCG (USE ORDER SET !) INH SCH (08:01)
[2016-05-04] MEDS: predniSONE TAB* 20 MG PO SCH (08:16)
[2016-05-04] MEDS: Famotidine TAB* 20 MG PO SCH (08:16)
[2016-05-04] MEDS: Folic Acid TAB* 1 MG PO SCH (08:16)
[2016-05-04] MEDS: Citalopram TAB* 20 MG PO SCH (08:17)
[2016-05-04] MEDS ORDERED: Levofloxacin TAB* 750 MG PO SCH (09:00)
== END 2016-05-04 09:15 | disposition home health service (06) | DRG 180 ==
LOC: ED 08:22 → ICU 12:19 → MED 04-30 14:09 → UNDODISIN 05-02 14:00
PROVIDERS: ADMIT Internal Medicine Critical Care Medicine; ATTEND Internal Medicine Hematology & Oncology
DX: C34.90 Malignant neoplasm of unspecified part of unspecified bronchus or lung (principal); J18.8 Other pneumonia, unspecified organism; J96.01 Acute respiratory failure with hypoxia; J44.9 Chronic obstructive pulmonary disease, unspecified; I10 Essential (primary) hypertension; J45.909 Unspecified asthma, uncomplicated; F41.9 Anxiety disorder, unspecified; F32.9 Major depressive disorder, single episode, unspecified; F41.0 Panic disorder [episodic paroxysmal anxiety]; Z98.42 Cataract extraction status, left eye; Z98.41 Cataract extraction status, right eye; Z87.891 Personal history of nicotine dependence; R73.9 Hyperglycemia, unspecified; N40.0 Benign prostatic hyperplasia without lower urinary tract symptoms; Z88.0 Allergy status to penicillin; Z66 Do not resuscitate
CPT/HCPCS: 36415; 36600; 71010; 71020; 71275; 80048; 80053; 81003; 82550; 82803; 83605; 83880; 84484; 85025; 85027; 85379; 85610; 86140; 87040; 87070; 87205; 93005; 94640; 94760; 99232; 99233; 99239; 99282; 99283; A9270-GY; J0692; J0713; J1642; J1650; J2185; J2930; J3420; J7512; Q9967

== ENCOUNTER 2016-05-17 16:24 | Inpatient (IN) | payer MEDICARE, MEDICAID ==
[2016-05-17] MEDS ORDERED: Levofloxacin 750 MG IVPREMIX(* 750 MG/150 ML BAG IVPB ONE (17:15)
--- NOTE | 2016-05-17 17:28 | RAD ---
HISTORY: Shortness of breath COMPARISONS: April 29, 2016, CT dated April 29, 2016 VIEWS:1: Single frontal portable view of the chest at 5:00 PM FINDINGS: LINES AND TUBES: There is left-sided chest port from a subclavian approach with the tip overlying the superior vena cava CARDIOMEDIASTINAL SILHOUETTE: The cardiomediastinal silhouette is normal for portable technique. PLEURA: The costophrenic angles are sharp. No pleural abnormalities are noted. LUNG PARENCHYMA: Again noted is confluent alveolar opacification of the right upper lobe, and to lesser extent of the right lower lobe. There is slightly improved aeration of compared to the previous examination. The right hilar mass noted on previous examinations is not well evaluated on the current examination. ABDOMEN: The upper abdomen is clear. There is no subphrenic gas. BONES AND SOFT TISSUES: No bone or soft tissue abnormalities are noted. IMPRESSION: PERSISTENT AND SLIGHTLY IMPROVED RIGHT LUNG CONSOLIDATION.
[2016-05-17 17:53] LABS: Hematocrit 32 % (42-52); Hemoglobin 10.5 g/dl (14.0-18.0); Mean Corpuscular HGB Conc 33 g/dl (31-36); Mean Corpuscular Hemoglobin 28 pg (27-31); Mean Corpuscular Volume 85 fL (80-94); Mean Platelet Volume 7 um3 (7.4-10.4); Red Blood Count 3.73 10^6/ul (4.0-5.4); Red Cell Distribution Width 20 % (10.5-15)
[2016-05-17 17:58] LABS: Add Diff/Slide Review? Slide Review Added; Comments Flag Yes
[2016-05-17] MEDS ORDERED: [UNRECOGNIZED DRUG - OTHER] IVPB ONE ×2 (18:00)
[2016-05-17] MEDS ORDERED: Vancomycin per Pharmacy* NOTE FOLLOW UP SCH (18:00)
[2016-05-17] MEDS ORDERED: VANCOMYCIN IVPB ONE ×2 (18:00)
[2016-05-17 18:09] LABS: Albumin 2.7 g/dL (3.2-5.2); BUN/Creatinine Ratio 12.8 (8-20); Calcium 8.1 mg/dL (8.6-10.3); EGFR African American 125.5 (>60); EGFR Non-African American 97.6 (>60); Globulin 3.1 g/dL (2-4); Potassium 4.3 mmol/L (3.5-5.0); Total Protein 5.8 g/dL (6.4-8.9)
[2016-05-17 18:11] LABS: Troponin I 0.01 ng/mL (<0.04)
[2016-05-17] MEDS ORDERED: Iohexol 350* (CONTRAST) 500 ML MDV IV ONE (18:12)
[2016-05-17] MEDS ORDERED: Heparin DRIP 25,000 UNITS(*) 25,000 UNITS/500 ML BAG IVPB SCH (18:15)
--- NOTE | 2016-05-17 18:52 | RAD ---
HISTORY: Recurrent lung cancer, shortness of breath COMPARISONS: April 29, 2016 TECHNIQUE: Multiple contiguous axial CT scans of the chest were obtained after the administration of nonionic intravenous contrast, timed to the pulmonary arterial phase of contrast enhancement.. Coronal and sagittal multiplanar reformations are also submitted for review. FINDINGS: NECK AND THYROID: The lower neck and thyroid are unremarkable. CHEST WALL: There is no lower cervical, axillary, or supraclavicular lymphadenopathy by size criteria. There is left-sided chest port HEART AND PERICARDIUM: The heart is unremarkable. AORTA AND PULMONARY VASCULATURE: There is no pulmonary arterial filling defect to suggest pulmonary embolism. There is no linear filling defect within the aorta to suggest aortic dissection. MEDIASTINUM: Again noted are multiple mediastinal lymph nodes that are mildly enlarged ANGIE: Again noted is a right perihilar mass similar to the previous examination. AIRWAY AND ESOPHAGUS: The airway is unremarkable, without endobronchial filling defect. The esophagus is grossly normal. LUNG PARENCHYMA: There is atheromatous change. As noted above, there is right perihilar mass, stable. There is persistent but somewhat improved consolidation of the right lung. PLEURA: There is a moderate right pleural effusion. This has slightly progressed from the previous examination. UPPER ABDOMEN: There are stable low-attenuation liver lesions. BONES AND SOFT TISSUES: Degenerative changes are noted OTHER: None. IMPRESSION: 1. NO PULMONARY ARTERIAL FILLING DEFECT TO SUGGEST PULMONARY EMBOLISM. 2. PERSISTENT RIGHT PERIHILAR MASS AND LYMPHADENOPATHY. 3. PERSISTENT BUT SOMEWHAT IMPROVED CONSOLIDATIVE CHANGES OF THE RIGHT LUNG. 4. MODERATE RIGHT PLEURAL EFFUSION, SLIGHTLY PROGRESSED FROM THE MOST RECENT PREVIOUS EXAMINATION
[2016-05-17] MEDS ORDERED: Heparin VIAL(*) 5000 UNITS/ML VIAL (FIVE THOUSAND) IV SCH (19:00)
[2016-05-17 19:14] LABS: Total Bilirubin 1.1 mg/dL (0.2-1.0)
[2016-05-17] MEDS ORDERED: LORazepam INJ* 2 MG/ML 1 ML VIAL IV PUSH ONE (20:00)
[2016-05-17] MEDS ORDERED: CMCS: Melatonin (NF) 3 MG TAB PO PRN (20:13)
[2016-05-17] MEDS ORDERED: Morphine INJ* 2 MG/ML 1 ML CARPUJECT IV ONE (20:13)
[2016-05-17] MEDS ORDERED: LORazepam TAB(*) 0.5 MG PO PRN (20:13)
[2016-05-17] MEDS ORDERED: Furosemide IV* 10 MG/ML 10 ML VIAL (100 MG) IV ONE (20:13)
[2016-05-17] MEDS ORDERED: methylPREDNISolone 125 MG* 2 ML VIAL IV ONE (20:15)
[2016-05-17] MEDS ORDERED: Acetaminophen TAB* 325 MG PO PRN (20:18)
[2016-05-17] MEDS ORDERED: Morphine INJ* 2 MG/ML 1 ML CARPUJECT IV PRN (20:18)
[2016-05-17] MEDS ORDERED: Montelukast Sodium TAB* 10 MG PO SCH (21:00)
[2016-05-17] MEDS ORDERED: Enoxaparin(*) 40 MG/0.4 ML SYR SUBCUT SCH (21:00)
[2016-05-17 21:26] LABS: Urine Bilirubin Negative (Negative); Urine Glucose Negative (Negative); Urine Nitrite Negative (Negative)
--- NOTE | 2016-05-17 21:29 | ED ---
Magdi Glynn Michael, scribed for Daniele Tomas MD on 05/17/16 at 1715 . Complex/Multi-Sys Presentation - HPI Summary HPI Summary: 75 y/o male was BIBA to the ED presenting with worsening weakness, SOB, and productive cough that started 2 weeks ago and has continually worsened. The pt has produced yellow sputum with occasionally bright red blood per family member. The pt's symptoms were not alleviated with liquid morphine this morning. He denies CP. The family member was bedside and reports that the pt recently started a a new round of chemotherapy 2 weeks ago for a reoccurring tumor. The pt visits Dr. Whelan (Oncology). She ordered [facility] services for the patient. One week ago, the pt finished abx for PNA, and he was placed on home oxygen one week ago. The PMHx is significant for COPD and intermittent episodes of tachycardia. There is no hx of CAD or A-fib. - History Of Current Complaint Chief Complaint: EDRespiratoryDistress Time Seen by Provider: 05/17/16 16:31 Hx Obtained From: Patient, Family/Chargeback Specialist, EMS, Medical Records Onset/Duration: Gradual Onset, Lasting Weeks, Still Present Timing: Constant Severity Currently: Moderate Severity Initially: Moderate Alleviating Factor(s): nothing Associated Signs And Symptoms: Positive: SOB, Cough, Other - SOB. Negative: Chest Pain - Allergies/Home Medications Allergies/Adverse Reactions: Allergies Allergy/AdvReac Type Severity Reaction Status Date / Time Penicillins Allergy Intermediate Hives Verified 02/09/16 11:29 PMH/Surg Hx/FS Hx/Imm Hx Endocrine/Hematology History: Denies: Hx Diabetes, Hx Thyroid Disease, Hx Anemia, Hx Unexplained Bleeding Cardiovascular History: Reports: Hx Hypertension - meds used Denies: Hx Aneurysm, Hx Angina, Hx Angioplasty, Hx Auto Implanted Cardiovert Defib, Hx Cardiac Arrest, Hx Cardiomegaly, Hx Congenital Heart Disease, Hx Congestive Heart Failure, Hx Coronary Artery Disease, Hx Deep Vein Thrombosis, Hx Embolism, Hx Hypercholesterolemia, Hx Hypotension, Hx Pacemaker/ICD, Hx Peripheral Vascular Disease, Hx Rheumatic Fever, Hx Syncope, Hx Valvular Heart Disease, Other Cardiovascular Problems/Disorders Respiratory History: Reports: Hx Asthma, Hx Chronic Obstructive Pulmonary Disease (COPD) Denies: Hx Chronic Bronchitis, Hx Cystic Fibrosis, Hx Lung Cancer, Hx Pleural Effusion, Hx Pneumonia, Hx Pulmonary Edema, Hx Pulmonary Embolism, Hx Seasonal Allergies, Hx Sleep Apnea, Other Respiratory Problems/Disorders GI History: Reports: Hx Hiatal Hernia Denies: Hx Cirrhosis, Hx Gall Bladder Disease, Hx Obstructive Bowel, Hx Ileostomy, Hx Ulcer History: Denies: Hx Dialysis, Hx Kidney Stones, Hx Renal Disease Musculoskeletal History: Denies: Hx Arthritis, Hx Osteoporosis Sensory History: Reports: Hx Cataracts - surgery 2012, Hx Contacts or Glasses, Hx Vision Problem Denies: Hx Hearing Aid, Hx Hearing Problem Opthamlomology History: Reports: Hx Cataracts - surgery 2012, Hx Contacts or Glasses, Hx Vision Problem Neurological History: Denies: Hx Dementia, Hx Developmental Delay, Hx Headaches, Hx Migraine, Hx Nerve Disease, Hx Seizures, Hx Transient Ischemic Attacks (TIA) Psychiatric History: Reports: Hx Anxiety, Hx Depression, Hx Panic Disorder - ANXIETY, Hx Substance Abuse - PREVIOUS DRINKER - Cancer History Cancer Type, Location and Year: lung CA Hx Chemotherapy: No Hx Radiation Therapy: Yes - Surgical History Surgery Procedure, Year, and Place: hernia x3, lung bx 2014 Hx Anesthesia Reactions: No Infectious Disease History: No Infectious Disease History: Reports: Hx Hepatitis Denies: Hx Human Immunodeficiency Virus (HIV), Hx of Known/Suspected MRSA, Hx Tuberculosis, History Other Infectious Disease, Traveled Outside the [place] in Last 30 Days - Family History Known Family History: Positive: Other - Cancer - Social History Occupation: Retired Lives: Alone Alcohol Use: None Alcohol Amount: 2 beers, used to be an alcoholic Substance Use Type: Reports: None Substance Use Comment - Amount & Last Used: Pt unable to recall last use, but stated it was a few months ago. Hx Tobacco Use: Yes Smoking Status (MU): Former Smoker Type: Cigarettes Have You Smoked in the Last Year: Yes - quit almost a year ago as of 07/03/15 Review of Systems Negative: Fever Negative: Chest Pain Positive: Shortness Of Breath, Cough Positive: Weakness All Other Systems Reviewed And Are Negative: Yes Physical Exam - Summary Physical Exam Summary: General: Comfortable, pleasant, alert HEENT: Moist mucosa, MIRTHA Neck: soft, supple, no adenopathy, no edema, Heart: irregular on monitor with p waves and rate in 110-119, Right superior ventricular firm lymph node. Lungs: saturation 95% on three liters, slight diminished air movement on left. Abdominal: Softly distended, no tenderness. Extremities: no calf tenderness, no calf erythema, mild bilateral pitting edema around the ankles. Neuro: Alert and oriented x 3 Psych: Logical, coherent Triage Information Reviewed: Yes Vital Signs On Initial Exam: Initial Vitals Temp Pulse Resp BP Pulse Ox 97.1 F 125 26 125/91 96 05/17/16 16:26 05/17/16 16:26 05/17/16 16:26 05/17/16 16:26 05/17/16 16:26 Vital Signs Reviewed: Yes Diagnostics - Vital Signs Vital Signs Temp Pulse Resp BP Pulse Ox 05/17/16 16:26 97.1 F 125 26 125/91 96 - Laboratory Lab Results: Lab Results 05/17/16 05/17/16 05/17/16 Range/Units 17:37 17:37 17:37 WBC 6.0 (3.5-10.8) 10^3/ul RBC 3.73 L (4.0-5.4) 10^6/ul Hgb 10.5 L (14.0-18.0) g/dl Hct 32 L (42-52) % MCV 85 (80-94) fL MCH 28 (27-31) pg MCHC 33 (31-36) g/dl RDW 20 H (10.5-15) % Plt Count 88 L (150-450) 10^3/ul MPV 7 L (7.4-10.4) um3 Neut % (Auto) 80.1 (38-83) % Lymph % (Auto) 6.6 L (25-47) % Storey % (Auto) 12.9 H (1-9) % Eos % (Auto) 0.3 (0-6) % Baso % (Auto) 0.1 (0-2) % Absolute Neuts (auto) 4.8 (1.5-7.7) 10^3/ul Absolute Lymphs (auto) 0.4 L (1.0-4.8) 10^3/ul Absolute Monos (auto) 0.8 (0-0.8) 10^3/ul Absolute Eos (auto) 0 (0-0.6) 10^3/ul Absolute Basos (auto) 0 (0-0.2) 10^3/ul Absolute Nucleated RBC 0.01 10^3/ul Nucleated RBC % 0.1 INR (Anticoag Therapy) (0.89-1.11) APTT (26.0-36.3) seconds D-Dimer, Quantitative (Less Than 230) ng/mL Sodium 126 L (133-145) mmol/L Potassium 4.3 (3.5-5.0) mmol/L Chloride 92 L (101-111) mmol/L Carbon Dioxide 27 (22-32) mmol/L Anion Gap 7 (2-11) mmol/L BUN 10 (6-24) mg/dL Creatinine 0.78 (0.67-1.17) mg/dL Est GFR ( Amer) 125.5 (>60) Est GFR (Non-Af Amer) 97.6 (>60) BUN/Creatinine Ratio 12.8 (8-20) Glucose 184 H (70-100) mg/dL Lactic Acid 1.0 (0.5-2.0) mmol/L Calcium 8.1 L (8.6-10.3) mg/dL Total Bilirubin 1.10 H (0.2-1.0) mg/dL AST 103 H (13-39) U/L ALT 93 H (7-52) U/L Alkaline Phosphatase 50 (34-104) U/L Troponin I 0.01 (<0.04) ng/mL B-Natriuretic Peptide ( - 100) pg/mL Total Protein 5.8 L (6.4-8.9) g/dL Albumin 2.7 L (3.2-5.2) g/dL Globulin 3.1 (2-4) g/dL Albumin/Globulin Ratio 0.9 L (1-3) Procalcitonin (<0.6) ng/mL 05/17/16 05/17/16 05/17/16 Range/Units 17:37 17:37 17:37 WBC (3.5-10.8) 10^3/ul RBC (4.0-5.4) 10^6/ul Hgb (14.0-18.0) g/dl Hct (42-52) % MCV (80-94) fL MCH (27-31) pg MCHC (31-36) g/dl RDW (10.5-15) % Plt Count (150-450) 10^3/ul MPV (7.4-10.4) um3 Neut % (Auto) (38-83) % Lymph % (Auto) (25-47) % Storey % (Auto) (1-9) % Eos % (Auto) (0-6) % Baso % (Auto) (0-2) % Absolute Neuts (auto) (1.5-7.7) 10^3/ul Absolute Lymphs (auto) (1.0-4.8) 10^3/ul Absolute Monos (auto) (0-0.8) 10^3/ul Absolute Eos (auto) (0-0.6) 10^3/ul Absolute Basos (auto) (0-0.2) 10^3/ul Absolute Nucleated RBC 10^3/ul Nucleated RBC % INR (Anticoag Therapy) 1.33 H (0.89-1.11) APTT 105.1 H* (26.0-36.3) seconds D-Dimer, Quantitative > 1050 H (Less Than 230) ng/mL Sodium (133-145) mmol/L Potassium (3.5-5.0) mmol/L Chloride (101-111) mmol/L Carbon Dioxide (22-32) mmol/L Anion Gap (2-11) mmol/L BUN (6-24) mg/dL Creatinine (0.67-1.17) mg/dL Est GFR ( Amer) (>60) Est GFR (Non-Af Amer) (>60) BUN/Creatinine Ratio (8-20) Glucose (70-100) mg/dL Lactic Acid (0.5-2.0) mmol/L Calcium (8.6-10.3) mg/dL Total Bilirubin (0.2-1.0) mg/dL AST (13-39) U/L ALT (7-52) U/L Alkaline Phosphatase (34-104) U/L Troponin I (<0.04) ng/mL B-Natriuretic Peptide 32 ( - 100) pg/mL Total Protein (6.4-8.9) g/dL Albumin (3.2-5.2) g/dL Globulin (2-4) g/dL Albumin/Globulin Ratio (1-3) Procalcitonin 0.2 (<0.6) ng/mL Result Diagrams: 05/17/16 17:37 05/17/16 17:37 Lab Statement: Any lab studies that have been ordered have been reviewed, and results considered in the medical decision making process. - Radiology CXR Xray Interpretation: Positive (See Comments) - PERSISTENT AND SLIGHTLY IMPROVED RIGHT LUNG CONSOLIDATION. Radiology Interpretation Completed By: Radiologist - EKG EK EKG Rhythm: Sinus Tachycardia - 145 bpm EKG Interpretation: no st changes. frequent PACs - Additional Comments Diagnostic Additional Comments: bedside US was limited due to body habitus and gas. Unable to get a clear picture of right ventricle to determine pericardial effusion or RV dilation to suggest PE. Complex Multi-Symp Course/Dx Course Of Treatment: Dr. Whelan was consulted at 1845. Dr. Whelan wants patient to be admitted to her through the hospital. Dr. Snyder ( Hospitalist) was consulted at 1920-accepts the pt as an admission. Assessment/Plan: He presents with SOB worsening compared to recent complications regarding recurrent lung cancer. Negative for PE. At this point a lot of our care is supportive and to treat any underlying PNA on the right. Admitted to the Hospitalist. - Diagnoses Provider Diagnoses: Respiratory distress - Critical Care Time Critical Care Time: 30-74 min - 60 minutes Discharge - Discharge Plan Condition: Stable Disposition: ADMITTED TO [facility] Discharge Disposition Comment: Admitted to hospitalist The documentation as recorded by the Magdi parikh Michael accurately reflects the service I personally performed and the decisions made by me, Daniele Tomas MD.
--- NOTE | 2016-05-17 21:31 | PN ---
Progress Note - Progress Note Note: Discussed with MATT Ferraro. Mr Norton is a 75YO male HX lung CA on treatment admitted to [facility] in April 2016 for CAP who presents with 2 weeks of progressive SOB. He received 1L IVFs today with worsening SOB afterwards. He will be admitted for probable volume overload and COPD exacerbation, and close monitoring for relapsing pneumonia.
--- NOTE | 2016-05-17 22:21 | HP ---
ADMISSION HISTORY AND PHYSICAL: DATE OF ADMISSION: 05/17/16 PRIMARY CARE PROVIDER: Calos Mcneal MD. PRIMARY ONCOLOGIST: Dr. Whelan. ADMITTING PROVIDER: MATT Alcantara. SUPERVISING PHYSICIAN: Gurpreet Snyder MD.* (DICTATED BY MATT ALCANTARA) CHIEF COMPLAINT: Increasing shortness of breath. HISTORY OF PRESENT ILLNESS: This is a pleasant 75-year-old gentleman with non- small cell lung carcinoma, followed by Dr. Whelan as well as history of COPD, BPH and anxiety disorder. The patient was admitted from 04/29/16 through for postobstructive pneumonia, which did require an ICU stay for acute respiratory failure. The patient was discharged to home with Levaquin and a steroid taper, which the patient states that he completed his medications as prescribed. The patient has completed a prior course of the etoposide and cisplatin as well as radiation therapy with unfortunately no significant response to the tumor. Plan was to initiate a new palliative regimen with pemetrexed. The patient states that he started his new chemo regimen last week and believes that his next infusion is scheduled in another 2 weeks. He states that since his chemo infusion, he has had depressed energy and increasing shortness of breath. He received a liter of fluids at home today as he was not feeling well. He states that after receiving this liter of fluid, his shortness of breath seemed to become acutely worse for which he presented to the emergency department. The patient states that he has had an increased cough, which seemed to improve slightly since his admission but seems to be getting worse again. He reports a poor appetite. He has been afebrile at home. PAST MEDICAL HISTORY: 1. Non-small cell lung carcinoma followed by Dr. Whelan status post a course of etoposide and cisplatin with radiation therapy and recently initiated pemetrexed. 2. Severe COPD requiring 3 L of supplemental oxygen at home. 3. Chronic respiratory failure secondary to COPD and lung carcinoma. 4. BPH. 5. Anxiety disorder. HOME MEDICATIONS: 1. DuoNeb inhaled q.4 hours as needed for shortness of breath. 2. Symbicort 2 puffs inhaled twice daily. 3. Lexapro 10 mg p.o. daily. 4. Folic acid 1 mg p.o. daily. 5. Lorazepam 0.5 mg p.o. q.4 hours as needed for anxiety. 6. Xopenex 2 puffs inhaled q.4 hours as needed for shortness of breath. 7. Melatonin 3 mg p.o. at bedtime as needed for insomnia. 8. Singulair 10 mg p.o. at bedtime. 9. Morphine oral concentrate 5 mg/0.25 mL, was instructed to take 5 mg p.o. q.4 hours as needed for pain. 10. Flomax 0.4 mg p.o. daily. SOCIAL HISTORY: The patient is and lives at home with his . He does have a history of smoking but quit about a year ago. Denies any regular alcohol consumption. REVIEW OF SYSTEMS: As noted above in HPI and otherwise negative. PHYSICAL EXAMINATION GENERAL: This is a very pleasant elderly gentleman who appears mildly anxious and tachypneic. INITIAL VITAL SIGNS: Temperature 97.1 degrees Fahrenheit, pulse 125 beats per minute, respiratory rate 26, oxygen saturation 96% on 6 L and blood pressure 125 /91 mmHg. HEENT: Head is normocephalic, atraumatic with moist mucous membranes. RESPIRATORY: The patient has a diffuse wheeze appreciate in all lung armas and a few crackles noted. CARDIOVASCULAR: He has a tachycardic rhythm, but it is regular and does not have any significant murmurs, rubs, or gallops. ABDOMEN: Abdomen is slightly distended, but otherwise soft and nontender to palpation. EXTREMITIES: The patient has 1+ lower extremity edema in both lower extremities. SKIN: Limited exam shows no concerning rashes or lesions. LABORATORY EVALUATION: CBC shows a white blood cell count of 6000, hemoglobin 10.5 g/dL and a platelet count of 88,000. INR of 1.33. PTT of 100 and a D-dimer of greater than 1050. Comprehensive metabolic panel shows a sodium of 126 mmol/L, potassium 4.3, serum bicarb of 27, BUN of 10, creatinine 0.78, estimated GFR of 97. Random glucose of 184 mg/dL. Total bilirubin of 1.1. AST 103 and ALT of 93. Troponin is negative at 0.01. IMAGING: EKG shows sinus tachycardia with a rate of about 140 beats per minute. CTA is negative for PE. There is persistent right upper lobe mass with some consolidative changes surrounding and moderately sized pleural effusion that appears larger when compared to last study from a couple of weeks ago. ASSESSMENT AND PLAN: This is a 75-year-old gentleman with non-small cell lung carcinoma, nonresponsive to initial chemo and radiation and just had an extended hospital stay for postobstructive pneumonia and discharged home with Levaquin and a steroid taper who had initiated a new palliative chemo regimen who returns with increasing shortness of breath. 1. Dyspnea - etiology of his acute dyspnea is likely multifactorial. The size of his pleural effusion has increased since his last hospital stay. This may be contributing to this. It is difficult to discern based on his CT scan whether he has re-infected the right lung. He is afebrile and without leukocytosis, but is immune compromised. Procalcitonin is pending at this time. He did receive Levaquin in the emergency department preemptively. Initial concern was for a PE as his D-dimer is significantly elevated, but CTA was negative. The patient does have a significant wheeze appreciated throughout all lung armas and significant underlying COPD. A COPD exacerbation could also be contributing to his acute symptoms. For the time being, we will plan to lightly diurese with Lasix. Provide some Ativan and morphine to decrease his air hunger and start steroids in addition to continuing his typical inhaled medications. We will wait for the procalcitonin to help guide whether re-initiating IV antibiotics is indicated at this time. 2. Chronic respiratory failure secondary to chronic obstructive pulmonary disease and non-small cell lung carcinoma, requiring 3 L of oxygen chronically, now receiving 6 L via nasal cannula in the emergency department. 3. Severe chronic obstructive pulmonary disease with associated exacerbation. 4. Non-small cell lung carcinoma followed by Dr. Whelan status post therapy with etoposide and cisplatin as well as radiation therapy without significant tumor response. He has now been started on a palliative regimen of pemetrexed. 5. Benign prostatic hypertrophy. 6. Anxiety disorder. 7. Code status. The patient is DNR/DNI. 8. Healthcare proxy is the patient's , Tatianna Norton. 9. DVT prophylaxis - the patient is at [id number] risk for DVT and will be placed on 40 mg of Lovenox subcu daily. DISPOSITION: The patient is being admitted inpatient for increased dyspnea in the setting of non-small cell lung carcinoma with increased pleural effusion and questionable recurrence of postobstructive pneumonia. Oncology team will evaluate this patient tomorrow. Anticipate length of stay to be greater than 2 midnights. MATT ALCANTARA CC: Calos Mcneal MD; Dr. Whelan * [id number]/CPS #: [id number] MTDD
[2016-05-17 22:27] LABS: Hematocrit 30 % (42-52); Hemoglobin 9.9 g/dl (14.0-18.0); Mean Corpuscular HGB Conc 33 g/dl (31-36); Mean Corpuscular Hemoglobin 28 pg (27-31); Mean Corpuscular Volume 86 fL (80-94); Mean Platelet Volume 7 um3 (7.4-10.4); Red Blood Count 3.54 10^6/ul (4.0-5.4); Red Cell Distribution Width 20 % (10.5-15); White Blood Count 5.7 10^3/ul (3.5-10.8)
[2016-05-17 22:28] LABS: Add Diff/Slide Review? Slide Review Added; Comments Flag Yes
[2016-05-17] MEDS: Mometasone/Formoter 100/5 MDI INH SCH (23:07)
[2016-05-18] MEDS: Albuterol/Ipratropium NEB.SOL* Albuterol 2.5 MG/Ipratropium 0.5 MG 3 ML INH PRN ×4 (01:08→21:52)
[2016-05-18 05:57] LABS: Hematocrit 29 % (42-52); Hemoglobin 9.5 g/dl (14.0-18.0); Mean Corpuscular HGB Conc 33 g/dl (31-36); Mean Corpuscular Hemoglobin 28 pg (27-31); Mean Corpuscular Volume 85 fL (80-94); Mean Platelet Volume 7 um3 (7.4-10.4); Red Cell Distribution Width 20 % (10.5-15)
[2016-05-18 05:58] LABS: Add Diff/Slide Review? Slide Review Added; Comments Flag Yes
[2016-05-18 06:03] LABS: BUN/Creatinine Ratio 15.1 (8-20); Calcium 7.9 mg/dL (8.6-10.3); EGFR African American 112.1 (>60); EGFR Non-African American 87.2 (>60); Potassium 4.7 mmol/L (3.5-5.0)
[2016-05-18] MEDS: Morphine INJ* 2 MG/ML 1 ML CARPUJECT IV PRN ×4 (07:43→21:30)
--- NOTE | 2016-05-18 07:50 | PN ---
Progress Note - Progress Note SOAP: Subjective: very short of breath with any movement. fell at home when he tried to ambulate because he is so weak. does not feel that he can care for self at home any longer. no pain just overwhelming SOB. Objective: Vital Signs Temp Pulse Resp BP Pulse Ox 97.0 F 89 20 113/68 99 05/18/16 03:36 05/18/16 03:36 05/18/16 07:31 05/18/16 03:36 05/18/16 03:36 sitting up in chair then moved to bed, rr 26 at rest 50 on any movement perr eomi op dry diffuse rhonchi and wheezes, dec bs r base tachy soft nt +Bs no le edema A+O x 3, globally weak but nonfocal Assessment: 75 yo M w locally advanced NSCLC with progression of disease and deterioration of performance status despite palliative chemotherapy. I discussed this with Baldomero and his Otilia at length. We have previously discussed this as well. At this point he can not tolerate any further therapy for his lung cancer and is no longer able to care for himself at home. I have recommended hospice care, which they are completely in agreement with. We discussed hospice residence vs. intermediate with hospice, and he would be open to considering either. We will get a hospice consult on Friday. We will institute comfort measures with generous morphine and ativan for respiratory distress. Acetaminophen (Tylenol Tab*) 650 mg PO Q4H PRN PRN Reason: FEVER/PAIN Albuterol/Ipratropium (Duoneb Neb.Sameera*) 1 neb INH Q4H PRN PRN Reason: sob Last Admin: 05/18/16 01:08 Dose: 1 neb Lorazepam (Ativan Tab(*)) 1 mg PO Q2H PRN PRN Reason: anxiety/sob Mometasone Furoate/Formoterol Fumar (Dulera 100/5 Mdi*) 2 puff INH BID MODESTA Last Admin: 05/17/16 23:07 Dose: Not Given Morphine Sulfate (Morphine Inj (Syringe)*) 2 mg IV Q1H PRN PRN Reason: SOB/Pain Last Admin: 05/18/16 07:43 Dose: 2 mg Tamsulosin HCl (Flomax Cap*) 0.4 mg PO DAILY [facility]
[2016-05-18] MEDS: Mometasone/Formoter 100/5 MDI INH SCH ×2 (08:06→21:52)
[2016-05-18] MEDS: Tamsulosin CAP* 0.4 MG PO SCH (08:07)
[2016-05-18] MEDS ORDERED: predniSONE TAB* 20 MG PO SCH (08:30)
[2016-05-18] MEDS ORDERED: Folic Acid TAB* 1 MG PO SCH (09:00)
[2016-05-18] MEDS ORDERED: Citalopram TAB* 20 MG PO SCH (09:00)
[2016-05-18] MEDS: LORazepam TAB(*) 1 MG PO PRN ×2 (14:54→21:43)
[2016-05-18] MEDS ORDERED: Benzocaine/Menthol LOZ* 1 LOZENGE PO PRN (16:16)
[2016-05-19] MEDS: Morphine INJ* 2 MG/ML 1 ML CARPUJECT IV PRN ×4 (00:25→19:49)
[2016-05-19] MEDS: LORazepam TAB(*) 1 MG PO PRN (00:50)
[2016-05-19] MEDS: Mometasone/Formoter 100/5 MDI INH SCH ×2 (08:56→20:19)
[2016-05-19] MEDS: Albuterol/Ipratropium NEB.SOL* Albuterol 2.5 MG/Ipratropium 0.5 MG 3 ML INH PRN ×4 (08:56→23:57)
[2016-05-19] MEDS: Tamsulosin CAP* 0.4 MG PO SCH (10:11)
[2016-05-20] MEDS: Morphine INJ* 2 MG/ML 1 ML CARPUJECT IV PRN ×4 (00:05→04:33)
[2016-05-20] MEDS: LORazepam INJ* 2 MG/ML 1 ML VIAL IV PRN (00:20)
[2016-05-20] MEDS: LORazepam TAB(*) 1 MG PO PRN ×2 (02:43→04:33)
[2016-05-20] MEDS: Albuterol/Ipratropium NEB.SOL* Albuterol 2.5 MG/Ipratropium 0.5 MG 3 ML INH PRN ×3 (03:39→21:24)
[2016-05-20] MEDS: Morphine INJ* 4 MG/ML 1 ML CARPUJECT IV PRN ×4 (05:52→17:42)
[2016-05-20] MEDS: Tamsulosin CAP* 0.4 MG PO SCH (08:16)
[2016-05-20] MEDS: Mometasone/Formoter 100/5 MDI INH SCH ×2 (09:12→20:54)
[2016-05-20 10:39] VITALS: BP 121/61
--- NOTE | 2016-05-20 11:00 | PN ---
Progress Note - Progress Note SOAP: Subjective: [] No pain, difficulty breathing. Says, "ready to go". Does not appear depressed. Acetaminophen (Tylenol Tab*) 650 mg PO Q4H PRN PRN Reason: FEVER/PAIN Albuterol/Ipratropium (Duoneb Neb.Sameera*) 1 neb INH Q4H PRN PRN Reason: sob Last Admin: 05/20/16 09:15 Dose: 1 neb Lorazepam (Ativan Inj*) 1 mg IV BEDTIME PRN PRN Reason: SLEEP Last Admin: 05/20/16 00:20 Dose: 1 mg Lorazepam (Ativan Tab(*)) 2 mg PO Q2H PRN PRN Reason: ANXIETY/SOB Mometasone Furoate/Formoterol Fumar (Dulera 100/5 Mdi*) 2 puff INH BID [facility] Last Admin: 05/20/16 09:12 Dose: 2 puff Morphine Sulfate (Morphine Inj (Syringe)*) 4 mg IV Q1H PRN PRN Reason: PAIN OR [employer] HUNGER Last Admin: 05/20/16 08:16 Dose: 4 mg Tamsulosin HCl (Flomax Cap*) 0.4 mg PO DAILY [facility] Last Admin: 05/20/16 08:16 Dose: 0.4 mg Throat Lozenges (Chloraseptic Jae*) 2 jae PO Q1H PRN PRN Reason: COUGHING Last Admin: 05/18/16 17:31 Dose: 2 jae Objective: [] Vital Signs Temp Pulse Resp BP Pulse Ox 98.1 F 123 20 121/61 95 05/20/16 08:03 05/20/16 09:16 05/20/16 10:38 05/20/16 08:03 05/20/16 09:16 HEENT - No thrush, oxygen, cushnoid Crackles and bronchial sounds, no wheezing Obease and distended, has BS Tr edema Assessment: [] End stage lung cancer and on comfort measures. Cannot go home, quesion of NHP with hospice or hospice residence. Plan: []1. Current medications appear adequate 2. Hospice consult today
[2016-05-20] MEDS ORDERED: Ondansetron ODT TAB* 4 MG PO PRN (12:06)
--- NOTE | 2016-05-20 19:50 | CONS ---
PALLIATIVE CARE CONSULTATION REPORT: DATE OF CONSULTATION: 05/20/16 REQUESTING PROVIDER FOR CONSULT: Jasmin Whelan MD. REASON FOR CONSULTATION: Evaluation for hospice. HISTORY OF PRESENT ILLNESS: This is a 75-year-old male with a past medical history of locally advanced non-small cell lung cancer with progression of disease and deterioration of performance despite palliative chemotherapy. He has undergone cycles of chemotherapy and radiation and the patient states that he has not been doing well for the past year. The patient was admitted on 05/17 for increasing shortness of breath. This was thought to be secondary to progression of the lung disease. Oncology has been involved in his care here and they felt that he cannot tolerate any further therapy with this for his lung cancer. He is no longer able to care for himself at home. The patient is agreeable to hospice and he understands that this is his time to go. He does state he has some abdominal pain. He has shortness of breath and nausea. He has had a limited appetite as well. The patient is agreeable that it is not safe for him to go back home. Otherwise, remainder of the review of systems is negative. PAST MEDICAL HISTORY: 1. Advanced small cell lung cancer, status post chemotherapy and radiation, followed by Dr. Whelan. 2. Severe COPD, on 3 L of oxygen. 3. BPH. 4. Anxiety disorder. MEDICATIONS: Inpatient medications: 1. Tylenol 650 every 4 hours as needed. 2. DuoNeb q.4 hours as needed. 3. Benzocaine menthol lozenges 2 lozenges every hour as needed for coughing. 4. Lorazepam 2 mg p.o. as needed. 5. Mometasone/formoterol 2 puffs inhaled b.i.d. 6. Morphine 4 mg IV q.1 hour as needed. 7. Morphine oral concentrate 5 mg sublingual q.2 hours as needed. 8. Zofran 8 mg every 6 hours as needed for nausea. 9. Tamsulosin 0.4 mg p.o. daily. ALLERGIES: PENICILLIN develops hives. FAMILY HISTORY: Reviewed and noncontributory. SOCIAL HISTORY: The patient was living at home with his Betina who is his healthcare proxy. He quit smoking a year ago. No alcohol use. His MOLST form has been filled out and is comfort measures only. He has 5 children. His son is coming in on Friday, the 18th, from [facility]. REVIEW OF SYSTEMS: As mentioned in HPI. PHYSICAL EXAM: Vitals: Temp 98.1, pulse rate 123, respiratory rate 20, oxygen saturation 95% on 6 L, blood pressure 121/60. General: No acute distress, resting comfortably. HEENT: Neck is supple. No lymphadenopathy. Pupils are equal, reactive, anicteric. Head: Normocephalic. Cardiac: Tachycardia. Respiratory: Coarse rhonchorous breath sounds bilaterally. Abdomen: Soft, nontender and nondistended. Extremities: No cyanosis, clubbing, or edema. Neurologic: Alert and oriented x3. No focal neurologic deficits. ASSESSMENT: This is a 75-year-old male with past medical history of advanced small cell lung cancer who presented to the emergency room on the with increasing dyspnea and deconditioning, which was felt to be secondary to progression of his lung cancer. There are no more options that the patient can tolerate due to his deterioration and his ability to care for himself at home and the patient is now eligible for hospice with the principal diagnosis of advanced non-small cell lung carcinoma. The patient is agreeable to this and has accepted this and wants to become more comfortable in treatment of his symptoms of pain and nausea and shortness of breath. He realizes that it is not safe for him to go back home unless he has 24-hour care, which does not seem to be a viable option and that going to a jail with hospice or the residence is a more viable option for him. I will try to get in touch with the to speak more at length regarding disposition planning. In the meantime, I will add Roxanol for him and Zofran as well in addition to his current regimen. PATIENT TIME: Greater than 45 minutes was spent doing this consultation, more than half the time was spent in direct patient contact. Thank you for this consultation. We will follow along with you. [id number]/[facility] #: [id number] ELEUTERIO
[2016-05-21] MEDS: Morphine INJ* 4 MG/ML 1 ML CARPUJECT IV PRN ×9 (01:05→23:06)
[2016-05-21] MEDS: Albuterol/Ipratropium NEB.SOL* Albuterol 2.5 MG/Ipratropium 0.5 MG 3 ML INH PRN ×4 (01:06→20:40)
[2016-05-21] MEDS: Mometasone/Formoter 100/5 MDI INH SCH ×2 (08:23→20:42)
--- NOTE | 2016-05-21 10:25 | PN ---
Progress Note - Progress Note SOAP: Subjective: feeling better with increased doses of morphine, though still SOB. wants something to help him sleep Objective: sitting up, conversing, in nad Assessment: 75 yo M w end stage lung cancer on comfort measures only Acetaminophen (Tylenol Tab*) 650 mg PO Q4H PRN PRN Reason: FEVER/PAIN Albuterol/Ipratropium (Duoneb Neb.Sameera*) 1 neb INH Q4H PRN PRN Reason: sob Last Admin: 05/21/16 08:22 Dose: 1 neb Heparin Sodium (Porcine) (Heparin Flush Port (Ivad)) 5 ml FLUSH DAILY [facility] PRN Reason: Protocol Last Admin: 05/20/16 18:56 Dose: Not Given Lorazepam (Ativan Inj*) 1 mg IV BEDTIME PRN PRN Reason: SLEEP Last Admin: 05/20/16 00:20 Dose: 1 mg Lorazepam (Ativan Tab(*)) 2 mg PO Q2H PRN PRN Reason: ANXIETY/SOB Mometasone Furoate/Formoterol Fumar (Dulera 100/5 Mdi*) 2 puff INH BID [facility] Last Admin: 05/21/16 08:23 Dose: 2 puff Morphine Sulfate (Morphine Inj (Syringe)*) 4 mg IV Q1H PRN PRN Reason: 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
[2016-05-21] MEDS: Tamsulosin CAP* 0.4 MG PO SCH (10:39)
[2016-05-21] MEDS: Morphine ORAL CONCENTRATE* 5 MG/0.25 ML ORAL.SYRIN SL PRN (10:52)
[2016-05-21] MEDS: LORazepam TAB(*) 1 MG PO PRN ×2 (10:54→19:00)
[2016-05-21] MEDS: LORazepam INJ* 2 MG/ML 1 ML VIAL IV PRN (21:58)
[2016-05-21] MEDS: traZODone TAB* 100 MG PO SCH (22:00)
[2016-05-22] MEDS: Morphine INJ* 4 MG/ML 1 ML CARPUJECT IV PRN ×2 (04:58→07:52)
[2016-05-22] MEDS: LORazepam TAB(*) 1 MG PO PRN ×3 (04:58→14:12)
[2016-05-22] MEDS: Mometasone/Formoter 100/5 MDI INH SCH ×2 (08:24→20:46)
[2016-05-22] MEDS: Morphine ORAL CONCENTRATE* 5 MG/0.25 ML ORAL.SYRIN SL PRN ×2 (09:52→21:11)
[2016-05-22] MEDS: Tamsulosin CAP* 0.4 MG PO SCH (09:57)
[2016-05-22] MEDS ORDERED: Morphine ORAL CONCENTRATE* 5 MG/0.25 ML ORAL.SYRIN SL PRN ×3 (10:27→15:12)
--- NOTE | 2016-05-22 10:40 | DS ---
- Discharge Summary ADMIT DATE: 05/17/2016 DISCHARGE DATE:05/22/2016 DISCHARGE DIAGNOSIS: 1. HOSPICE CARE/COMFORT MEASURES 2. END STAGE LUNG CANCER 3. RESPIRATORY FAILURE DISCHARGE MEDICATIONS: Acetaminophen (Tylenol Tab*) 650 mg PO Q4H PRN PRN Reason: FEVER/PAIN Albuterol/Ipratropium (Duoneb Neb.Sameera*) 1 neb INH Q4H PRN PRN Reason: sob Heparin Sodium (Porcine) (Heparin Flush Port (Ivad)) 5 ml FLUSH DAILY [facility] PRN Reason: Protocol Lorazepam (Ativan Tab(*)) 2 mg PO Q2H PRN PRN Reason: ANXIETY/SOB Mometasone Furoate/Formoterol Fumar (Dulera 100/5 Mdi*) 2 puff INH BID [facility] Last Admin: 05/22/16 08:24 Dose: 2 puff Morphine Sulfate (Morphine Oral Concentrate*) 15 mg SL Q2H PRN PRN Reason: PAIN Ondansetron HCl (Zofran Odt Tab*) 8 mg PO Q6H PRN PRN Reason: NAUSEA Tamsulosin HCl (Flomax Cap*) 0.4 mg PO DAILY [facility] Last Admin: 05/22/16 09:57 Dose: Not Given Throat Lozenges (Chloraseptic Jae*) 2 jae PO Q1H PRN PRN Reason: COUGHING Trazodone HCl (Desyrel Tab*) 100 mg PO BEDTIME [facility] Last Admin: 05/21/16 22:00 Dose: 100 mg HOSPITAL COURSE: Mr. Norton was admitted on 05/17 with increasing respiratory distress after a recent admission for the same. He has progressive nonsmall cell lung cancer with progressive respiratory failure and a poor performance status. He did get one cycle of palliative pemetrexed but continued to deteriorate. Given this we discussed pursuing comfort measures only, which he and his family were in agreement with. He will be transferred to [facility] on hospice. His morphine and ativan should be generously titrated up to ensure comfort with respirations in his last days. He does have a port and could get a morphine drip if necessary. >30 mins spent, >50% in face to face counseling
[2016-05-22] MEDS ORDERED: Morphine INJ* 4 MG/ML 1 ML CARPUJECT IV ONE (14:30)
--- NOTE | 2016-05-22 15:16 | PN ---
Progress Note - Progress Note Note: Palliative care follow up note. Patient grimacing, gasping for air asking for more medication for his shortness of breath. Tachypneic with increase work of breathing, poor aeration and rhonchorous breath sounds. RN has not yet given morphine IV that was just ordered by Dr. Whelan. Morphine dose was increased as well. RN concerned that SL medication does not work quickly enough. Consider routine morphine and/or Fentanyl patch with break through prn SL morphine. Patient to be discharged tomorrow to [facility].
[2016-05-22] MEDS: Albuterol/Ipratropium NEB.SOL* Albuterol 2.5 MG/Ipratropium 0.5 MG 3 ML INH PRN (20:44)
[2016-05-22] MEDS: Morphine TAB Extended Release (*) 30 MG TAB.ER PO SCH (21:10)
[2016-05-22] MEDS: traZODone TAB* 100 MG PO SCH (21:10)
[2016-05-22] MEDS: LORazepam INJ* 2 MG/ML 1 ML VIAL IV PRN (21:11)
[2016-05-23] MEDS: Morphine ORAL CONCENTRATE* 5 MG/0.25 ML ORAL.SYRIN SL PRN ×3 (02:05→10:06)
[2016-05-23] MEDS ORDERED: Scopolamine 1.5 mg* PATCH TRANSDERM SCH (08:00)
[2016-05-23] MEDS: Tamsulosin CAP* 0.4 MG PO SCH ×2 (08:02→09:05)
[2016-05-23] MEDS: Morphine TAB Extended Release (*) 30 MG TAB.ER PO SCH ×2 (08:02→09:05)
[2016-05-23] MEDS: Albuterol/Ipratropium NEB.SOL* Albuterol 2.5 MG/Ipratropium 0.5 MG 3 ML INH PRN (08:20)
[2016-05-23] MEDS: Mometasone/Formoter 100/5 MDI INH SCH (08:20)
[2016-05-26] MEDS ORDERED: Scopolamine PATCH Remove* 1 NOTE MISC PATCH OFF SCH (08:00)
== END 2016-05-23 10:05 | DRG 181 ==
LOC: ED 16:24 → MEDTELE 20:18 → MED 05-19 06:30
PROVIDERS: ADMIT Hospitalist; ATTEND Internal Medicine Hematology & Oncology
DX: C34.90 Malignant neoplasm of unspecified part of unspecified bronchus or lung (principal); J96.10 Chronic respiratory failure, unspecified whether with hypoxia or hypercapnia; Z99.81 Dependence on supplemental oxygen; J44.1 Chronic obstructive pulmonary disease with (acute) exacerbation; J90 Pleural effusion, not elsewhere classified; Z87.01 Personal history of pneumonia (recurrent); I10 Essential (primary) hypertension; J45.909 Unspecified asthma, uncomplicated; F41.0 Panic disorder [episodic paroxysmal anxiety]; F32.9 Major depressive disorder, single episode, unspecified; Z80.9 Family history of malignant neoplasm, unspecified; Z98.49 Cataract extraction status, unspecified eye; Z87.891 Personal history of nicotine dependence; N40.0 Benign prostatic hyperplasia without lower urinary tract symptoms; Z66 Do not resuscitate; Z51.5 Encounter for palliative care
CPT/HCPCS: 36415; 71010; 71275; 80048; 80053; 81003; 83605; 83880; 84145; 84300; 84484; 84520; 85025; 85379; 85610; 85730; 87040; 87070; 87077; 87205; 93005; 94640; 94760; 99232; 99233; 99239; A9270-GY; J1642; J1644; J1650; J1940; J2060; J2270; J2930; J3370; Q9967